=== PATIENT | female | born 1955 | race Caucasian/White ===

== ENCOUNTER 2018-02-20 02:47 | Inpatient (IN) ==
[2018-02-20] MEDS ORDERED: Vancomycin 1,000 MG VIAL IVPB ONE (03:04)
[2018-02-20] MEDS ORDERED: Piperacillin/Tazobactam 3.375 GM in 0.9 % Sodium Chloride Mini Bag 100 ML IVPB ONE (03:04)
[2018-02-20] MEDS ORDERED: Isovue-370 500 ML INFUS..BTL IV ONE (03:04)
[2018-02-20] MEDS: 0.9 % Sodium Chloride 1,000 ML IVC ONE ×2 (03:44→03:56)
[2018-02-20 03:52] LABS: Basophils # 0.1 K/mcL (0.0-0.2); Basophils % 0.5 %; Eosinophils # 0.3 K/mcL (0.0-0.6); Eosinophils % 2.6 %; Hematocrit 46.3 % (35.3-44.9); Hemoglobin 14.9 g/dL (11.5-15.4); Immature Granulocytes % 1.7 % (0-4); Lymphocytes # 3.5 K/mcL (0.6-4.6); Lymphocytes % 28.3 %; Mean Corpuscular HGB Conc 32.2 g/dL (31.6-35.5); Mean Corpuscular Hemoglobin 30.6 pg (28.0-33.3); Mean Corpuscular Volume 95.1 fL (83.0-100.0); Mean Platelet Volume 9.7 fL (9.4-12.4); Monocytes # 0.5 K/mcL (0.0-1.3); Monocytes % 3.6 %; Neutrophils # 7.9 K/mcL (1.6-8.9); Platelet Count 296 K/mcL (140-400); Red Blood Count 4.87 M/mcL (3.82-4.97); Red Cell Distribution Width 14.4 % (11.5-14.5); Segmented Neutrophils % 63.3 %
[2018-02-20] MEDS ORDERED: Furosemide 80 MG in 0.9 % Sodium Chloride 50 ML IVPB ONE (03:59)
[2018-02-20 04:00] LABS: INR 1.1; Prothrombin Time 12.4 Seconds (9.4-12.1)
[2018-02-20] MEDS ORDERED: Furosemide 100 MG/10 ML VIAL ONE ×2 (04:01→04:51)
[2018-02-20 04:03] LABS: ABG Base Excess -5 mEq/L (-2 to 3); ABG HCO3 28 mEq/L (21-27); ABG Oxygen Saturation 82 % (95-98); ABG PCO2 91 mmHg (35-45); ABG PO2 65 mmHg (85-104); ABG TCO2 31 mEq/L (20-26)
[2018-02-20] MEDS ORDERED: *HR* Rocuronium Bromide 50 MG/5 ML VIAL IVP ONE (04:07)
[2018-02-20] MEDS ORDERED: *HR* Etomidate 20 MG/10 ML AMPUL IVP ONE (04:07)
[2018-02-20 04:18] LABS: Albumin 3.4 g/dL (3.5-5.7); Albumin/Globulin Ratio 1.1 (1.1-2.2); Bilirubin,Direct 0.1 mg/dL (0.0-0.2); Bilirubin,Indirect 0.2 mg/dL (0.0-1.2); Bilirubin,Total 0.3 mg/dL (0.3-1.0); Globulin 3.1 g/dL (2.4-3.5); Total Protein 6.5 g/dL (6.4-8.9)
[2018-02-20] MEDS ORDERED: Nitroglycerin 25 MG/250 ML INFUS..BTL IVC ONE (04:18)
[2018-02-20 04:20] LABS: BUN/Creatinine Ratio 18 (6-26); Blood Urea Nitrogen 18 mg/dL (8-23); Calcium 8.5 mg/dL (8.6-10.3); Carbon Dioxide 21 mEq/L (23-29); Chloride 100 mEq/L (98-107); Glucose 398 mg/dL (70-105); Osmolality,Calculated 291 (280-300); Potassium 4.2 mEq/L (3.5-5.1); Sodium 131 mEq/L (136-145); eGFR For African Americans > 60 (> 60); eGFR For Non-African Americans 56 (> 60)
[2018-02-20 04:23] LABS: Troponin I 0.84 ng/mL (< 0.04)
[2018-02-20] MEDS ORDERED: Heparin 25,000 UNIT/500 ML D5W 25,000 UNIT/500 ML BAG IVC ONE (04:25)
[2018-02-20] MEDS ORDERED: *HR* Heparin 5,000 UNIT/ML VIAL IVP PRN ×2 (04:30)
[2018-02-20] MEDS ORDERED: *HR* Heparin 5,000 UNIT/ML VIAL IVP ONE (04:30)
--- NOTE | 2018-02-20 04:54 | Emergency Department Note ---
Disposition Clinical Impression: Respiratory failure Qualifiers: Chronicity: acute Respiratory failure complication: hypoxia and hypercapnia Qualified Code(s): J96.01 - Acute respiratory failure with hypoxia Pulmonary edema Qualifiers: Chronicity: acute Qualified Code(s): J81.0 - Acute pulmonary edema Disposition: Admitted As Inpatient Condition: Critical Time of Disposition: 05:52 General Adult HPI - General Chief complaint: ED Shortness of Breath/Dyspnea Time Seen by Provider: 02/20/18 03:04 Source: family, EMS Mode of arrival: EMS Limitations: physical limitation Nursing Notes Reviewed: Yes Vital Signs Reviewed: Yes - History of Present Illness HPI Narrative: Patient is a 62-year-old female with a past medical history of diabetes and hypertension came in by squad for respiratory decompensation. [place] the patient was completely fine until she began having chest pain that radiated into her right arm and he called the squad. He states by time the squad arrived the patient had deteriorated she is having difficulty breathing. On arrival by squad the patient was spitting poor oxygen saturation she was frothing at the mouth she is also very pale and diaphoretic. Pain Scale: 0 - Related Data Home Medications Medication Instructions Recorded Confirmed Amlodipine 10/21/16 Aspirin 10/21/16 10/21/16 Lexapro 10/21/16 Lisinopril-HCTZ 10-12.5 10/21/16 Metformin 10/21/16 Previous Rx's Medication Instructions Recorded Albuterol Sulfate [Albuterol 2 puff IH Q4HR PRN #1 unit 10/21/16 Inhaler] Amoxicillin/Clavulanate [Augmentin] 875 mg PO BIDWM #20 tablet 10/21/16 Ondansetron [Zofran ODT] 8 mg SL TID PRN #9 tab.rapdis 10/21/16 Oseltamivir [Tamiflu] 75 mg PO BID #10 capsule 10/21/16 Allergies Allergy/AdvReac Type Severity Reaction Status Date / Time No Known Allergies Allergy Verified 10/21/16 16:46 Limitations: ROS unobtainable due to patients medical condition Past Medical History - Past Medical History Attestation: Yes The following information was validated with the patient. Medical history: Reports: diabetes, hypertension Psychiatric history: Reports: no psych history - Social History Smoking Status: Former smoker Smokeless Tobacco Status: No Alcohol use: Reports: none Drug use: Reports: none Physical Exam - General General appearance: obtunded - Head Head exam: atraumatic, normocephalic, normal inspection - Eye Eye exam: Present: normal appearance, PERRL - ENT ENT exam: normal exam, mucous membranes dry - Neck Neck exam: Present: normal inspection, trachea midline - Chest Chest inspection: Present: normal inspection, symmetric chest wall rise. Absent : tenderness - Respiratory Respiratory exam: Present: respiratory distress (tachypnea with hypoxia; bag valve masked), other (lung sounds diminished bilaterally, diffuse rales) - Cardiovascular Cardiovascular exam: Present: tachycardia, normal heart sounds, +S1, +S2 - Abdominal Exam Abdominal exam: Present: soft, normal bowel sounds - Expanded Lower Extremity Exam Upper leg exam: Present: other (bilateral pulses 2+ in upper and lower extremities) Neurovascular/Tendon exam: Absent: pulse deficit - Neurological Exam Neurological exam: Present: other (altered mental status followed by sedation and intubation) - Skin Skin exam: Present: cyanosis (of the face), diaphoresis, pallor Course Course Narrative: On arrival the patient's vital signs showed saturation of 70% on 15 L nonrebreather, tachycardia in the 160s, normotension. Symptoms sound acute in nature. Given the patient's acute presentation and normotension with hypoxia and tachycardia, PE versus acute pulmonary edema was initially considered. The patient was rapidly intubated after being aggressively bag-valve masked. Peripheral IV access was obtained as well as an IO placed. Her EKG was negative for ST segment changes as well as atrial fibrillation with RVR. CT of the head and the chest which showed no evidence of pulmonary embolism but did show significant pulmonary edema which was preventing oxygenation. Cardiology consultation was made by the attending Dr. Ibarra in his recommended aggressive diuresis as well as dopamine for chronotropic support. Patient was given 80 mg of furosemide with scheduled 20 mg hourly. A right IJ was placed for access. Dopamine was initiated. Patient continued to be normotensive. Arterial line was placed. I show nitroglycerin was initiated however patient had an immediate drop in blood pressure. Broad-spectrum antibiotics were initiated patient likely had aspiration. Blood cultures sent. Patient does have lactic acidosis. Also considering GA, patient was heparinized. 5:05: Patient remains tachycardic at 160, oxygen saturation of 85%, and blood pressure of 88/54. Receiving 2nd dose of lasix 20mg, total 100mg. Dopamine drip running. Arterial line placed. Repeat EKG ordered. 5:19: HR 150, BP 92/33, 90% on vent - Discussed patient case with the hospitalist and agree to accept the patient to the ICU. 5:41: Repeat EKG shows sinus tachycardia at a rate of 149 bpm. Normal axis. CO is 95, QRS is 88, QT is 325 and QTc is 410 and these are within normal limits. No signs of ischemia. 6:30: Patient appears to be improving. Transferred to ICU for continuation of care. Vital Signs Temperature 98.6 F 02/20/18 02:52 Pulse Rate 163 02/20/18 02:52 Respiratory Rate 16 02/20/18 02:52 Blood Pressure 128/110 02/20/18 02:52 O2 Sat by Pulse Oximetry 74 02/20/18 02:52 Temperature 98.6 F 02/20/18 02:52 Pulse Rate 155 02/20/18 06:16 Respiratory Rate 28 02/20/18 06:39 Blood Pressure 88/50 02/20/18 06:39 O2 Sat by Pulse Oximetry 85 02/20/18 06:16 Oxygen Delivery Oxygen Delivery Ventilator Procedures - Central Line Placement Right IJ Central Line Inserted*: Yes Central Line Catheter Replacement*: Yes Central Line Insertion: emergent Procedural Pause: verify patient name and date of , timeout performed per policy, chris and assess the site, assemble equipment and verify supplies, perform hand hygiene During the Procedure: clinician is wearing sterile gloves, cap, mask,& gown during insertion, sterile field and sterile technique are maintained, patient's face is covered with drape or mask and wearing a cap, everyone in room is wearing a mask Central Line Prep: Chlorhexidine scrub Prep the Procedure Site: apply chloraprep to the skin using a back and forth scrubbing motion, apply chloraprep for 30 seconds (upper body), 1-2 min ( femoral sites), allow prep to dry, drape the patient with a full body drape Ultrasound Used for Placement: Yes Central Line Lumen Inserted: triple Post Procedure: sutured in place, good blood return, all ports aspirated, flushed, capped, sterile dressing applied, guide wire removed and visualized, dressing is dated Post Procedure X-Ray: tip of catheter in good position, no pneumothorax seen Patient Tolerated Procedure: well, no complications Complications: none Name of Clinician Inserting Central Line: valentina Clinician Assisting/Completing Checklist: jody Date: 02/20/18 Time: 05:54 - Intubation Time out performed: Yes sedative: Etomidate Mg Given: 20 paralytic: Rocuronium Mg Given: 100 Laryngoscope: Darron ET Tube Size: 7.5 ET Tube Uncuffed: Yes Tube Secured Depth (cm): 23 Tube Secured Location: lips Tube Placement Confirmation: visualized tube passing through cords, equal breath sounds bilaterally, no breath sounds over epigastrium Patient Tolerated Procedure: well Intubation Complications: none - IO Left Tibia Time Out Performed: Yes IO Instrument Used to Penetrate the Cortex: battery powered IO drill Patient Tolerated Procedure: well Complications: none Medical Decision Making - Medical Records Medical records reviewed: Yes I reviewed the patient's medical records. - Lab Data Lab results reviewed: Yes I reviewed the patient's lab results. Result diagrams: 02/20/18 03:37 02/20/18 03:37 Lab Results 02/20/18 02/20/18 02/20/18 Range/Units 03:37 03:37 03:37 WBC 12.5 H (4.3-11.1) K/mcL RBC 4.87 (3.82-4.97) M/mcL Hgb 14.9 (11.5-15.4) g/dL Hct 46.3 H (35.3-44.9) % MCV 95.1 (83.0-100.0) fL MCH 30.6 (28.0-33.3) pg MCHC 32.2 (31.6-35.5) g/dL RDW 14.4 (11.5-14.5) % Plt Count 296 (140-400) K/mcL MPV 9.7 (9.4-12.4) fL Immature Gran % 1.7 (0-4) % Seg Neutrophils % 63.3 % Lymphocytes % 28.3 % Monocytes % 3.6 % Eosinophils % 2.6 % Basophils % 0.5 % Neutrophils # 7.9 (1.6-8.9) K/mcL Lymphocytes # 3.5 (0.6-4.6) K/mcL Monocytes # 0.5 (0.0-1.3) K/mcL Eosinophils # 0.3 (0.0-0.6) K/mcL Basophils # 0.1 (0.0-0.2) K/mcL PT 12.4 H (9.4-12.1) Seconds INR 1.1 APTT 31.7 (26.0-36.0) Seconds Sample Site ABG pH (7.32-7.45) pH Units ABG pCO2 (35-45) mmHg ABG pO2 (85-104) mmHg ABG HCO3 (21-27) mEq/L ABG Total CO2 (20-26) mEq/L ABG O2 Saturation (95-98) % ABG Base Excess (-2 to 3) mEq/L Ceasar Test O2 Delivery Device Inspired O2 (1-15=lpm [id number]=%) Sodium (136-145) mEq/L Potassium (3.5-5.1) mEq/L Chloride (98-107) mEq/L Carbon Dioxide (23-29) mEq/L BUN (8-23) mg/dL Creatinine (0.60-1.20) mg/dL Est GFR ( Amer) (> 60) Est GFR (Non-Af Amer) (> 60) BUN/Creatinine Ratio (6-26) Glucose (70-105) mg/dL Calculated Osmolality (280-300) Lactic Acid (0.5-2.2) mmol/L Calcium (8.6-10.3) mg/dL Total Bilirubin 0.3 (0.3-1.0) mg/dL Direct Bilirubin 0.1 (0.0-0.2) mg/dL Indirect Bilirubin 0.2 (0.0-1.2) mg/dL AST 71 H (13-39) Units/L ALT 119 H (7-52) Units/L Alkaline Phosphatase 73 (34-104) Units/L Creatine Kinase 104 (30-223) Units/L Troponin I (< 0.04) ng/mL B-Natriuretic Peptide (Less than 100) pg/mL Serum Total Protein 6.5 (6.4-8.9) g/dL Albumin 3.4 L (3.5-5.7) g/dL Globulin 3.1 (2.4-3.5) g/dL Albumin/Globulin Ratio 1.1 (1.1-2.2) 02/20/18 02/20/18 02/20/18 Range/Units 03:37 03:37 03:37 WBC (4.3-11.1) K/mcL RBC (3.82-4.97) M/mcL Hgb (11.5-15.4) g/dL Hct (35.3-44.9) % MCV (83.0-100.0) fL MCH (28.0-33.3) pg MCHC (31.6-35.5) g/dL RDW (11.5-14.5) % Plt Count (140-400) K/mcL MPV (9.4-12.4) fL Immature Gran % (0-4) % Seg Neutrophils % % Lymphocytes % % Monocytes % % Eosinophils % % Basophils % % Neutrophils # (1.6-8.9) K/mcL Lymphocytes # (0.6-4.6) K/mcL Monocytes # (0.0-1.3) K/mcL Eosinophils # (0.0-0.6) K/mcL Basophils # (0.0-0.2) K/mcL PT (9.4-12.1) Seconds INR APTT (26.0-36.0) Seconds Sample Site ABG pH (7.32-7.45) pH Units ABG pCO2 (35-45) mmHg ABG pO2 (85-104) mmHg ABG HCO3 (21-27) mEq/L ABG Total CO2 (20-26) mEq/L ABG O2 Saturation (95-98) % ABG Base Excess (-2 to 3) mEq/L Ceasar Test O2 Delivery Device Inspired O2 (1-15=lpm [id number]=%) Sodium 131 L (136-145) mEq/L Potassium 4.2 (3.5-5.1) mEq/L Chloride 100 (98-107) mEq/L Carbon Dioxide 21 L (23-29) mEq/L BUN 18 (8-23) mg/dL Creatinine 1.00 (0.60-1.20) mg/dL Est GFR ( Amer) > 60 (> 60) Est GFR (Non-Af Amer) 56 L (> 60) BUN/Creatinine Ratio 18 (6-26) Glucose 398 H (70-105) mg/dL Calculated Osmolality 291 (280-300) Lactic Acid 5.0 H* (0.5-2.2) mmol/L Calcium 8.5 L (8.6-10.3) mg/dL Total Bilirubin (0.3-1.0) mg/dL Direct Bilirubin (0.0-0.2) mg/dL Indirect Bilirubin (0.0-1.2) mg/dL AST (13-39) Units/L ALT (7-52) Units/L Alkaline Phosphatase (34-104) Units/L Creatine Kinase (30-223) Units/L Troponin I 0.84 H* (< 0.04) ng/mL B-Natriuretic Peptide 93 (Less than 100) pg/mL Serum Total Protein (6.4-8.9) g/dL Albumin (3.5-5.7) g/dL Globulin (2.4-3.5) g/dL Albumin/Globulin Ratio (1.1-2.2) 02/20/18 Range/Units 03:59 WBC (4.3-11.1) K/mcL RBC (3.82-4.97) M/mcL Hgb (11.5-15.4) g/dL Hct (35.3-44.9) % MCV (83.0-100.0) fL MCH (28.0-33.3) pg MCHC (31.6-35.5) g/dL RDW (11.5-14.5) % Plt Count (140-400) K/mcL MPV (9.4-12.4) fL Immature Gran % (0-4) % Seg Neutrophils % % Lymphocytes % % Monocytes % % Eosinophils % % Basophils % % Neutrophils # (1.6-8.9) K/mcL Lymphocytes # (0.6-4.6) K/mcL Monocytes # (0.0-1.3) K/mcL Eosinophils # (0.0-0.6) K/mcL Basophils # (0.0-0.2) K/mcL PT (9.4-12.1) Seconds INR APTT (26.0-36.0) Seconds Sample Site L Radial ABG pH 7.10 L* (7.32-7.45) pH Units ABG pCO2 91 H* (35-45) mmHg ABG pO2 65 L (85-104) mmHg ABG HCO3 28 H (21-27) mEq/L ABG Total CO2 31 H (20-26) mEq/L ABG O2 Saturation 82 L (95-98) % ABG Base Excess -5 L (-2 to 3) mEq/L Ceasar Test Positive O2 Delivery Device Bagging Inspired O2 100.0 (1-15=lpm ka62-487=%) Sodium (136-145) mEq/L Potassium (3.5-5.1) mEq/L Chloride (98-107) mEq/L Carbon Dioxide (23-29) mEq/L BUN (8-23) mg/dL Creatinine (0.60-1.20) mg/dL Est GFR ( Amer) (> 60) Est GFR (Non-Af Amer) (> 60) BUN/Creatinine Ratio (6-26) Glucose (70-105) mg/dL Calculated Osmolality (280-300) Lactic Acid (0.5-2.2) mmol/L Calcium (8.6-10.3) mg/dL Total Bilirubin (0.3-1.0) mg/dL Direct Bilirubin (0.0-0.2) mg/dL Indirect Bilirubin (0.0-1.2) mg/dL AST (13-39) Units/L ALT (7-52) Units/L Alkaline Phosphatase (34-104) Units/L Creatine Kinase (30-223) Units/L Troponin I (< 0.04) ng/mL B-Natriuretic Peptide (Less than 100) pg/mL Serum Total Protein (6.4-8.9) g/dL Albumin (3.5-5.7) g/dL Globulin (2.4-3.5) g/dL Albumin/Globulin Ratio (1.1-2.2) - Radiology Data Radiology results reviewed: Yes I reviewed the patient's radiology results. Head CT 02/20/18 00:00 IMPRESSION: No acute intracranial abnormality. Parotid calcifications bilaterally, as can be seen in Sjogren's syndrome. D/ / Ky Aguilar MD / Ky Aguilar MD Interpreting Provider: Ky Aguilar MD Chest CTA 02/20/18 03:05 IMPRESSION: No evidence of pulmonary embolism. Severe airspace disease with very little aerated lung may represent pulmonary edema or other acute process. D/ / Ky Aguilar MD / Ky Aguilar MD Interpreting Provider: Ky Aguilar MD Chest X-Ray 02/20/18 04:33 IMPRESSION: Endotracheal tube and ET tube projecting at adequate position as above Diffuse airspace disease which may represent pulmonary edema, multifocal pneumonia or combination of the above. D/ / Juan Luis Avelar MD / Juan Luis Avelar MD Interpreting Provider: Juan Luis Avelar MD - EKG Data EKG #1 EKG attestation: Yes I reviewed and interpreted this EKG. EKG results narrative: 5:41 shows sinus tachycardia at a rate of 149 bpm. No signs of ischemia. EKG #2 EKG attestation: Yes I reviewed and interpreted this EKG. Attestation Statement - Attestation Attestation: I examined this patient and my medical decision-making was reviewed with the Resident Physician. I agree with the documented findings, disposition and treatment plan as described except to the extent set forth below. Findings consistent with acute hypoxemic respiratory failure. Patient arrives by EMS with frothy sputum was and profound hypoxia and pallor. The patient was immediately assisted with bag valve mask ventilations. IV access was obtained. The patient was rapidly intubated with first pass access. I do suspect pulmonary embolism versus acute pulmonary edema. The patient's blood pressure is normal tensive and she does not a history of hypertension. The onset of her symptoms was reported to be acute witnessed by people at a campground. After emergent intubation there was ongoing difficulty with oxygenation. She can currently had tachycardia. EKG showed nonspecific ST segment changes as well as A. fib with rapid ventricular response. IV ACCESS WAS OBTAINED AND THE PATIENT WAS EMERGENTLY TAKEN TO CAT SCAN FOR ANGIOGRAPHY OF THE CHEST AND A CAT SCAN OF THE HEAD. CT SCAN OF THE HEAD SHOWS NO ACUTE FINDINGS. ANGIOGRAPHY OF THE CHEST SHOWS NO EVIDENCE OF PULMONARY EMBOLISM HOWEVER THERE IS SIGNIFICANT PULMONARY EDEMA WHICH AFFECTS MOST OF THE LUNG NOGUEIRA PREVENTING APPROPRIATE OXYGENATION. I DID EMERGENTLY SPEAK WITH OUR ON-CALL [employer]. SU. HE RECOMMENDED AGGRESSIVE DIURESIS. GIVEN HER NORMAL TENSIVE BLOOD PRESSURE THIS WAS INITIATED WITH ADMINISTRATION OF 80 MG OF FUROSEMIDE. SHE DID HAVE 600 ML OF URINE OUTPUT AFTER DIURESIS. THE PATIENT HAD RIGHT INTERNAL JUGULAR CENTRAL LINE PLACED EMERGENTLY FOR AXIS. IT WAS RECOMMENDED TO START DOPAMINE TO MAINTAIN NORMAL TENSION AFTER DIURESIS. SHE DID ACTUALLY HAVE HYPOTENSION AND REQUIRED INITIATION OF DOPAMINE. I WOULD CONTINUE AGGRESSIVE DIURESIS, CHRONOTROPIC SUPPORT WITH DOPAMINE, BROAD-SPECTRUM ANTIBIOTICS WERE INITIATED PATIENT LIKELY HAD ASPIRATION DURING HYPOXIC PREHOSPITAL CONDITIONS. BLOOD CULTURES WERE ALSO SENT. SHE WAS FOUND HAVE LACTIC ACIDOSIS IS ALSO ELEVATED TROPONIN. I WOULD START HEPARINIZATION IN THE EVENT THAT GA WAS THE CAUSE OF HER ACUTE PULMONARY EDEMA. WE WILL REPEAT EKG. CARDIAC BIOMARKERS WILL BE TRENDED. GLUCOSE WILL BE MONITORED AND EUGLYCEMIA MAINTAINED. THE PATIENT WILL BE ADMITTED TO THE INTENSIVE CARE UNIT. ARTERIAL LINE PLACEMENT WILL BE OBTAINED TO ASSURE APPROPRIATE MONITORING OF BLOOD PRESSURE GIVEN VASOACTIVE MEDICATIONS. I spent greater than 2 hours of critical care time resuscitating this critically ill patient suffering from respiratory failure and ongoing hypoxia. This was excluding billable procedures.
[2018-02-20 05:00] LABS: Activated Partial Thrombo Time 31.7 Seconds (26.0-36.0)
[2018-02-20] MEDS: Heparin 25,000 UNIT/500 ML D5W 25,000 UNIT/500 ML BAG IVC SCH (05:11)
[2018-02-20] MEDS ORDERED: *HR* FentaNYL (PF) 100 MCG/2 ML VIAL ONE (05:54)
[2018-02-20] MEDS ORDERED: Furosemide 20 MG/2 ML VIAL IVP ONE ×2 (06:03→12:47)
[2018-02-20 07:33] LABS: Hematocrit 45.5 % (35.3-44.9); Hemoglobin 14.4 g/dL (11.5-15.4); Mean Corpuscular HGB Conc 31.6 g/dL (31.6-35.5); Mean Corpuscular Hemoglobin 30.1 pg (28.0-33.3); Mean Platelet Volume 9.7 fL (9.4-12.4); Platelet Count 316 K/mcL (140-400); Red Blood Count 4.79 M/mcL (3.82-4.97); Red Cell Distribution Width 14.2 % (11.5-14.5)
[2018-02-20 07:41] LABS: INR 1.2; Prothrombin Time 13.8 Seconds (9.4-12.1)
[2018-02-20] MEDS ORDERED: *HR* Midazolam HCl 2 MG/2 ML VIAL IVP ONE (07:48)
[2018-02-20] MEDS ORDERED: *HR* Midazolam HCl 2 MG/2 ML VIAL ONE ×2 (07:49→15:08)
[2018-02-20] MEDS: Norepinephrine 4 MG in D5% in Water 250 ML IVC SCH ×2 (07:51→13:01)
[2018-02-20] MEDS: FentaNYL (PF) 1,000 MCG in 0.9 % Sodium Chloride 80 ML IVC SCH ×2 (07:51→21:20)
[2018-02-20 07:52] LABS: Magnesium 1.9 mg/dL (1.6-2.6); Phosphorous 6.9 mg/dL (2.7-4.5)
[2018-02-20 07:58] LABS: Troponin I 8.85 ng/mL (< 0.04)
[2018-02-20] MEDS ORDERED: Aminoglycoside Consult 1 EACH MC ONE (08:01)
[2018-02-20 08:02] LABS: Activated Partial Thrombo Time 178.7 Seconds (26.0-36.0)
[2018-02-20 08:34] LABS: ABG Base Excess -10 mEq/L (-2 to 3); ABG HCO3 21 mEq/L (21-27); ABG Oxygen Saturation 91 % (95-98); ABG PCO2 69 mmHg (35-45); ABG PH 7.09 pH Units (7.32-7.45); ABG PO2 83 mmHg (85-104); ABG TCO2 23 mEq/L (20-26); Blood Gas Modality ASSIST CONTROL; Blood Gas Respiration Rate 28; Blood Gas VT 380 cc
[2018-02-20 08:57] LABS: Heparin anti-factor XA UFH 1.06 IU/mL (0.30-0.70)
--- NOTE | 2018-02-20 09:21 | Pulmonology History & Physical ---
<Neeraj Cifuentes - Last Filed: 02/20/18 11:12> Date of Encounter: 02/20/18 Time of Encounter: 06:45 Assessment and Plan (1) Acute respiratory failure Current visit: Yes Status: Acute Systems based plan: - Patient seen and examined. - Labs, radiology, chart personally reviewed RN LACTATION CONSULTANT: - Confused but has significant metabolic derangements contributing to this. - Was not making purposeful movements initially but was following commands for nursing staff. Was moving all extremities. - Precedex and Fentanyl for sedation and pain control. Titrate to DELMAR 3. Pulmonary: - Severe V/Q mismatch due to pulmonary edema but underlying PNA cannot be ruled out. - CTA chest negative for PE. - BCX/UCX/Sputum Cx/strep pneumonia/Legionella ordered - Zosyn, Vanc, Doxy for possible aspiration PNA. - MRSA swab now and deescalate ABX when able. - Respiratory acidosis: increased PEEP and TV to account for pulmonary edema and body habitus. Checking frequent ABGs. Patient was hypoxic in low-mid 80s even after being intubated in the ED. Once initial acidosis is corrected will placed her on low-lung volume preventative vent settings. - P/F initially 65 and now is 234, will titrate down O2 as tolerated to keep sats greater than 88-90%. - Vent bundle ordered Cardiovascular: - On Dopamine gtt from ER per cards recommendation, we started on Levophed --> titrate down to keep MAP > 60. - Cardiology consulted for increasing trops (0.84, 8.85), STAT echo ordered. Suspecting possible recent PR leading to acute heart failure although EKG does not show STEMI. - Tachycardic but is regular - Avoiding IVF at this time due to flash pulmonary edema - Spoke with Dr. Ward about echo and EF is 25-30% with no obvious wall motion abnormalities but was limited due to tachycardia, recommended repeat later this week once more stabilized GI: - NPO for now but if extubates soon, nutrition per dietary. Otherwise, will drop NG and start tube feeds. - GI prophylaxis per routine Heme: - On Heparin gtt for NSTEMI so no other DVT prophylaxis indicated at this time - Monitor H/H, coags while on heparin gtt - No obvious source of bleeding ID: - Mild leukocytosis and is afebrile - Continue antibiotics and plan to de-escalation - Trend CBC and monitor temp curves - PRN tylenol for fever Renal: - Non-gap metabolic acidosis but are holding off IVF at this time so will trend - Monitor renal function - Electrolytes as needed Endorcine: - Monitor blood glucose - SSI if needed Lines: - L Femoral Arterial line was very technically difficult due to body habitus, take caution when moving/rolling - R IJ CVC placed in ED under sterile conditions. - R tibial I/O removed - All lines checked and no evidence of infections Skin: - skin care to prevent pressure ulcers per nursing routine care Overall prognosis is poor Qualifiers: Respiratory failure complication: hypoxia and hypercapnia Qualified Code(s) : J96.01 - Acute respiratory failure with hypoxia; J96.02 - Acute respiratory failure with hypercapnia (2) Septic shock Current visit: Yes Status: Acute - meets sepsis criteria but believe more related to pulmonary edema, see plan above (3) Elevated troponin Current visit: Yes Status: Acute - will trend, cards following, on heparin gtt, no STEMI on EKG (4) Respiratory acidosis Current visit: Yes Status: Acute - significantly improved on most recent ABG, continue to trend and adjust (5) Pulmonary edema Current visit: Yes Status: Acute - suspected primary cause of resp failure but unclear etiology. Continue vent support and medical optimization Qualifiers: Chronicity: acute Qualified Code(s): J81.0 - Acute pulmonary edema History of Present Illness Chief complaint: resp failure HPI: Ms. Jean is a 62 year old female with history of diabetes and hypertension but states she never goes to a doctor. Arrived through the [facility] ED by squad for respiratory failure. Family states patient had been having some intermittent chest pain, B/L arm tingling, and feeling off for the last few weeks but none within the last week. [place] ok yesterday and today. [place] and the patient had been feeling fine until she got up to get a snack and started having chest pain that radiated into her right arm and called the squad. He states by time the squad arrived the patient had deteriorated and was having difficulty breathing. On arrival by squad the patient was hypoxic, very pale and diaphoretic. She was intubated in the ED and had suspected flash pulmonary edema. An IJ CVC was placed, started on dopamine per cardiology recommendation. Her initial trop was elevated, CTA negative for PE but did show edema vs PNA. Started on ABX for possible aspiration and sent to ICU. Upon arrival patient initially making non-purposeful movements but was making purposeful movement and following commands eventually. Started on sedation. STAT echo here to eval wall motion and EF. Past Med Surg Social Fam HX - Past Medical History Medical history: diabetes, hypertension Psychiatric history: no psych history - Past Surgical History Additional surgical history: hysterectomy galbladder - Social History Smoking Status: Former smoker Smokeless Tobacco Status: No Alcohol use: none Drug use: none Medications and Allergies Aspirin [Adult Aspirin Regimen] 81 mg PO DAILY 02/20/18 [History] Escitalopram [Lexapro] 10 mg PO DAILY 02/20/18 [History] Lisinopril/Hydrochlorothiazide [Zestoretic 20-12.5 mg Tablet] 1 tab PO DAILY 09/09 [History] Timolol Maleate 0.25% [Timolol Maleate 0.25%] 1 drop LEFT EYE BID 02/20/18 [ History] amLODIPine [Norvasc] 5 mg PO DAILY 02/20/18 [History] metFORMIN [Glucophage] 500 mg PO 0800 02/20/18 [History] 3 Allergy/AdvReac Type Severity Reaction Status Date / Time No Known Allergies Allergy Verified 02/20/18 10:08 ROS unobtainable: due to endotracheal tube, due to mental status All Systems: The remainder of the systems were reviewed and are negative Physical Examination Vital Signs: Vital Signs, Last 4 Hours Pulse Resp BP Pulse Ox 02/20/18 08:00 126 28 86/55 86 02/20/18 07:59 29 86/46 92 02/20/18 07:03 85 02/20/18 07:02 122 29 86/46 96 02/20/18 06:39 28 88/50 02/20/18 06:16 155 28 74/56 85 02/20/18 06:10 135 28 87/45 81 02/20/18 06:03 149 28 96/55 81 General appearance: appears uncomfortable Eyes: nonicteric ENT: oropharynx moist Neck: supple Effort: other (vent) Auscultation: bilateral: diminished breath sounds, rales Cardiovascular: other (tachy) Gastrointestinal: soft, non-tender Integumentary: normal Extremities: edema Musculoskeletal: no deformities pupils equal and round Results - Laboratory Findings CBC and BMP: 02/20/18 07:17 02/20/18 03:37 ABG ABG pH 7.09 pH Units (7.32-7.45) L* 02/20/18 08:30 ABG pCO2 69 mmHg (35-45) H D 02/20/18 08:30 ABG pO2 83 mmHg (85-104) L 02/20/18 08:30 ABG O2 Saturation 91 % (95-98) L 02/20/18 08:30 PT/INR, D-dimer PT 13.8 Seconds (9.4-12.1) H 02/20/18 07:17 Abnormal lab findings: Abnormal lab results WBC 17.2 K/mcL (4.3-11.1) H 02/20/18 07:17 Hct 45.5 % (35.3-44.9) H 02/20/18 07:17 PT 13.8 Seconds (9.4-12.1) H 02/20/18 07:17 APTT 178.7 Seconds (26.0-36.0) H* D 02/20/18 07:17 Heparin Anti-Xa, Unfract 1.06 IU/mL (0.30-0.70) H* 02/20/18 07:17 ABG pH 7.09 pH Units (7.32-7.45) L* 02/20/18 08:30 ABG pCO2 69 mmHg (35-45) H D 02/20/18 08:30 ABG pO2 83 mmHg (85-104) L 02/20/18 08:30 ABG O2 Saturation 91 % (95-98) L 02/20/18 08:30 ABG Base Excess -10 mEq/L (-2 to 3) L 02/20/18 08:30 Sodium 131 mEq/L (136-145) L 02/20/18 03:37 Carbon Dioxide 21 mEq/L (23-29) L 02/20/18 03:37 Est GFR (Non-Af Amer) 56 (> 60) L 02/20/18 03:37 Glucose 398 mg/dL (70-105) H 02/20/18 03:37 Lactic Acid 3.0 mmol/L (0.5-2.2) H 02/20/18 07:17 Calcium 8.5 mg/dL (8.6-10.3) L 02/20/18 03:37 Phosphorus 6.9 mg/dL (2.7-4.5) H 02/20/18 07:17 AST 71 Units/L (13-39) H 02/20/18 03:37 ALT 119 Units/L (7-52) H 02/20/18 03:37 Troponin I 8.85 ng/mL (< 0.04) H* 02/20/18 07:17 Albumin 3.4 g/dL (3.5-5.7) L 02/20/18 03:37 <Gunnar Lopez S - Last Filed: 02/20/18 22:10> Date of Encounter: 02/20/18 History of Present Illness HPI: Ms. Jean is a 62 year old female All Systems: The remainder of the systems were reviewed and are negative Physical Examination Vital Signs: Vital Signs, Last 4 Hours Temp Pulse Resp BP Pulse Ox 02/20/18 21:38 28 100 02/20/18 21:00 101 28 102/52 100 02/20/18 20:33 98.2 F 02/20/18 20:00 104 32 111/76 100 02/20/18 19:19 28 100 02/20/18 19:00 98 28 92/58 100 02/20/18 18:00 97 32 106/62 99 Results - Laboratory Findings CBC and BMP: 02/20/18 07:17 02/20/18 03:37 ABG ABG pH 7.32 pH Units (7.32-7.45) 02/20/18 13:24 ABG pCO2 38 mmHg (35-45) 02/20/18 13:24 ABG pO2 186 mmHg (85-104) H D 02/20/18 13:24 ABG O2 Saturation 100 % (95-98) H 02/20/18 13:24 PT/INR, D-dimer PT 13.8 Seconds (9.4-12.1) H 02/20/18 07:17 Abnormal lab findings: Abnormal lab results WBC 17.2 K/mcL (4.3-11.1) H 02/20/18 07:17 Hct 45.5 % (35.3-44.9) H 02/20/18 07:17 PT 13.8 Seconds (9.4-12.1) H 02/20/18 07:17 APTT 178.7 Seconds (26.0-36.0) H* D 02/20/18 07:17 Heparin Anti-Xa, Unfract 1.06 IU/mL (0.30-0.70) H* 02/20/18 07:17 ABG pO2 186 mmHg (85-104) H D 02/20/18 13:24 ABG HCO3 20 mEq/L (21-27) L 02/20/18 13:24 ABG O2 Saturation 100 % (95-98) H 02/20/18 13:24 ABG Base Excess -6 mEq/L (-2 to 3) L 02/20/18 13:24 Sodium 131 mEq/L (136-145) L 02/20/18 03:37 Carbon Dioxide 21 mEq/L (23-29) L 02/20/18 03:37 Est GFR (Non-Af Amer) 56 (> 60) L 02/20/18 03:37 Glucose 398 mg/dL (70-105) H 02/20/18 03:37 Calcium 8.5 mg/dL (8.6-10.3) L 02/20/18 03:37 Phosphorus 6.9 mg/dL (2.7-4.5) H 02/20/18 07:17 AST 71 Units/L (13-39) H 02/20/18 03:37 ALT 119 Units/L (7-52) H 02/20/18 03:37 Troponin I 33.12 ng/mL (< 0.04) H* 02/20/18 18:54 Albumin 3.4 g/dL (3.5-5.7) L 02/20/18 03:37 Ur Specific [place] 1.026 (1.010-1.025) H 02/20/18 11:45 - Attending Attestation I saw and evaluated this patient and my medical decision-making was reviewed with the Resident Physician. I agree with the documented findings, disposition and treatment plan as described except to the extent set forth below. We independently had [id number] contact with the patient I spent 50 minutes of Critical Care time with this patient. It involved decision making of high complexity to assess, manipulate, and support vital organ system failure and/or to prevent further life threatening deterioration of the patient's condition. The time involved in the performance of separately reportable procedures was not counted toward critical care time. Patient seen and examined at bedside Labs, radiology, chart personally reviewed. Management was reviewed during multidisciplinary critical care rounds. RN LACTATION CONSULTANT:Patient initially was confused after few hrs she was completely awake and relaxed following commands were able to communicate . Pulm: Patient developed hypoxic and hypercarbic respiratory failure with mixed respiratory acidosis and metabolic acidosis Patient is now in tidal volume above 8 ml if the acidosis reasonably corrected will drop down the tidal volume . The V/Q mismatch is most likely due to hydrostatic pulmonary edema . Superimposed pneumonia cannot be ruled out . Cards: Patient is on levophed had NSTEMI now in cardiogenic shock with Levophed . Cardiac cath severe Triple Vessel disease will need CABG . saw the patient evaluating for future CABG. FEN-GI:NPO for now . Renal: Labs and output reviewed ID: Ruling out sepsis madrigal culture done to continue broad spectrum antibiotics . Heme/Onc: Labs are reviewed started on Heparin for ACS Endo: Glucose Monitored Integ/MSK: Skin Care per routine ICU Nursing Protocol to prevent ulcers. Lines: All lines examined without evidence of infection : Dispo: Still critically ill. CODE:Full Code .
[2018-02-20] MEDS ORDERED: Naloxone 0.4 MG/ML INJ IVP PRN (09:39)
[2018-02-20] MEDS ORDERED: Vancomycin (wt based) 1,000 MG VIAL IVPB SCH (10:00)
[2018-02-20] MEDS ORDERED: Perflutren Lipid Microsphere 1.3 ML in 0.9 % Sodium Chloride 8.7 ML IVP ONE (10:03)
[2018-02-20] MEDS ORDERED: Perflutren Lipid Microsphere 2 ML VIAL ONE (10:06)
[2018-02-20 10:33] LABS: ABG Base Excess -9 mEq/L (-2 to 3); ABG HCO3 18 mEq/L (21-27); ABG Oxygen Saturation 100 % (95-98); ABG PCO2 40 mmHg (35-45); ABG PH 7.26 pH Units (7.32-7.45); ABG PO2 234 mmHg (85-104); ABG TCO2 19 mEq/L (20-26); Blood Gas Modality ASSIST CONTROL; Blood Gas Respiration Rate 28; Blood Gas VT 450 cc
[2018-02-20] MEDS ORDERED: Lacri-Lube 3.5 GM TUBE BOTH EYES PRN (10:51)
[2018-02-20] MEDS ORDERED: 0.9 % Sodium Chloride 1,000 ML ONE ×3 (10:54→15:05)
[2018-02-20] MEDS ORDERED: Dextrose Gel 15 GM/37.5 ML TUBE PO PRN ×2 (11:43)
[2018-02-20] MEDS ORDERED: D5% in Water 1,000 ML IVC PRN (11:43)
[2018-02-20] MEDS ORDERED: *HR* Dextrose 50 % in Water (Syg) 50 ML SYRINGE IVP PRN (11:43)
[2018-02-20] MEDS ORDERED: Insulin Human Regular 10 UNIT in 0.9 % Sodium Chloride 10 ML IV ONE (11:44)
[2018-02-20 11:57] LABS: Bilirubin,Urine Negative (Negative); Blood,Urine Negative (Negative); Clarity,Urine Clear (Clear); Color,Urine Yellow (Yellow); Glucose,Urine (UA) Normal (Normal); Ketones,Urine Negative (Negative); Leukocyte Esterase,Urine Negative (Negative); Nitrite,Urine Negative (Negative); Protein,Urine Negative (Neg-Trace); Specific Gravity,Urine 1.026 (1.010-1.025); Urobilinogen,Urine Normal (Normal)
[2018-02-20] MEDS: Piperacillin/Tazobactam 3.375 GM in 0.9 % Sodium Chloride Mini Bag 100 ML IVPB SCH ×2 (12:02→19:58)
[2018-02-20] MEDS: Doxycycline 100 MG in 0.9 % Sodium Chloride Mini Bag 100 ML IVPB SCH ×2 (12:02→22:41)
[2018-02-20] MEDS: Insulin LISPRO 300 UNITS/3 ML VIAL SQ SCH ×2 (12:03→18:19)
[2018-02-20 12:16] LABS: Troponin I 35.51 ng/mL (< 0.04)
--- NOTE | 2018-02-20 12:16 | Cardiology Consult Note ---
<Clif Augustine L - Last Filed: 02/20/18 12:14> Date of Encounter: 02/20/18 Time of Encounter: 11:10 Assessment and Plan (1) NSTEMI (non-ST elevated myocardial infarction) Current Visit: Yes Status: Acute Nstemi with troponin elevation up to 8.85 EKG shows sinus tachycardia with no ST elevation. HE 159. ST depression noted with tachycardia and resolved on repeat EKG. Currently pain free. Shakes head yes and no. TTE shows severe global systolic function with EF 25-30%. Recommend repeat study later this week once stabe. TTE completed with tachycardia. Continue heparin gtt. Currently NPO while intubated. Plan for OG tube placement. Add asa. No bb due to hypotension on norepinephrine. Family reports recent diagnosis of hepatic insufficiency. AST and alt elevated, will hold statin therapy. . LHC recommended once stable. (2) Heart failure, systolic, with acute decompensation Current Visit: Yes Status: Acute Acute decompensated systolic CHF with global dysfunction. EF 25-30%. CTA negative for PE. Showed acute airspace disease likely pulmonary edema, PNA could not be ruled out. Presents with acute pulmonary edema possibly secondary to NSTEMI. IV lasix was given this morning and started on IV antibiotics for possible PNA. Repeat lasix tis afternoon. LHC once stable to evaluate for ischemic cause. No bb or aceI with hypotension. Consider starting when able. Discussion w patient/family: The assessment and plan as outlined above was discussed with the patient and/or family members who expressed understanding and agreement. All questions were answered. Thank you for involving us in the care of your patient. Please call with any questions. History of Present Illness Consult date: 02/20/18 Requesting physician: Neeraj Cifuentes Consult reason: NSTEMI Chief complaint: Chest pain, respiratory distress History of present illness: Patient seen with multiple familiy members at bedside to answer questions. She is currently intubated and on fentanyl gtt. Ms. Jean is a 62 year old female with past medical history of HTN, HLD, DM type II, and hepatic insufficiency who [place]. She woke up yesterday morning and ate breakfast. Afterwards she developed chest burning. She decided to lay down. She continued to have increasing chest pain that radiated down her right arm. EMS was called. As EMS arrived she went in to respiratory distress. She required intubation. Troponin elevated up to 8.85. EKG shows no acute ST changes. Cardiology consulted for NSTEMI. She is currently requiring pressor support. Family states that she was c/o intermittent upper back pain and tingling in her right arm over the past few weeks and she thought it was from a pinched nerve. Past Med Surg Social Fam HX - Past Medical History Source: obtained from family Medical history: diabetes, hyperlipidemia, hypertension Psychiatric history: no psych history - Past Surgical History Additional surgical history: hysterectomy galbladder - Social History Smoking Status: Former smoker Smokeless Tobacco Status: No Alcohol use: none Drug use: none Medications and Allergies Aspirin [Adult Aspirin Regimen] 81 mg PO DAILY 02/20/18 [History] Escitalopram [Lexapro] 10 mg PO DAILY 02/20/18 [History] Lisinopril/Hydrochlorothiazide [Zestoretic 20-12.5 mg Tablet] 1 tab PO DAILY 09/09 [History] Timolol Maleate 0.25% [Timolol Maleate 0.25%] 1 drop LEFT EYE BID 02/20/18 [ History] amLODIPine [Norvasc] 5 mg PO DAILY 02/20/18 [History] metFORMIN [Glucophage] 500 mg PO 0800 02/20/18 [History] 3 Allergy/AdvReac Type Severity Reaction Status Date / Time No Known Allergies Allergy Verified 02/20/18 10:08 All Systems Review: The remainder of the systems were reviewed and are negative Physical Examination Vital Signs, Last 4 Hours Pulse Resp BP Pulse Ox 02/20/18 11:43 28 109/60 97 02/20/18 11:19 93 28 106/57 96 02/20/18 10:00 112 28 96/53 98 02/20/18 09:13 28 83/42 96 02/20/18 09:00 111 28 83/40 99 General: Other (Sedated and intubated. ) HEENT: Atraumatic Neck: No JVD, Normal carotid pulses Cardiac: Reg Rate and Rhythm, Normal S1 and S2, No Murmur Lungs: Normal Breath Sounds, No Wheeze, Rales, Rhonchi, Other (Requiring ventilator support) Neuro: Alert and responsive, No focal deficits noted Abdomen: Soft, Non-Tender Skin: No rashes noted on visualized skin Musculoskeletal: No Chest Wall Tenderness Extremities: No Clubbing, No Cyanosis, Normal Pulses, Other (Trace BLE edema) Results 02/20/18 07:17 02/20/18 03:37 Lab Results 02/20/18 02/20/18 02/20/18 07:17 07:17 07:17 WBC 17.2 H Hgb 14.4 Hct 45.5 H Plt Count 316 INR 1.2 APTT 178.7 H* D Magnesium 1.9 Troponin I 8.85 H* - Imaging and Cardiology Echo: report reviewed - EKG Interpretation EKG results cardiology: personally reviewed Consult Discharge Plan - Plan Referrals: Nicola Vinson, DO [Primary Care Provider] - <Scot Franco - Last Filed: 02/22/18 09:01> Date of Encounter: 02/22/18 - Attending Attestation I have personally performed a face to face evaluation on this patient. I have reviewed and agree with the care plan. History and Exam by me shows: Presents with possible flash pulmonary edema. Troponin elevated but no injury current on EKG. Will likely need heart cath when stable. Assessment and Plan Discussion w patient/family: The assessment and plan as outlined above was discussed with the patient and/or family members who expressed understanding and agreement. All questions were answered. Thank you for involving us in the care of your patient. Please call with any questions. History of Present Illness History of present illness: Ms. Jean is a 62 year old female All Systems Review: The remainder of the systems were reviewed and are negative Physical Examination Vital Signs, Last 4 Hours Temp Pulse Resp BP Pulse Ox 02/22/18 08:47 99.0 F 02/22/18 08:00 96 19 146/79 95 02/22/18 07:50 98 02/22/18 07:00 99 18 138/71 97 02/22/18 06:00 91 16 125/68 97 Results 02/22/18 03:10 02/22/18 03:10 Lab Results 02/21/18 02/21/18 02/21/18 12:00 18:32 19:37 WBC Hgb Hct Plt Count INR APTT 55.7 H 57.8 H Sodium Potassium Chloride Carbon Dioxide BUN Creatinine Glucose Calcium Magnesium 2.3 Total Bilirubin AST ALT Alkaline Phosphatase 02/22/18 02/22/18 02/22/18 03:00 03:10 03:10 WBC 10.1 Hgb 9.5 L D Hct 28.9 L Plt Count 158 INR 1.3 APTT 94.5 H D Sodium 138 Potassium 3.8 Chloride 104 Carbon Dioxide 29 BUN 15 Creatinine 0.42 L Glucose 133 H Calcium 8.2 L Magnesium 2.2 Total Bilirubin 0.5 AST 65 H ALT 63 H Alkaline Phosphatase 40 02/22/18 03:10 WBC Hgb Hct Plt Count INR APTT Sodium Potassium Chloride Carbon Dioxide BUN Creatinine Glucose Calcium Magnesium Total Bilirubin 0.5 AST 67 H ALT 65 H Alkaline Phosphatase 36
[2018-02-20] MEDS: Lacri-Lube 3.5 GM TUBE BOTH EYES SCH ×4 (12:43→23:20)
[2018-02-20 13:28] LABS: ABG Base Excess -6 mEq/L (-2 to 3); ABG HCO3 20 mEq/L (21-27); ABG Oxygen Saturation 100 % (95-98); ABG PCO2 38 mmHg (35-45); ABG PH 7.32 pH Units (7.32-7.45); ABG PO2 186 mmHg (85-104); ABG TCO2 21 mEq/L (20-26); Blood Gas Modality ASSIST CONTROL; Blood Gas Respiration Rate 28; Blood Gas VT 450 cc
[2018-02-20] MEDS ORDERED: *HR* Heparin 10,000 UNIT/10 ML VIAL ONE (14:23)
[2018-02-20] MEDS ORDERED: Nitroglycerin 1,000 MCG/10 ML VIAL IV ONE (14:23)
[2018-02-20] MEDS ORDERED: Heparin 1,000 UNITS/500 mL 500 ML ONE (14:23)
[2018-02-20] MEDS ORDERED: ISOVUE-370 200 ML INFUS..BTL IV ONE ×2 (14:23→14:34)
[2018-02-20] MEDS: Aspirin 81 MG TAB.CHEW PO SCH (14:33)
--- NOTE | 2018-02-20 14:44 | Pre-Sedation Evaluation ---
Pre-sedation evaluation - Pre-sedation checklist Date of procedure: 02/20/18 Procedure: [facility] Recent Vitals: Last Vital Signs Temp 97.2 F L 02/20/18 13:00 Pulse 99 02/20/18 14:30 Resp 28 02/20/18 14:30 BP 102/59 02/20/18 14:30 Pulse Ox 100 02/20/18 14:30 H&P (including ROS) documented in medical record: Yes Previous reaction to sedatives/anesthetics: No Dietary Status: NPO after Midnight Airway Assessment: Patient can open mouth completely, TMJ function normal, Micrognathia (under-bite, receding chin) absent, Neck with adequate range of motion Dentition: No loose teeth or bridges Possible difficult airway: No ASA Classification *see protocol: CLASS IV-Severe systemic disease/constant threat to pt's life (Pt intubated on pressors), [id number] to any of the above to indicate emergent Plan of Care: Pt appropriate candidate for procedure/moderate/conscious sedation , Risks/benefits of procedure/sedation discussed w/ patient/family, If not NPO; Risk of intake outweiged by necessity to perform procedure Cardiac Registry (Cardio Only) - Functional Capacity Functional Capacity: < 4 METS - Clincal Frailty Scale Clinical Frailty Scale: Vulnerable
--- NOTE | 2018-02-20 16:34 | Invasive Diagnostic Lab Proc ---
Name: Heidi Jean Date of Study: 02/20/2018 Date: 1955 Ht: 61.0in Medical Record#: [id number] Age: 62 Wt: 257.94lb Gender: Female BSA: 2.11 Order #: [id number] BMI: 48.7 Physicians Procedure Physician: Rossana Franco MD, [facility] Referring MD: Referring MD: Staff Name Position Time In JodyMiguelina RN Well Blower 03:12 PM Hakan Min RN Well Blower 03:12 PM Shanta Johnson RT (R) Scrub 03:13 PM Indications Indication Non-Stemi Procedures Performed Procedure L HRT ARTERY/VENTRICLE ANGIO Pre-Procedure Checklist Informed consent is complete signed and on chart. H&P is on chart. ID band is on and ID verified with patient. Patient NPO for procedure The procedure was described for the patient and questions were answered. Blood Pressure: 66/50 ECG is on chart. Rhythm: NSR Plan of Care Patient will tolerate the procedure without complications. Adequate level of comfort will be maintained. Hemodynamics will remain stable Patient will recover from procedure without complications. Respiratory function will be maintained. Cardiac rhythm will remain stable. Patient temperature will be maintained. Patient and/or family have verbalized understanding of the procedure. Patient Education Chief Complaint/Reason for Test: Cardiac Cath Developmental Category: Adult (18-64 years) Developmentally Appropriate for Age: Yes Learning Barriers: Sedated Education Needs: Procedure Education Method: Verbal Information Taught: Cardiac Cath Educational Evaluation: Other Note: pt is intubated, but she is able to nod her head to answer questions. Will also educate family to ensure that education section is completed Intravenous Access Time IV Size Location DC'd Fluid/Drip Rate Units RN 03:10 PM Triple Lumen Rt IJ 03:10 PM 18g 1 1/" Patent On Arrival Lt Antecubital 0.9NaCl 25 Hakan Min RN Allergies No Known Allergies NONE KNOWN Vital Signs Time BP (mmHg) HR (bpm) O2 Sat. RR (bpm) LOC 03:18 PM / % 3 = Answers simple questions/follows commands 03:18 PM / % 4 = Oriented but drowsy 03:33 PM / % 3 = Answers simple questions/follows commands 03:13 PM 157 / 140 107 100 % 03:49 PM / % Procedural Medications Time Medication Dose Units Method Given By 03:14 PM Versed 1 mg Intravenous Hakan Min RN 03:19 PM Lidocaine 2% 20 ml Subcutaneous Rossana Franco MD, [facility] 03:20 PM Levophed 8 mcg/min Intravenous 03:20 PM fenanyl 50 mcg/hr Intravenous 03:20 PM Versed 1 mg Intravenous Hakan Min RN 03:21 PM Fentanyl 50 mcg Intravenous Hakan Min RN ASA Classification: CLASS IV- Severe systemic that is constant threat to patient's life Vitor Score Preprocedure Postprocedure Activity 2- Moves 4 extremities sustained head lift Activity 2- Moves 4 extremities sustained head lift Circulation 2- SBP +/= 20 points of pre-anesthetic level Circulation 2- SBP +/= 20 points of pre-anesthetic level Consciousness 2- Awake and alert oriented x 3 Consciousness 2- Awake and alert oriented x 3 O2 Saturation 2- Able to maintain O2 satruation of 92% on room air O2 Saturation 2- Able to maintain O2 satruation of 92% on room air Respiratory 2- Able to deep breathe and cough well Respiratory 2- Able to deep breathe and cough well Total Score 10 Total Score 10 Contrast Agent: Isovue Diagnostic Contrast: 70 ml Total Contrast: 70 ml Fluoro Dose: 7724 mGy Procedure Log Time Note Enter By 02:37 PM CathStat 03:09 PM 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 scoates 03:11 PM Procedure start 15:11 scoates 03:12 PM Vitals capture stopped. 03:12 PM Hakan Min RN Position: Well Blower Time in: 15:12 scoates 03:13 PM Vitals capture started with the following parameters, Patient=Adult, Interval=5 min, Initial Zhiyvfem=655 mmHg, Deflation Rate=5 mmHg, Cuff placed on Right Arm 03:13 PM KT=407 bpm, JHTU=481/140 mmhg, BbF7=108.0 % 03:14 PM Shanta Johnson RT (R) Position: Scrub Time in: 15:13 scoates 03:14 PM pt arrived to lab intubated, pt is able to nod her head and answer questions scoates 03:16 PM Vent settings from ICU are Tidal volume 450, rate 28, 100% FIO2, and Peep is 8 scoates 03:17 PM Patient charges- Angio tray pack, Navilyst 3mm J, Pulse Oximetry and ACIST tubing and transducer scoates 03:17 PM Case Delayed no, inpatient scoates 03:18 PM Hair removed from procedure site in emergency department using clippers. Right groin prepped with Chloraprep by Miguelina Vera RN, then patient was draped. Skin intact. scoates 03:18 PM Time: 15:14 Versed 1 mg Intravenous Given by Hakan Min RN scoates 03:18 PM Time: 15:18 Patient comfortable and pain free: Yes scoates 03:18 PM Time: 15:18LOC: 3 = Answers simple questions/follows commands scoates 03:18 PM Clinical Presentation: Non-STEMI scoates 03:18 PM Pressure channel 1 zeroed. 03:19 PM Time out performed according to hospital policy scoates 03:19 PM Time: 15:19 20 ml Lidocaine 2% to right groin Subcutaneous Given by Rossana Franco MD, [facility] scoates 03:19 PM Vera from respiratory is present along with CRESENCIO Love from ICU scoates 03:20 PM Vitals capture stopped. 03:20 PM Patient arrived at 15:20 with Levophed Intravenous drip @ 8 mcg/min scoates 03:21 PM Pressure channel 1 zeroed. 03:21 PM Patient arrived at 15:20 with fenanyl Intravenous drip @ 50 mcg/hr scoates 03:21 PM Time: 15:21 Fentanyl 50 mcg Intravenous Given by Hakan Min RN scoates 03:24 PM Vitals capture started with the following parameters, Patient=Adult, Interval=5 min, Initial Tgacfcdo=600 mmHg, Deflation Rate=5 mmHg, Cuff placed on Right Arm 03:27 PM Access obtained by percutaneous puncture. 6Fr 10cm Terumo [place] sheath placed in right Femoral artery. [id number] scoates 03:27 PM Vitals capture stopped. 03:27 PM 5Fr FL 4 catheter inserted over the wire DNC scoates 03:27 PM NIBP STAT measurement started. 03:27 PM Pressure channel 1 zeroed. 03:28 PM Recorded Pressure: Ao, CF=473, Condition=Condition 1 (Aorta) Ao 64/49/55 03:28 PM LCA angiography performed in multiple views. scoates 03:30 PM Catheter removed scoates 03:30 PM Vitals capture stopped. 03:30 PM 5Fr FR 4 catheter inserted over the wire DNC scoates 03:30 PM RCA angiography performed in multiple views. scoates 03:30 PM Recorded Pressure: Ao, HR=99, Condition=Condition 1 (Aorta) Ao 66/50/59 03:33 PM Time: 15:18 Patient comfortable and pain free: Yes scoates 03:33 PM Time: 15:18LOC: 4 = Oriented but drowsy scoates 03:34 PM Coronary Dominance: right scoates 03:34 PM Pressure channel 1 zeroed. 03:34 PM Catheter removed scoates 03:34 PM 5Fr Pigtail catheter inserted over the wire DNC scoates 03:34 PM Catheter selectively placed in left ventricle scoates 03:34 PM Recorded Pressure: LV, HR=96, Condition=Condition 1 (Left Ventricle) LV 81/1/13 03:35 PM Recorded Pressure: LV, Ao, HR=97, Condition=Condition 1 (Left Ventricle) LV 79/36/47, (Aorta) Ao 76/39/58 03:35 PM Bolus angiogram of left Ventricle complete: 8 ml/sec for a total of 24 mls scoates 03:37 PM Catheter removed scoates 03:37 PM physician reviewing films scoates 03:39 PM Time: 15:20 Versed 1 mg Intravenous Given by Hakan Min RN scoates 03:40 PM Vitals capture started with the following parameters, Patient=Adult, Interval=5 min, Initial Cjnxjjjw=649 mmHg, Deflation Rate=5 mmHg, Cuff placed on Right Arm 03:43 PM Vitals capture stopped. 03:46 PM Procedure completed at 15:46 02/20/2018 scoates 03:47 PM Sign out completed: Radiation Dose 721 mGy, 7724 cGy/cm2 Fluoro Time: 2 Isovue 370 - 200ml contrast 70 ml given by Rossana Franco MD, [facility]. Complications: NoneCardiac Rehab Consult needed: NoConfirmed administered medications: Yes scoates 03:48 PM Time: 15:33 Patient comfortable and pain free: Yes scoates 03:49 PM Time: 15:33LOC: 3 = Answers simple questions/follows commands scoates 03:51 PM Arterial sheath pulled, Mynx closure device used and was Successful [id number] S/N. scoates 04:00 PM Estimated Blood Loss: minimal scoates 04:00 PM Post ECG NSR scoates 04:[address] Almaraz consutled, he states that he will see the patient scoates 04:00 PM Post Blood Pressure 66/50 scoates 04:00 PM 16:00 Post Pulses Bilateral DP & PT Doppler scoates 04:00 PM Information taught Cardiac Cath scoates 04:00 PM Education needs Procedure, Plan of Care, and Responsibilities of Patient in Care scoates 04:00 PM Education Methods Verbal scoates 04:00 PM Learning barriers :Sedated scoates 04:01 PM Education evaluation pt able nod her head, will also educate family as well scoates 04:01 PM Site status No bleeding/hematoma - Rt Groin as reported by Shanta Johnson RT (R) at 16:01 scoates 04:01 PM Report given to Kate RN Pt taken to ICU Room #6. 16:01 scoates 04:01 PM Plavix, Effient or Brilinta given No scoates 04:01 PM Delay to floor No scoates 04:01 PM Patient out of room: 16:01 scoates 04:02 PM Family placed in consult room. scoates 04:02 PM Complications: None scoates 04:02 PM Fluoro Time: 2.0 scoates 04:02 PM Isovue 370 - 200ml contrast 70 ml given by . scoates 04:02 PM Radiation Dose 721 mGy scoates 04:05 PM Isovue 370 - 200ml,1 Bottle(s) used. scoates 04:06 PM Lesion found in Proximal LMCA. Pre Stenosis: 60 Pre THOMAS Flow: scoates 04:07 PM Lesion found in Proximal RCA. Pre Stenosis: 99 Pre THOMAS Flow: scoates 04:07 PM Lesion found in Mid RCA. Pre Stenosis: 40 Pre THOMAS Flow: scoates 04:07 PM Lesion found in Distal RCA. Pre Stenosis: 30 Pre THOMAS Flow: scoates 04:07 PM Coronary Dominance: right scoates 04:08 PM Lesion found in Proximal LAD. Pre Stenosis: 90 Pre THOMAS Flow: scoates 04:08 PM Lesion found in Mid LAD. Pre Stenosis: 40 Pre THOMAS Flow: scoates 04:08 PM Lesion found in Distal LAD. Pre Stenosis: 30 Pre THOMAS Flow: scoates 04:09 PM Lesion found in 1st Diagonal. Pre Stenosis: 50 Pre THOMAS Flow: scoates 04:09 PM Lesion found in Proximal Circumflex. Pre Stenosis: 100 Pre THOMAS Flow: scoates 04:09 PM Lesion found in Mid Circumflex. Pre Stenosis: 100 Pre THOMAS Flow: scoates 04:09 PM Lesion found in 1st Marginal. Pre Stenosis: 100 Pre THOMAS Flow: scoates 04:12 PM Left Main Coronary Artery with 60% stenosis scoates 04:13 PM Proximal Left Anterior Descending Coronary Artery with 90% stenosis. If graft is supplying this territory, 0 % stenosis. scoates 04:13 PM Mid/Distal Left Anterior Descending Coronary Artery and diagonal branches with 50% stenosis. If graft is supplying this area, 0 % stenosis scoates 04:13 PM Circumflex, Obtuse Marginal, Left Posterior Descending, and Left Posterolateral Coronary Arteries with 100 % stenosis. If graft is supplying this area, 0 % stenosis scoates 04:13 PM Right Coronary, Right Posterior Descending Arteries with Right Posterolateral and Acute Marginal branches with 99 % stenosis. If graft is supplying this area, 0 % stenosis scoates Complications Complication None None Hemodynamics Pressures Site Systolic/A Wave Diastolic/V Wave Mean AO 64 49 55 AO 66 50 59 LV 81 1 13 LV 79 36 47 AO 76 39 58 Post Procedure Information Blood Pressure: 66/50 mmHg Rhythm: NSR Post procedural instructions were given Closure Device Time Device Success/Fail 02/20/2018 4:03:00 PM MynxGrip Successful Site Checks Time Location Status Staff Sheath In? Note 04:01 PM Rt Groin No bleeding/hematoma Shanta Johnson RT (R) Pulses Time Site Pre-Procedure Post-Procedure Note 02/20/2018 3:10:00 PM Bilateral DP & PT 1+ 4:00:00 PM Bilateral DP & PT Doppler Updated by Miguelina Baldwin RN on 02/20/2018 4:24:51 PM electronically signed on 02/20/2018 4:25:32 PM with status of Final
[2018-02-20] MEDS ORDERED: Doxycycline 200 MG in 0.9 % Sodium Chloride 250 ML IVPB SCH (18:00)
[2018-02-20] MEDS ORDERED: Ondansetron 4 MG/2 ML VIAL IVP ONE (18:15)
[2018-02-20] MEDS: Famotidine 20 MG/2 ML VIAL IVP SCH (18:21)
--- NOTE | 2018-02-20 19:00 | Cardiothoracic Consult Note ---
Date of Encounter: 02/20/18 Time of Encounter: 18:55 Assessment and Plan (1) NSTEMI (non-ST elevated myocardial infarction) Current Visit: Yes Status: Acute The assessment and plan as outlined above was discussed with the patient and/or family members who expressed understanding and agreement. All questions were answered. The patient could eventually become a candidate for coronary artery bypass grafting. This would include a left internal mammary artery graft to her LAD and a graft to her right coronary artery. Her diagonal branch is only 50% blocked. Her circumflex coronary artery may or may not be graftable. Prior to surgery, she should recuperate from her myocardial infarction. She should be extubated. Her pulmonary edema on chest x-ray should clear and she should be off pressors. Sepsis should be ruled out and her white blood cell count should be decreasing. A repeat echocardiogram to rule out RV infarction may also be indicated. We will continue to follow and schedule surgery at the appropriate time. - History of Present Illness History of present illness: Ms. Jean is a 62 year old female The patient is a 62-year-old female who presented with chest pain and shortness of breath. She was intubated in the ambulance for hypoxia. She was found to have a myocardial infarction. Troponin has gone up to 53. Echocardiogram revealed ejection fraction of 25-30%. No significant valvular disease. There was mildly reduced right ventricular function. Cardiac catheterization revealed ejection fraction of 40%. She has a 60% left main lesion. The LAD has a 90% proximal lesion and does appear to be a graftable vessel. The circumflex coronary artery is 100% blocked. It does fill by left to left collaterals. It may or may not be graftable. The right coronary artery has a 99% proximal lesion. CT scan of the brain revealed no acute changes. CT scan of the chest revealed pulmonary edema, but no pulmonary embolism. Chest x-ray revealed pulmonary edema. White blood cell count was elevated at 17.2 and she was started on antibiotics. Past medical history is notable for hypertension, hyperlipidemia and diabetes on oral agents. She also carries a diagnosis of mild hepatic dysfunction with mild elevation of her liver function tests. Social history. She lives in [place] with her . She quit smoking 30 years ago. Does not drink alcohol. Family history is not obtainable. Review of systems is notable for no stroke, TIA history or history of claudication. No history of saphenous vein varicosities or strippings. Past Med Surg Social Fam HX - Past Medical History Medical history: diabetes, hyperlipidemia, hypertension Additional medical history: Lupus & irritable bowel syndrome Psychiatric history: no psych history - Past Surgical History Additional surgical history: hysterectomy galbladder - Social History Smoking Status: Former smoker Smokeless Tobacco Status: No Alcohol use: none Drug use: none - Family History Mother Adopted: [place]: Lia Bangura Living Status: Age at : 82 Cause of : Alzheimers Hx Family Cardiac Disorders: No Hx Family Respiratory Disorders: No Hx Family Cancer: Yes Hx Family GI Disorders: Yes Hx Family Genitourinary Disorders: No Hx Family Endocrine Disorder: Yes Hx Family Musculoskeletal Disorders: Yes Hx Family Neuromuscular Disorders: No Hx Family Neurologic Disorders: No Hx Family HEENT Disorders: No Hx Family Autoimmune Disorders: No Hx Family Reproductive Disorders: No Hx Family Psychosocial Disorders: No Hx Family Medical Disorders: No Father Adopted: [place]: Chavo Living Status: Age at : 84 Cause of : CO, Respiratory failure Hx Family Cardiac Disorders: Yes Hx Family Respiratory Disorders: Yes Hx Family Cancer: No Hx Family GI Disorders: No Hx Family Genitourinary Disorders: No Hx Family Endocrine Disorder: Yes Hx Family Musculoskeletal Disorders: No Hx Family Neuromuscular Disorders: No Hx Family Neurologic Disorders: No Hx Family HEENT Disorders: No Hx Family Autoimmune Disorders: No Hx Family Reproductive Disorders: No Hx Family Psychosocial Disorders: No Hx Family Medical Disorders: No Medications and Allergies Aspirin [Adult Aspirin Regimen] 81 mg PO DAILY 02/20/18 [History] Escitalopram [Lexapro] 10 mg PO DAILY 02/20/18 [History] Lisinopril/Hydrochlorothiazide [Zestoretic 20-12.5 mg Tablet] 1 tab PO DAILY 09/09 [History] Timolol Maleate 0.25% [Timolol Maleate 0.25%] 1 drop LEFT EYE BID 02/20/18 [ History] amLODIPine [Norvasc] 5 mg PO DAILY 02/20/18 [History] metFORMIN [Glucophage] 500 mg PO 0800 02/20/18 [History] 3 Allergy/AdvReac Type Severity Reaction Status Date / Time No Known Allergies Allergy Verified 02/20/18 10:08 All Systems Review: The remainder of the systems were reviewed and are negative Physical Examination Vital Signs, Last 4 Hours Temp Pulse Resp BP Pulse Ox 02/20/18 18:00 97 32 106/62 99 02/20/18 17:35 93 28 103/49 96 02/20/18 17:12 28 100/46 94 02/20/18 17:00 93 28 100/46 94 02/20/18 16:53 98.7 F 02/20/18 16:45 96 29 78/49 02/20/18 16:30 106 28 100/84 95 02/20/18 16:21 101 28 86/58 94 02/20/18 16:16 98.7 F 102 28 70/37 93 02/20/18 16:09 29 86/58 96 The patient is intubated. She is sedated on a fentanyl drip and is also on a norepinephrine drip. Pupils are equal, round and reactive to light and accommodation. She is missing some teeth. Neck is supple. Trachea in the midline. No thyromegaly or carotid bruits. Lungs have scattered rales. Clear to percussion. Heart is in a regular rate and rhythm. No murmurs, gallops or rubs. Abdomen is benign. She is status post cholecystectomy and hysterectomy. No tenderness, rebound or guarding. Extremities without edema. No saphenous vein varicosities or strippings. 1+ pulses. Neurological exam is difficult to assess, but she does not respond appropriately to questions. Results 02/20/18 07:17 02/20/18 03:37 Lab Results, Last 24 hours 02/20/18 02/20/18 02/20/18 07:17 07:17 07:17 WBC 17.2 H Hgb 14.4 Hct 45.5 H Plt Count 316 INR 1.2 APTT 178.7 H* D Magnesium 1.9 Troponin I 8.85 H* 02/20/18 02/20/18 11:06 14:48 WBC Hgb Hct Plt Count INR APTT Magnesium Troponin I 35.51 H* 52.76 H* Consult Discharge Plan - Plan Referrals: Nicola Vinson DO [Primary Care Provider] -
[2018-02-20] MEDS: Chlorhexidine Rinse 15 ML MOUTHWASH MM SCH (19:58)
--- NOTE | 2018-02-20 22:21 | Procedure Note ---
Date of procedure: 02/20/18 Pre-op diagnosis: NSTEMI with Cardiogenic Shock Post-op diagnosis: same Procedure: Under strict aseptic precuation with ultrasound guidance left femoral artery was chosen to cannulated as before my arrival both of Radial artery was cannulated by Respiratory therapist it was unsuccessful . With Ultrasound guidance the left femoral artery was cannulated with confirmation of pulsaltile blood flow return guide wire was guided with out any difficulty . The Catheter which was 12 cms length was cannulated into the femoral artery connecting to the transducer showed adequate arterial wave forms , the cannula was sutured in place. Anesthesia: IV sedation Surgeon: Gunnar Lopez Was there an executive personal assistant present: Yes Student Teacher: Neeraj Cifuentes Estimated blood loss (cc): 1 Specimen: none Pathology: none sent Condition: critical Disposition: ICU
[2018-02-20 23:45] LABS: ABG Base Excess -2 mEq/L (-2 to 3); ABG HCO3 22 mEq/L (21-27); ABG Oxygen Saturation 99 % (95-98); ABG PCO2 33 mmHg (35-45); ABG PH 7.43 pH Units (7.32-7.45); ABG PO2 148 mmHg (85-104); ABG TCO2 23 mEq/L (20-26); Blood Gas Modality ASSIST CONTROL; Blood Gas Respiration Rate 28; Blood Gas VT 45 cc
[2018-02-21] MEDS: Insulin LISPRO 300 UNITS/3 ML VIAL SQ SCH ×4 (00:07→16:50)
[2018-02-21] MEDS: Famotidine 20 MG/2 ML VIAL IVP SCH ×2 (04:35→17:52)
[2018-02-21] MEDS: Piperacillin/Tazobactam 3.375 GM in 0.9 % Sodium Chloride Mini Bag 100 ML IVPB SCH ×2 (04:36→11:02)
[2018-02-21] MEDS: Heparin 25,000 UNIT/500 ML D5W 25,000 UNIT/500 ML BAG IVC SCH ×2 (04:36→16:00)
[2018-02-21] MEDS: Lacri-Lube 3.5 GM TUBE BOTH EYES SCH ×5 (04:36→22:07)
[2018-02-21 05:02] LABS: ABG Base Excess 1 mEq/L (-2 to 3); ABG HCO3 26 mEq/L (21-27); ABG Oxygen Saturation 99 % (95-98); ABG PCO2 41 mmHg (35-45); ABG PH 7.41 pH Units (7.32-7.45); ABG PO2 117 mmHg (85-104); ABG TCO2 27 mEq/L (20-26); Blood Gas Modality ASSIST CONTROL; Blood Gas Respiration Rate 28; Blood Gas VT 380 cc
[2018-02-21 05:32] LABS: INR 1.3; Prothrombin Time 14.7 Seconds (9.4-12.1)
[2018-02-21 05:36] LABS: Alanine Aminotransferase 93 Units/L (7-52); Albumin 2.9 g/dL (3.5-5.7); Albumin/Globulin Ratio 1.1 (1.1-2.2); Alkaline Phosphatase 43 Units/L (34-104); Aspartate Amino Transferase 130 Units/L (13-39); BUN/Creatinine Ratio 30 (6-26); Bilirubin,Total 0.5 mg/dL (0.3-1.0); Blood Urea Nitrogen 17 mg/dL (8-23); Calcium 7.7 mg/dL (8.6-10.3); Carbon Dioxide 25 mEq/L (23-29); Chloride 105 mEq/L (98-107); Globulin 2.7 g/dL (2.4-3.5); Glucose 165 mg/dL (70-105); Magnesium 1.8 mg/dL (1.6-2.6); Osmolality,Calculated 287 (280-300); Phosphorous 2.4 mg/dL (2.7-4.5); Potassium 3.8 mEq/L (3.5-5.1); Sodium 136 mEq/L (136-145); Total Protein 5.6 g/dL (6.4-8.9); eGFR For African Americans > 60 (> 60); eGFR For Non-African Americans > 60 (> 60)
[2018-02-21 05:36] LABS: Activated Partial Thrombo Time 58.3 Seconds (26.0-36.0)
[2018-02-21 05:55] LABS: Basophils % 0.1 %; Hematocrit 33.4 % (35.3-44.9); Immature Granulocytes % 0.3 % (0-4); Lymphocytes # 1.3 K/mcL (0.6-4.6); Lymphocytes % 10.7 %; Mean Corpuscular HGB Conc 34.1 g/dL (31.6-35.5); Mean Corpuscular Hemoglobin 30.6 pg (28.0-33.3); Mean Corpuscular Volume 89.8 fL (83.0-100.0); Mean Platelet Volume 9.6 fL (9.4-12.4); Monocytes # 0.5 K/mcL (0.0-1.3); Monocytes % 3.9 %; Neutrophils # 10.3 K/mcL (1.6-8.9); Platelet Count 161 K/mcL (140-400); Red Blood Count 3.72 M/mcL (3.82-4.97); Red Cell Distribution Width 14.6 % (11.5-14.5)
[2018-02-21 06:02] LABS: Hemoglobin 11.4 g/dL (11.5-15.4)
--- NOTE | 2018-02-21 07:35 | Pulmonology Progress Note ---
<IsatuAdam W - Last Filed: 02/21/18 09:11> Date of Encounter: 02/21/18 Objective PUL Vital signs: Last Vital Signs Temp 99.2 F 02/21/18 07:42 Pulse 100 02/21/18 08:00 Resp 28 02/21/18 08:00 BP 118/66 02/21/18 08:00 Pulse Ox 99 02/21/18 08:00 Ventilator Settings Ventilator Settings: Ventilator Settings, Last 8 Hours Ventilator Tidal Volume 380 Setting Ventilator Tidal Volume 380 Setting Ventilator Tidal Volume 380 Setting Ventilator Tidal Volume 380 Setting Ventilator Tidal Volume 380 Setting Ventilator Tidal Volume 380 Setting Ventilator Tidal Volume 380 Setting Ventilator Tidal Volume 380 Setting Ventilator Tidal Volume 380 Setting Ventilator Tidal Volume 380 Setting Ventilator Respiratory Rate 28 Setting Ventilator Respiratory Rate 28 Setting Ventilator Respiratory Rate 28 Setting Ventilator Respiratory Rate 28 Setting Ventilator Respiratory Rate 28 Setting Ventilator Respiratory Rate 28 Setting Ventilator Respiratory Rate 28 Setting Ventilator Respiratory Rate 28 Setting Ventilator Respiratory Rate 28 Setting Ventilator Respiratory Rate 28 Setting Actual Respiratory Rate 28 Actual Respiratory Rate 28 Actual Respiratory Rate 28 Actual Respiratory Rate 28 Actual Respiratory Rate 28 Positive End Expiratory 5 Pressure Positive End Expiratory 5 Pressure Positive End Expiratory 8 Pressure Positive End Expiratory 8 Pressure Positive End Expiratory 8 Pressure Positive End Expiratory 8 Pressure Positive End Expiratory 8 Pressure Positive End Expiratory 8 Pressure Positive End Expiratory 8 Pressure Positive End Expiratory 8 Pressure Positive End Expiratory 8 Pressure Peak Inspiratory Airway 29 Pressure Peak Inspiratory Airway 29 Pressure Peak Inspiratory Airway 33 Pressure Peak Inspiratory Airway 33 Pressure Results - Laboratory Findings CBC and BMP: 02/21/18 05:47 02/21/18 04:58 ABG ABG pH 7.41 pH Units (7.32-7.45) 02/21/18 04:58 ABG pCO2 41 mmHg (35-45) 02/21/18 04:58 ABG pO2 117 mmHg (85-104) H 02/21/18 04:58 ABG O2 Saturation 99 % (95-98) H 02/21/18 04:58 PT/INR, D-dimer PT 14.7 Seconds (9.4-12.1) H 02/21/18 04:00 Abnormal lab findings: Abnormal lab results WBC 12.2 K/mcL (4.3-11.1) H 02/21/18 05:47 RBC 3.72 M/mcL (3.82-4.97) L 02/21/18 05:47 Hgb 11.4 g/dL (11.5-15.4) L D 02/21/18 05:47 Hct 33.4 % (35.3-44.9) L 02/21/18 05:47 RDW 14.6 % (11.5-14.5) H 02/21/18 05:47 Neutrophils # 10.3 K/mcL (1.6-8.9) H 02/21/18 05:47 PT 14.7 Seconds (9.4-12.1) H 02/21/18 04:00 APTT 58.3 Seconds (26.0-36.0) H D 02/21/18 04:00 Heparin Anti-Xa, Unfract 1.06 IU/mL (0.30-0.70) H* 02/20/18 07:17 ABG pO2 117 mmHg (85-104) H 02/21/18 04:58 ABG Total CO2 27 mEq/L (20-26) H 02/21/18 04:58 ABG O2 Saturation 99 % (95-98) H 02/21/18 04:58 Creatinine 0.56 mg/dL (0.60-1.20) L 02/21/18 04:58 BUN/Creatinine Ratio 30 (6-26) H 02/21/18 04:58 Glucose 165 mg/dL (70-105) H 02/21/18 04:58 POC Glucose 190 mg/dL (70-99) H 02/21/18 00:04 Calcium 7.7 mg/dL (8.6-10.3) L 02/21/18 04:58 Phosphorus 2.4 mg/dL (2.7-4.5) L 02/21/18 04:58 AST 130 Units/L (13-39) H 02/21/18 04:58 ALT 93 Units/L (7-52) H 02/21/18 04:58 Troponin I 33.12 ng/mL (< 0.04) H* 02/20/18 18:54 Serum Total Protein 5.6 g/dL (6.4-8.9) L 02/21/18 04:58 Albumin 2.9 g/dL (3.5-5.7) L 02/21/18 04:58 Ur Specific [place] 1.026 (1.010-1.025) H 02/20/18 11:45 - Microbiology Findings Microbiology Findings: Microbiology, Last 48 Hours 02/20/18 14:35 Legionella Antigen - Final Urine,[place] Streptococcus pneumoniae Antigen (M - Final 02/20/18 10:30 Sputum Culture - Preliminary Sputum 02/20/18 10:21 Blood Culture - Preliminary Central Venous Catheter Culture is incubating and being continuously monitored for growth. Final report to follow. - Clinical Findings Intake & Output: Intake & Output 02/20/18 02/21/18 02/21/18 23:59 07:59 15:59 Intake Total 794 / 794 387 / 387 Output Total 1050 / 1050 750 / 750 Balance -256 / -256 -363 / -363 Weight 120.9 kg Consult Discharge Plan - Plan Referrals: Nicola Vinson DO [Primary Care Provider] - - Attending Attestation I examined this patient and my medical decision-making was reviewed with the Resident Physician. I agree with the documented findings, disposition and treatment plan as described except to the extent set forth below. We independently had [id number] contact with the patient Patient seen and examined at bedside Labs, radiology, chart personally reviewed. Management was reviewed during multidisciplinary critical care rounds. 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 Otherwise acceptable oxygenation and ventilation on minimal vent support Cards:NSTEMI with cardiogenic shock. Shock has resolved overnight. She will need coronary artery bypass grafting for multivessel disease. Cardiothoracic surgery and cardiology managing these aspects GI: GI prophylaxis given Nutrition: Nothing by mouth for now pending vent liberation Renal: UOP Monitored, Cont to Trend sCr and monitor Electrolytes. ID: Doubt pneumonia stop antibiotics Heme/Onc: She remains on heparin infusion for ACS protocol she is also receiving antiplatelet therapy in the form of aspirin. Continue to monitor H&H Endo: Glucose Monitored Integ/MSK: Skin Care per routine ICU Nursing Protocol to prevent ulcers. Lines: All lines examined without evidence of infection : Dispo: Remain in ICU today CODE: Full <William Harden - Last Filed: 02/21/18 11:13> Date of Encounter: 02/21/18 Time of Encounter: 07:35 Assessment and Plan (1) NSTEMI (non-ST elevated myocardial infarction) Current Visit: Yes Status: Acute Patient initially presented here with chest pain in the emergency Department her initial troponin was 0.8 for cancer to be an and STEMI. EKG had no acute ST changes. Troponin slightly increased where was highest yesterday evening at 52.76. Since then has decreased to 33.12. Patient is still having an and STEMI. They did do left heart catheterization yesterday which showed an ejection fraction of 40% 60% left main lesion, LAD 90% proximal lesion, circumflex coronary artery is 100% blocked and right coronary artery has 99% proximal lesion. Due to the level blockage cardiothoracic surgery was consult did he said patient is a candidate for coronary artery bypass grafting. They will consider doing a later in the week. Plan is to extubate patient is sitting get better history and have patient stabilizes before this began the surgery later this week. Patient still on heparin. She is been weaned off pressors. We will continue to await cardiothoracic surgeries recommendations (2) Acute respiratory failure Current Visit: Yes Status: Acute Patient initially had severe VQ mismatch due to pulmonary edema but underlying pneumonia cannot be ruled out. Patient was started on Zosyn, vancomycin, doxycycline for possible aspiration pneumonia. CT of the chest was negative for pulmonary embolism. Blood cultures, sputum cultures, strep pneumonia, Legionella were ordered and are still pending. MRSA swab still pending. Patient did have respiratory acidosis initially said increase the PEEP. We are continuing to monitor ABGs. Patient was then changed to low lung volume preventive ventilator settings. Vent bundle ordered. Plan for extubation today as patient is able to follow commands. Patient seems to be doing well and is no longer in respiratory failure at this time Qualifiers: Respiratory failure complication: hypoxia and hypercapnia Qualified Code(s) : J96.01 - Acute respiratory failure with hypoxia; J96.02 - Acute respiratory failure with hypercapnia (3) Elevated troponin Current Visit: Yes Status: Acute Patient did have continually elevating troponins all only up to the 50s. Since then have decreased to 33. EKG was repeated today. EKG impression: EKG done 02/21/2018@0 828 review myself and the attending shows sinus tachycardia at a rate of 109, HI interval 164, QRS 90, QTC 374 with a leftward axis. There is no acute ST changes no acute T-wave changes no other signs of ischemia. No signs of heart strain, hypertrophy, heart block. No WPW/ Brugada syndrome. This most likely secondary to patient having an STEMI. Cardiology and cardiothoracic surgery following the patient we appreciate their recommendations. Patient was on dopamine gtt. from ER per cards recommendation patient was started on Levaquin fed patient was titrated down is no longer on any pressors at this time and keeping a map of greater than 60. Avoiding IV fluids at this time due to flash pulmonary edema. Echocardiogram done showing an EF of 25-30% with no obvious wall motion abnormalities but was limited due to tachycardia. We will repeat echocardiogram later in the week. Continue heparin gtt. and full dose aspirin daily. We will speak with cardiology about possibly adding on beta kaleb due to patient being tachycardic and normotensive at this time. We will await their recommendations (4) Septic shock Current Visit: Yes Status: Resolved Patient did meet sepsis criteria but most likely is due to cardiogenic shock not sepsis also causing patient's pulmonary edema. Viral panel came back all negative as well as sputum cultures. Due to this we will stop all antibiotics including vancomycin, Zosyn, doxycycline. We will continue to monitor White blood cell count see if there is any changes. Septic shock has resolved patient is no longer needing pressor support. (5) Heart failure, systolic, with acute decompensation Current Visit: Yes Status: Acute Patient does have acute decompensated systolic CHF with global dysfunction. Most likely secondary to an STEMI. IV Lasix was given will hold beta kaleb and ARI inhibitor due to patient's hypotension. Cardiology is following appreciate their recommendations (6) Elevated liver enzymes Current Visit: Yes Status: Acute Patient did have elevated liver enzymes were initial AST was 71, a LT 119. Repeat today showed AST of 130 and ALT of 93. We will order a right upper quadrant ultrasound as well as hepatitis panel. Depending on these results will consider GI consultation. We will also continue to trend the AST and ALT (7) Hypophosphatemia Current Visit: Yes Status: Acute Replacing with electrolyte protocol (8) Hypocalcemia Current Visit: Yes Status: Acute Replacing with electrolyte protocol (9) Severe obesity (BMI >= 40) Current Visit: Yes Status: Acute Patient does have severe obesity with a BMI of 50.4. The severe obesity does make Nsemi-and worsening inspiratory status more likely. Patient does have history diabetes. We will consult the patient on diet changed to help with severe obesity. (10) Diabetes mellitus type 2 in obese Current Visit: Yes Status: Acute Patient currently on insulin sliding scale. Changed it to every 4 hours while patient is no longer eating at this time. (11) DVT prophylaxis Current Visit: Yes Status: Acute Patient currently on heparin due to NSTEMI Subjective Principal diagnosis: Acute myocardial infarction Interval history: Patient was seen and evaluated by myself. Labs and imaging were reviewed. Patient did well overnight. She is still intubated and sedation has been decreased only using fentanyl patient is able to follow commands and able to write on the board to see what her concerns her. Patient is still having chest pain at this time but is mild compared to when she initially presented to the emergency department. Plan for extubation today. Objective PUL Vital signs: Last Vital Signs Temp 98.9 F 02/21/18 04:41 Pulse 93 02/21/18 06:00 Resp 28 02/21/18 07:23 BP 110/61 02/21/18 06:00 Pulse Ox 99 02/21/18 07:23 General appearance: no acute distress Eyes: nonicteric Neck: supple Effort: normal Auscultation: bilateral: rales Cardiovascular: regular rate and rhythm Gastrointestinal: normoactive bowel sounds, non-distended Integumentary: normal Extremities: no cyanosis, no edema, no clubbing Musculoskeletal: no deformities, ROM normal normal mental status, non-focal exam, pupils equal and round, motor strength normal and symmetric Ventilator Settings Ventilator Settings: Ventilator Settings, Last 8 Hours Ventilator Tidal Volume 380 Setting Ventilator Tidal Volume 380 Setting Ventilator Tidal Volume 380 Setting Ventilator Tidal Volume 380 Setting Ventilator Tidal Volume 380 Setting Ventilator Tidal Volume 380 Setting Ventilator Tidal Volume 380 Setting Ventilator Tidal Volume 380 Setting Ventilator Tidal Volume 380 Setting Ventilator Tidal Volume 380 Setting Ventilator Tidal Volume 380 Setting Ventilator Tidal Volume 380 Setting Ventilator Tidal Volume 450 Setting Ventilator Respiratory Rate 28 Setting Ventilator Respiratory Rate 28 Setting Ventilator Respiratory Rate 28 Setting Ventilator Respiratory Rate 28 Setting Ventilator Respiratory Rate 28 Setting Ventilator Respiratory Rate 28 Setting Ventilator Respiratory Rate 28 Setting Ventilator Respiratory Rate 28 Setting Ventilator Respiratory Rate 28 Setting Ventilator Respiratory Rate 28 Setting Ventilator Respiratory Rate 28 Setting Ventilator Respiratory Rate 28 Setting Ventilator Respiratory Rate 28 Setting Actual Respiratory Rate 28 Actual Respiratory Rate 28 Actual Respiratory Rate 28 Actual Respiratory Rate 28 Actual Respiratory Rate 28 Positive End Expiratory 5 Pressure Positive End Expiratory 8 Pressure Positive End Expiratory 8 Pressure Positive End Expiratory 8 Pressure Positive End Expiratory 8 Pressure Positive End Expiratory 8 Pressure Positive End Expiratory 8 Pressure Positive End Expiratory 8 Pressure Positive End Expiratory 8 Pressure Positive End Expiratory 8 Pressure Positive End Expiratory 8 Pressure Positive End Expiratory 8 Pressure Positive End Expiratory 8 Pressure Positive End Expiratory 8 Pressure Peak Inspiratory Airway 29 Pressure Peak Inspiratory Airway 29 Pressure Peak Inspiratory Airway 33 Pressure Peak Inspiratory Airway 33 Pressure Peak Inspiratory Airway 35 Pressure Results - Laboratory Findings CBC and BMP: 02/21/18 05:47 02/21/18 04:58 ABG ABG pH 7.41 pH Units (7.32-7.45) 02/21/18 04:58 ABG pCO2 41 mmHg (35-45) 02/21/18 04:58 ABG pO2 117 mmHg (85-104) H 02/21/18 04:58 ABG O2 Saturation 99 % (95-98) H 02/21/18 04:58 PT/INR, D-dimer PT 14.7 Seconds (9.4-12.1) H 02/21/18 04:00 Abnormal lab findings: Abnormal lab results WBC 12.2 K/mcL (4.3-11.1) H 02/21/18 05:47 RBC 3.72 M/mcL (3.82-4.97) L 02/21/18 05:47 Hgb 11.4 g/dL (11.5-15.4) L D 02/21/18 05:47 Hct 33.4 % (35.3-44.9) L 02/21/18 05:47 RDW 14.6 % (11.5-14.5) H 02/21/18 05:47 Neutrophils # 10.3 K/mcL (1.6-8.9) H 02/21/18 05:47 PT 14.7 Seconds (9.4-12.1) H 02/21/18 04:00 APTT 58.3 Seconds (26.0-36.0) H D 02/21/18 04:00 Heparin Anti-Xa, Unfract 1.06 IU/mL (0.30-0.70) H* 02/20/18 07:17 ABG pO2 117 mmHg (85-104) H 02/21/18 04:58 ABG Total CO2 27 mEq/L (20-26) H 02/21/18 04:58 ABG O2 Saturation 99 % (95-98) H 02/21/18 04:58 Creatinine 0.56 mg/dL (0.60-1.20) L 02/21/18 04:58 BUN/Creatinine Ratio 30 (6-26) H 02/21/18 04:58 Glucose 165 mg/dL (70-105) H 02/21/18 04:58 POC Glucose 190 mg/dL (70-99) H 02/21/18 00:04 Calcium 7.7 mg/dL (8.6-10.3) L 02/21/18 04:58 Phosphorus 2.4 mg/dL (2.7-4.5) L 02/21/18 04:58 AST 130 Units/L (13-39) H 02/21/18 04:58 ALT 93 Units/L (7-52) H 02/21/18 04:58 Troponin I 33.12 ng/mL (< 0.04) H* 02/20/18 18:54 Serum Total Protein 5.6 g/dL (6.4-8.9) L 02/21/18 04:58 Albumin 2.9 g/dL (3.5-5.7) L 02/21/18 04:58 Ur Specific [place] 1.026 (1.010-1.025) H 02/20/18 11:45 - Microbiology Findings Microbiology Findings: Microbiology, Last 48 Hours 02/20/18 14:35 Legionella Antigen - Final Urine,[place] Streptococcus pneumoniae Antigen (M - Final 02/20/18 10:30 Sputum Culture - Preliminary Sputum 02/20/18 10:21 Blood Culture - Preliminary Central Venous Catheter Culture is incubating and being continuously monitored for growth. Final report to follow. - Diagnostic Findings Chest x-ray: report reviewed, image reviewed - Clinical Findings Intake & Output: Intake & Output 02/20/18 02/20/18 02/21/18 15:59 23:59 07:59 Intake Total 653 / 653 794 / 794 387 / 387 Output Total 1020 / 1020 1050 / 1050 500 / 500 Balance -367 / -367 -256 / -256 -113 / -113 Weight 117.2 kg 120.9 kg
--- NOTE | 2018-02-21 07:43 | Cardiothoracic Progress Note ---
Date of Encounter: 02/21/18 Time of Encounter: 07:40 - Assessment and plan (1) NSTEMI (non-ST elevated myocardial infarction) Current Visit: Yes Status: Acute The patient remained hemodynamic stable overnight. Although she remains intubated, she is fully awake and alert and responding appropriately to questions. 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 She no longer requires vasopressor support and is maintaining an adequate blood pressure. The patient's liver enzymes are elevated and she should be evaluated by GI. The echocardiogram should be repeated later this week prior to possible CABG. The assessment and plan as outlined above was discussed with the patient and/or family members who expressed understanding and agreement. All questions were answered. - Subjective Interval history: The patient remained hemodynamic stable overnight. She is currently intubated; however, is awake and alert. She answers questions appropriately by nodding or shaking her head. She is off her Levophed drip. Vital Signs, Last 4 Hours Temp Pulse Resp BP Pulse Ox 02/21/18 07:23 28 99 02/21/18 06:29 28 98 02/21/18 06:00 93 28 110/61 98 02/21/18 05:00 97 28 105/78 99 02/21/18 04:52 95 02/21/18 04:41 98.9 F 02/21/18 04:37 28 98 02/21/18 04:00 98 28 107/61 95 [place]gyen Flow Rate Oxygen Flow Rate (LPM) 15 Weight 02/19/18 02/20/18 02/21/18 23:59 23:59 23:59 Weight 117.2 kg 120.9 kg - Physical Examination General: No Apparent Distress Neck: No JVD, Normal carotid pulses Cardiac: Reg Rate and Rhythm, Normal S1 and S2, No Murmur Lungs: Normal Breath Sounds, No Wheeze, Rales, Rhonchi Neuro: Alert and responsive, No focal deficits noted Vascular: Normal capillary refill Musculoskeletal: No Chest Wall Tenderness Extremities: No Clubbing, No Cyanosis, No Edema - Labs 02/21/18 05:47 02/21/18 04:58 Lab Results, Last 24 hours 02/20/18 02/20/18 02/20/18 07:17 07:17 11:06 WBC Hgb Hct Plt Count INR 1.2 APTT 178.7 H* D Sodium Potassium Chloride Carbon Dioxide BUN Creatinine Glucose Calcium Magnesium 1.9 Total Bilirubin AST ALT Alkaline Phosphatase Troponin I 8.85 H* 35.51 H* 02/20/18 02/20/18 02/20/18 14:48 18:54 22:00 WBC Hgb Hct Plt Count INR APTT 28.9 D Sodium Potassium Chloride Carbon Dioxide BUN Creatinine Glucose Calcium Magnesium Total Bilirubin AST ALT Alkaline Phosphatase Troponin I 52.76 H* 33.12 H* 02/21/18 02/21/18 02/21/18 04:00 04:58 05:47 WBC 12.2 H Hgb 11.4 L D Hct 33.4 L Plt Count 161 INR 1.3 APTT 58.3 H D Sodium 136 Potassium 3.8 Chloride 105 Carbon Dioxide 25 BUN 17 Creatinine 0.56 L Glucose 165 H Calcium 7.7 L Magnesium 1.8 Total Bilirubin 0.5 AST 130 H ALT 93 H Alkaline Phosphatase 43 Troponin I Consult Discharge Plan - Plan Referrals: Nicola Vinson DO [Primary Care Provider] -
[2018-02-21] MEDS: Aspirin 81 MG TAB.CHEW PO SCH (07:55)
[2018-02-21] MEDS: Chlorhexidine Rinse 15 ML MOUTHWASH MM SCH ×2 (07:56→22:07)
--- NOTE | 2018-02-21 10:31 | Cardiology Progress Note ---
Date of Encounter: 02/21/18 Time of Encounter: 08:30 Assessment and Plan (1) NSTEMI (non-ST elevated myocardial infarction) Current Visit: Yes Status: Acute Nstemi with troponin elevation up to 53. S/p C that showed severe three vessel CAD. CT surgery consulted for CABG. Appreciate recommendations. Plan for CABG once stable. She is now off pressor support. On c-pap trial and possible extubation today. Currently pain free. Shakes head yes and no. TTE shows severe global systolic function with EF 25-30%. Recommend repeat study later this week once stabe. TTE completed with tachycardia. Repeat TTE tomorrow if HR is not elevated. Currently sinus tachycardia HR 115. Likely due to stree of cpap trial. Will start low dose BB . Continue asa and heparin gtt. No statin due to hepatic insufficiency. We will follow with you. (2) Heart failure, systolic, with acute decompensation Current Visit: Yes Status: Acute Acute decompensated systolic CHF with global dysfunction. EF 25-30%. CTA negative for PE. Showed acute airspace disease likely pulmonary edema, PNA could not be ruled out. Presents with acute pulmonary edema secondary to NSTEMI. IV lasix was given yesterday. Net negative 986ml. Strict I&O and daily weights. No bb or aceI with hypotension. Consider starting when able. Discussion w patient/family: The assessment and plan as outlined above was discussed with the patient and/or family members who expressed understanding and agreement. All questions were answered. Thank you for involving us in the care of your patient. Please call with any questions. Subjective Principal diagnosis: Acute myocardial infarction Interval history: Ms. Jean is currently on c-pap trial for possible extubation. She is tolerating well currently. Family at bedside. She denies chest pain. Objective Vital Signs, Last 4 Hours Temp Pulse Resp BP Pulse Ox 02/21/18 10:13 20 99 02/21/18 10:10 25 97 02/21/18 09:00 111 20 125/60 98 02/21/18 08:00 100 28 118/66 99 02/21/18 07:42 99.2 F 02/21/18 07:23 28 99 02/21/18 07:00 92 28 109/55 99 General: No Apparent Distress, Other (Intubated, shake head yes and no. ) HEENT: Atraumatic, Normocephaly, Mucus Membranes Moist Neck: No JVD, Normal carotid pulses Cardiac: Reg Rate and Rhythm, Normal S1 and S2, No Murmur Lungs: Normal Breath Sounds, No Wheeze, Rales, Rhonchi Neuro: Alert and responsive, No focal deficits noted Abdomen: Soft, Non-Tender Skin: No rashes noted on visualized skin Musculoskeletal: No Chest Wall Tenderness Extremities: No Clubbing, No Cyanosis, No Edema, Normal Pulses Results 02/21/18 05:47 02/21/18 04:58 Lab Results 02/20/18 02/20/18 02/20/18 11:06 14:48 18:54 WBC Hgb Hct Plt Count INR APTT Sodium Potassium Chloride Carbon Dioxide BUN Creatinine Glucose Calcium Magnesium Total Bilirubin AST ALT Alkaline Phosphatase Troponin I 35.51 H* 52.76 H* 33.12 H* 02/20/18 02/21/18 02/21/18 22:00 04:00 04:58 WBC Hgb Hct Plt Count INR 1.3 APTT 28.9 D 58.3 H D Sodium 136 Potassium 3.8 Chloride 105 Carbon Dioxide 25 BUN 17 Creatinine 0.56 L Glucose 165 H Calcium 7.7 L Magnesium 1.8 Total Bilirubin 0.5 AST 130 H ALT 93 H Alkaline Phosphatase 43 Troponin I 02/21/18 05:47 WBC 12.2 H Hgb 11.4 L D Hct 33.4 L Plt Count 161 INR APTT Sodium Potassium Chloride Carbon Dioxide BUN Creatinine Glucose Calcium Magnesium Total Bilirubin AST ALT Alkaline Phosphatase Troponin I - Imaging and Cardiology Echo: report reviewed Cardiac cath: report reviewed - EKG Interpretation EKG results cardiology: personally reviewed Consult Discharge Plan - Plan Referrals: Nicola Vinson DO [Primary Care Provider] -
[2018-02-21] MEDS ORDERED: Potassium Phosphate 44 MEQ in 0.9 % Sodium Chloride 250 ML IVPB PRN (10:36)
[2018-02-21] MEDS: Doxycycline 100 MG in 0.9 % Sodium Chloride Mini Bag 100 ML IVPB SCH (11:02)
[2018-02-21] MEDS: Furosemide 20 MG/2 ML VIAL IVP SCH ×2 (11:08→22:08)
[2018-02-21] MEDS: FentaNYL (PF) 1,000 MCG in 0.9 % Sodium Chloride 80 ML IVC SCH (11:16)
[2018-02-21 12:11] LABS: Estimated Average Glucose 123 mg/dl; Hemoglobin A1C 5.9 %
[2018-02-21] MEDS: Metoprolol XL (24 HR) Succ 25 MG TAB.ER.24H PO SCH ×2 (13:06→14:09)
[2018-02-21] MEDS ORDERED: *HR* LORazepam 2 MG/ML VIAL IVP PRN (16:34)
[2018-02-21 18:10] LABS: VBG Ionized Calcium 1.08 mmol/L (1.15-1.35)
--- NOTE | 2018-02-21 18:17 | Electrocardiograph Report ---
[address] [place], [place] [address] Test Date: 2018-02-20 Pat Name: Heidi Jean Department: 104 Room: 06 Gender: F Nurse Monitoring: : 1955 Requested By: Jerzy Ibarra Order Number: [id number] Reading MD: Alejandro Hope Measurements Intervals [place] Rate: 149 P: 197 MA: 95 QRS: 21 QRSD: 88 T: 47 QT: 325 QTc: 410 Interpretive Statements SINUS TACHYCARDIA WITH SHORT MA INTERVAL, POSSIBLE ATRIAL FLUTTER Electronically Signed On 02-21-2018 18:16:07 EDT by Alejandro Hope
--- NOTE | 2018-02-21 18:19 | Electrocardiograph Report ---
[address] [place], [place] [address] Test Date: 2018-02-20 Pat Name: Heidi Jean Department: 109 Room: [facility] Gender: F Customer Service Assistant: : 1955 Requested By: [id number] Order Number: [id number] Reading MD: Alejandro Hope Measurements Intervals [place] Rate: 111 P: 53 LA: 145 QRS: 40 QRSD: 85 T: 62 QT: 351 QTc: 417 Interpretive Statements SINUS TACHYCARDIA Electronically Signed On 02-21-2018 18:18:02 EDT by Alejandro Hope
[2018-02-21 21:49] LABS: Hepatitis A Antibody IgM Nonreactive (Nonreactive); Hepatitis B Surface Antigen Nonreactive (Nonreactive); Hepatitis C Virus Antibody Nonreactive (Nonreactive)
[2018-02-22 00:57] LABS: Hepatitis B Core IgM Nonreactive (Nonreactive)
[2018-02-22] MEDS: Insulin LISPRO 300 UNITS/3 ML VIAL SQ SCH ×6 (03:01→20:24)
[2018-02-22 03:37] LABS: Basophils % 0.2 %; Eosinophils # 0.1 K/mcL (0.0-0.6); Eosinophils % 0.7 %; Hematocrit 28.9 % (35.3-44.9); Immature Granulocytes % 0.5 % (0-4); Lymphocytes # 2.2 K/mcL (0.6-4.6); Lymphocytes % 22.3 %; Mean Corpuscular HGB Conc 32.9 g/dL (31.6-35.5); Mean Corpuscular Hemoglobin 29.9 pg (28.0-33.3); Mean Corpuscular Volume 90.9 fL (83.0-100.0); Mean Platelet Volume 10.3 fL (9.4-12.4); Monocytes # 0.6 K/mcL (0.0-1.3); Monocytes % 6.3 %; Platelet Count 158 K/mcL (140-400); Red Blood Count 3.18 M/mcL (3.82-4.97); Red Cell Distribution Width 14.6 % (11.5-14.5)
[2018-02-22 03:39] LABS: Hemoglobin 9.5 g/dL (11.5-15.4)
[2018-02-22 03:44] LABS: Bilirubin,Direct 0.1 mg/dL (0.0-0.2); Bilirubin,Indirect 0.4 mg/dL (0.0-1.2); Bilirubin,Total 0.5 mg/dL (0.3-1.0); Globulin 2.9 g/dL (2.4-3.5); Total Protein 5.9 g/dL (6.4-8.9)
[2018-02-22 04:02] LABS: Activated Partial Thrombo Time 94.5 Seconds (26.0-36.0)
[2018-02-22 04:07] LABS: VBG Ionized Calcium 1.13 mmol/L (1.15-1.35)
[2018-02-22 04:09] LABS: INR 1.3; Prothrombin Time 14.9 Seconds (9.4-12.1)
[2018-02-22 04:30] LABS: Alanine Aminotransferase 63 Units/L (7-52); Albumin/Globulin Ratio 1.1 (1.1-2.2); Alkaline Phosphatase 40 Units/L (34-104); Aspartate Amino Transferase 65 Units/L (13-39); BUN/Creatinine Ratio 36 (6-26); Bilirubin,Total 0.5 mg/dL (0.3-1.0); Blood Urea Nitrogen 15 mg/dL (8-23); Calcium 8.2 mg/dL (8.6-10.3); Carbon Dioxide 29 mEq/L (23-29); Chloride 104 mEq/L (98-107); Globulin 2.7 g/dL (2.4-3.5); Glucose 133 mg/dL (70-105); Magnesium 2.2 mg/dL (1.6-2.6); Osmolality,Calculated 289 (280-300); Phosphorous 2.3 mg/dL (2.7-4.5); Potassium 3.8 mEq/L (3.5-5.1); Sodium 138 mEq/L (136-145); Total Protein 5.7 g/dL (6.4-8.9); eGFR For African Americans > 60 (> 60); eGFR For Non-African Americans > 60 (> 60)
[2018-02-22] MEDS: Famotidine 20 MG/2 ML VIAL IVP SCH ×2 (06:13→16:38)
--- NOTE | 2018-02-22 06:20 | Cardiothoracic Progress Note ---
Date of Encounter: 02/22/18 Time of Encounter: 06:18 - Assessment and plan (1) NSTEMI (non-ST elevated myocardial infarction) Current Visit: Yes Status: Acute The patient remained hemodynamic stable overnight. The patient's liver enzymes are elevated and she should be evaluated by GI. The echocardiogram should be repeated later this week prior to possible CABG. The assessment and plan as outlined above was discussed with the patient and/or family members who expressed understanding and agreement. All questions were answered. - Subjective Interval history: The patient remained hemodynamically stable overnight. She is currently extubated and breathing comfortably. She has no complaints of substernal chest pain or shortness of breath. Vital Signs, Last 4 Hours Temp Pulse Resp BP Pulse Ox 02/22/18 05:00 95 14 135/72 99 02/22/18 04:34 18 99 02/22/18 04:00 99.7 F H 96 17 126/65 99 02/22/18 03:00 88 21 120/69 97 Oxgyen Flow Rate Oxygen Flow Rate (LPM) 2 Weight 02/20/18 02/21/18 02/22/18 23:59 23:59 23:59 Weight 117.2 kg 120.9 kg 119.1 kg - Physical Examination General: Conversant, No Apparent Distress Neck: No JVD, Normal carotid pulses Cardiac: Reg Rate and Rhythm, Normal S1 and S2, No Murmur Lungs: Normal Breath Sounds, No Wheeze, Rales, Rhonchi Neuro: Alert and responsive, No focal deficits noted Vascular: Normal capillary refill Extremities: No Clubbing, No Cyanosis, No Edema - Labs 02/22/18 03:10 02/22/18 03:10 Lab Results, Last 24 hours 02/21/18 02/21/18 02/21/18 12:00 18:32 19:37 WBC Hgb Hct Plt Count INR APTT 55.7 H 57.8 H Sodium Potassium Chloride Carbon Dioxide BUN Creatinine Glucose Calcium Magnesium 2.3 Total Bilirubin AST ALT Alkaline Phosphatase 02/22/18 02/22/18 02/22/18 03:00 03:10 03:10 WBC 10.1 Hgb 9.5 L D Hct 28.9 L Plt Count 158 INR 1.3 APTT 94.5 H D Sodium 138 Potassium 3.8 Chloride 104 Carbon Dioxide 29 BUN 15 Creatinine 0.42 L Glucose 133 H Calcium 8.2 L Magnesium 2.2 Total Bilirubin 0.5 AST 65 H ALT 63 H Alkaline Phosphatase 40 02/22/18 03:10 WBC Hgb Hct Plt Count INR APTT Sodium Potassium Chloride Carbon Dioxide BUN Creatinine Glucose Calcium Magnesium Total Bilirubin 0.5 AST 67 H ALT 65 H Alkaline Phosphatase 36 - Imaging Chest Xray: image reviewed (No pneumothorax. Improved aeration in both lung stone.) - VTE Documentation of Mechanical Device: Graduated compression elastic hosiery Consult Discharge Plan - Plan Referrals: Nicola Vinson DO [Primary Care Provider] -
--- NOTE | 2018-02-22 06:23 | Electrocardiograph Report ---
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
--- NOTE | 2018-02-22 06:43 | Pulmonology Progress Note ---
<IsatuAdam W - Last Filed: 02/22/18 10:13> Date of Encounter: 02/22/18 Objective PUL Vital signs: Last Vital Signs Temp 99.0 F 02/22/18 08:47 Pulse 96 02/22/18 08:00 Resp 19 02/22/18 08:00 BP 146/79 02/22/18 08:00 Pulse Ox 95 02/22/18 08:00 Results - Laboratory Findings CBC and BMP: 02/22/18 03:10 02/22/18 03:10 ABG ABG pH 7.41 pH Units (7.32-7.45) 02/21/18 04:58 ABG pCO2 41 mmHg (35-45) 02/21/18 04:58 ABG pO2 117 mmHg (85-104) H 02/21/18 04:58 ABG O2 Saturation 99 % (95-98) H 02/21/18 04:58 PT/INR, D-dimer PT 14.9 Seconds (9.4-12.1) H 02/22/18 03:00 Abnormal lab findings: Abnormal lab results RBC 3.18 M/mcL (3.82-4.97) L 02/22/18 03:10 Hgb 9.5 g/dL (11.5-15.4) L D 02/22/18 03:10 Hct 28.9 % (35.3-44.9) L 02/22/18 03:10 RDW 14.6 % (11.5-14.5) H 02/22/18 03:10 PT 14.9 Seconds (9.4-12.1) H 02/22/18 03:00 APTT 94.5 Seconds (26.0-36.0) H D 02/22/18 03:00 Heparin Anti-Xa, Unfract 1.06 IU/mL (0.30-0.70) H* 02/20/18 07:17 ABG pO2 117 mmHg (85-104) H 02/21/18 04:58 ABG Total CO2 27 mEq/L (20-26) H 02/21/18 04:58 ABG O2 Saturation 99 % (95-98) H 02/21/18 04:58 Creatinine 0.42 mg/dL (0.60-1.20) L 02/22/18 03:10 BUN/Creatinine Ratio 36 (6-26) H 02/22/18 03:10 Glucose 133 mg/dL (70-105) H 02/22/18 03:10 POC Glucose 148 mg/dL (70-99) H 02/21/18 23:50 Hemoglobin A1c 5.9 % (-5.6) H 02/21/18 05:47 Calcium 8.2 mg/dL (8.6-10.3) L 02/22/18 03:10 Venous Ioniz Calcium 1.13 mmol/L (1.15-1.35) L 02/22/18 04:03 Phosphorus 2.3 mg/dL (2.7-4.5) L 02/22/18 03:10 AST 65 Units/L (13-39) H 02/22/18 03:10 ALT 63 Units/L (7-52) H 02/22/18 03:10 Troponin I 33.12 ng/mL (< 0.04) H* 02/20/18 18:54 Serum Total Protein 5.7 g/dL (6.4-8.9) L 02/22/18 03:10 Albumin 3.0 g/dL (3.5-5.7) L 02/22/18 03:10 Ur Specific [place] 1.026 (1.010-1.025) H 02/20/18 11:45 - Microbiology Findings Microbiology Findings: Microbiology, Last 48 Hours 02/20/18 10:30 Sputum Culture - Preliminary Sputum 02/20/18 14:35 Urine Culture - Preliminary Urine,[place] No growth. Legionella Antigen - Final Streptococcus pneumoniae Antigen (M - Final 02/20/18 10:21 Blood Culture - Preliminary Central Venous Catheter Culture is incubating and being continuously monitored for growth. Final report to follow. - Clinical Findings Intake & Output: Intake & Output 02/21/18 02/22/18 02/22/18 23:59 07:59 15:59 Intake Total 723 / 723 369 / 369 4 / 4 Output Total 950 / 950 800 / 800 775 / 775 Balance -227 / -227 -431 / -431 -771 / -771 Weight 119.1 kg Consult Discharge Plan - Plan Referrals: Nicola Vinson DO [Primary Care Provider] - 03/01/18 9:30 am Clif Augustine CNP [Advanced Practice Nurse] - (the office will call patient at home with follow up appointment) - Attending Attestation I examined this patient and my medical decision-making was reviewed with the Resident Physician. I agree with the documented findings, disposition and treatment plan as described except to the extent set forth below. We independently had [id number] contact with the patient Patient seen and examined at bedside Labs, radiology, chart personally reviewed. QUANTITATIVE ANALYST: Awake and alert no focal deficits Pulm: extuabated acceptable Oxygenation on Nasal Cannula Cards: Cardiogenic shock resolved. NTSEMI with multivessel CAD plan for CABG Cardiology/CTS managing GI: Elevated liver enzymes. w/u pending Hep Panel neg GI consulted. ?HERZOG Nutrition: ADAT Renal: UOP Monitored, Cont to Trend sCr and monitor Electrolytes. ID: No active issues Heme/Onc: Cont Heparin gtt Endo: Glucose Monitored Integ/MSK: Skin Care per routine ICU Nursing Protocol to prevent ulcers. Lines: All lines examined without evidence of infection : Dispo: Stable for Med Tele CODE: Full Pulmonary will sign off. please call with questions <William Harden - Last Filed: 02/22/18 10:29> Date of Encounter: 02/22/18 Time of Encounter: 06:43 Assessment and Plan (1) NSTEMI (non-ST elevated myocardial infarction) Current Visit: Yes Status: Acute Patient initially presented here with chest pain in the emergency Department her initial troponin was 0.8 for cancer to be an and STEMI. EKG had no acute ST changes. Troponin slightly increased where was highest yesterday evening at 52.76. Since then has decreased to 33.12. Patient is still having an and STEMI. They did do left heart catheterization yesterday which showed an ejection fraction of 40% 60% left main lesion, LAD 90% proximal lesion, circumflex coronary artery is 100% blocked and right coronary artery has 99% proximal lesion. Due to the level blockage cardiothoracic surgery was consult did he said patient is a candidate for coronary artery bypass grafting. They will consider doing a later in the week. Plan is to extubate patient is sitting get better history and have patient stabilizes before this began the surgery later this week. Patient still on heparin. She is been weaned off pressors. We will continue to await cardiothoracic surgeries recommendations Patient does have plan for open heart surgery pending echocardiogram done today. From critical care standpoint there is no further management needed patient will be transferred to the hospitalist service and stepdown to 2N unit. (2) Acute respiratory failure Current Visit: Yes Status: Resolved Patient initially had severe VQ mismatch due to pulmonary edema but underlying pneumonia cannot be ruled out. Patient was started on Zosyn, vancomycin, doxycycline for possible aspiration pneumonia. CT of the chest was negative for pulmonary embolism. Blood cultures, sputum cultures, strep pneumonia, Legionella were ordered and are still pending. MRSA swab still pending. Patient did have respiratory acidosis initially said increase the PEEP. We are continuing to monitor ABGs. Patient was then changed to low lung volume preventive ventilator settings. Vent bundle ordered. Patient was successfully extubated acute respiratory failure has gotten better no longer on any antibiotics. May need BiPAP when necessary for hypoxia at night. recommend outpatient sleep study for possible DEVAN Qualifiers: Qualified Code(s): J96.01 - Acute respiratory failure with hypoxia; J96.02 - Acute respiratory failure with hypercapnia (3) Elevated troponin Current Visit: Yes Status: Acute Patient did have continually elevating troponins all only up to the 50s. Since then have decreased to 33. EKG was repeated today. EKG impression: EKG done 02/21/2018@0 828 review myself and the attending shows sinus tachycardia at a rate of 109, GA interval 164, QRS 90, QTC 374 with a leftward axis. There is no acute ST changes no acute T-wave changes no other signs of ischemia. No signs of heart strain, hypertrophy, heart block. No WPW/ Brugada syndrome. This most likely secondary to patient having an STEMI. Cardiology and cardiothoracic surgery following the patient we appreciate their recommendations. Patient was on dopamine gtt. from ER per cards recommendation patient was started on Levaquin fed patient was titrated down is no longer on any pressors at this time and keeping a map of greater than 60. Avoiding IV fluids at this time due to flash pulmonary edema. Echocardiogram done showing an EF of 25-30% with no obvious wall motion abnormalities but was limited due to tachycardia. We will repeat echocardiogram later in the week. Continue heparin gtt. and full dose aspirin daily. Cardiology added beta kaleb. They are continuing with Lasix 20 mg twice a day. Will await further recommendations from them (4) Septic shock Current Visit: Yes Status: Resolved Patient did meet sepsis criteria but most likely is due to cardiogenic shock not sepsis also causing patient's pulmonary edema. Viral panel came back all negative as well as sputum cultures. Due to this we will stop all antibiotics including vancomycin, Zosyn, doxycycline. We will continue to monitor White blood cell count see if there is any changes. Septic shock has resolved patient is no longer needing pressor support. (5) Heart failure, systolic, with acute decompensation Current Visit: Yes Status: Acute Patient does have acute decompensated systolic CHF with global dysfunction. Most likely secondary to an STEMI. IV Lasix was given will hold beta kaleb and ARI inhibitor due to patient's hypotension. Cardiology is following appreciate their recommendations Continue 20 mg twice a day Lasix per cardiology's request. Beta kaleb has been started. (6) Elevated liver enzymes Current Visit: Yes Status: Acute Patient did have elevated liver enzymes were initial AST was 71, a LT 119. Repeat today showed AST of 130 and ALT of 93. We will order a right upper quadrant ultrasound as well as hepatitis panel. Depending on these results will consider GI consultation. We will also continue to trend the AST and ALT AST and ALT have lowered are still elevated. Upper quadrant ultrasound showed hepatic steatosis. Hepatitis of viral panel was negative. Her current thoracic's requests GI consultation was ordered they will come see the patient we appreciate their recommendations (7) Hypophosphatemia Current Visit: Yes Status: Acute Replacing with electrolyte protocol (8) Hypocalcemia Current Visit: Yes Status: Acute Replacing with electrolyte protocol (9) Severe obesity (BMI >= 40) Current Visit: Yes Status: Acute Patient does have severe obesity with a BMI of 50.4. The severe obesity does make Nsemi-and worsening inspiratory status more likely. Patient does have history diabetes. We will consult the patient on diet changed to help with severe obesity. (10) Diabetes mellitus type 2 in obese Current Visit: Yes Status: Acute Patient currently on insulin sliding scale. Changed it to every 4 hours while patient is no longer eating at this time. (11) DVT prophylaxis Current Visit: Yes Status: Acute Patient currently on heparin due to NSTEMI Subjective Principal diagnosis: Acute myocardial infarction Interval history: Patient was seen and evaluated by myself. Labs and imaging were reviewed. Patient did well overnight. Patient is no longer intubated. She did use BiPAP overnight because patient has possible DEVAN. This can be seen in the outpatient setting. Patient is more alert and oriented. Still planning for open heart surgery to be done on pending echocardiogram today. Patient will be step down to 2 N. and followed by hospitalist Objective PUL Vital signs: Last Vital Signs Temp 99.7 F H 02/22/18 04:00 Pulse 91 02/22/18 06:00 Resp 16 02/22/18 06:00 BP 125/68 02/22/18 06:00 Pulse Ox 97 02/22/18 06:00 General appearance: no acute distress, alert Eyes: nonicteric ENT: oropharynx moist Neck: supple Effort: normal Auscultation: bilateral: rales (Mild bilaterally in the bases) Cardiovascular: regular rate and rhythm Gastrointestinal: normoactive bowel sounds, soft, non-tender, non-distended Integumentary: normal Extremities: no cyanosis, no edema, no clubbing Musculoskeletal: no deformities, ROM normal normal mental status, non-focal exam, pupils equal and round, motor strength normal and symmetric Results - Laboratory Findings CBC and BMP: 02/22/18 03:10 02/22/18 03:10 ABG ABG pH 7.41 pH Units (7.32-7.45) 02/21/18 04:58 ABG pCO2 41 mmHg (35-45) 02/21/18 04:58 ABG pO2 117 mmHg (85-104) H 02/21/18 04:58 ABG O2 Saturation 99 % (95-98) H 02/21/18 04:58 PT/INR, D-dimer PT 14.9 Seconds (9.4-12.1) H 02/22/18 03:00 Abnormal lab findings: Abnormal lab results RBC 3.18 M/mcL (3.82-4.97) L 02/22/18 03:10 Hgb 9.5 g/dL (11.5-15.4) L D 02/22/18 03:10 Hct 28.9 % (35.3-44.9) L 02/22/18 03:10 RDW 14.6 % (11.5-14.5) H 02/22/18 03:10 PT 14.9 Seconds (9.4-12.1) H 02/22/18 03:00 APTT 94.5 Seconds (26.0-36.0) H D 02/22/18 03:00 Heparin Anti-Xa, Unfract 1.06 IU/mL (0.30-0.70) H* 02/20/18 07:17 ABG pO2 117 mmHg (85-104) H 02/21/18 04:58 ABG Total CO2 27 mEq/L (20-26) H 02/21/18 04:58 ABG O2 Saturation 99 % (95-98) H 02/21/18 04:58 Creatinine 0.42 mg/dL (0.60-1.20) L 02/22/18 03:10 BUN/Creatinine Ratio 36 (6-26) H 02/22/18 03:10 Glucose 133 mg/dL (70-105) H 02/22/18 03:10 POC Glucose 148 mg/dL (70-99) H 02/21/18 23:50 Hemoglobin A1c 5.9 % (-5.6) H 02/21/18 05:47 Calcium 8.2 mg/dL (8.6-10.3) L 02/22/18 03:10 Venous Ioniz Calcium 1.13 mmol/L (1.15-1.35) L 02/22/18 04:03 Phosphorus 2.3 mg/dL (2.7-4.5) L 02/22/18 03:10 AST 65 Units/L (13-39) H 02/22/18 03:10 ALT 63 Units/L (7-52) H 02/22/18 03:10 Troponin I 33.12 ng/mL (< 0.04) H* 02/20/18 18:54 Serum Total Protein 5.7 g/dL (6.4-8.9) L 02/22/18 03:10 Albumin 3.0 g/dL (3.5-5.7) L 02/22/18 03:10 Ur Specific [place] 1.026 (1.010-1.025) H 02/20/18 11:45 - Microbiology Findings Microbiology Findings: Microbiology, Last 48 Hours 02/20/18 10:30 Sputum Culture - Preliminary Sputum 02/20/18 14:35 Urine Culture - Preliminary Urine,[place] No growth. Legionella Antigen - Final Streptococcus pneumoniae Antigen (M - Final 02/20/18 10:21 Blood Culture - Preliminary Central Venous Catheter Culture is incubating and being continuously monitored for growth. Final report to follow. - Clinical Findings Intake & Output: Intake & Output 02/21/18 02/21/18 02/22/18 15:59 23:59 07:59 Intake Total 477.6 / 477.6 723 / 723 369 / 369 Output Total 150 / 150 950 / 950 800 / 800 Balance 327.6 / 327.6 -227 / -227 -431 / -431 Weight 119.1 kg - VTE Documentation of Mechanical Device: Graduated compression elastic hosiery
[2018-02-22] MEDS ORDERED: Perflutren Lipid Microsphere 1.3 ML in 0.9 % Sodium Chloride 8.7 ML IVP ONE (07:06)
[2018-02-22] MEDS: Norepinephrine 4 MG in D5% in Water 250 ML IVC SCH (07:49)
[2018-02-22] MEDS: Chlorhexidine Rinse 15 ML MOUTHWASH MM SCH (08:33)
[2018-02-22] MEDS: Metoprolol XL (24 HR) Succ 25 MG TAB.ER.24H PO SCH (08:47)
[2018-02-22] MEDS: Furosemide 20 MG/2 ML VIAL IVP SCH ×2 (08:47→20:37)
[2018-02-22] MEDS: Aspirin 81 MG TAB.CHEW PO SCH (08:47)
[2018-02-22] MEDS ORDERED: Naloxone 0.4 MG/ML INJ IVP PRN (09:24)
[2018-02-22] MEDS ORDERED: D5% in Water 1,000 ML IVC PRN (09:24)
[2018-02-22] MEDS ORDERED: Dextrose Gel 15 GM/37.5 ML TUBE PO PRN ×2 (09:24)
[2018-02-22] MEDS ORDERED: *HR* Dextrose 50 % in Water (Syg) 50 ML SYRINGE IVP PRN (09:24)
[2018-02-22] MEDS ORDERED: *HR* Heparin 5,000 UNIT/ML VIAL IVP PRN ×2 (09:24)
[2018-02-22] MEDS ORDERED: Potassium Phosphate 44 MEQ in 0.9 % Sodium Chloride 250 ML IVPB PRN (09:24)
[2018-02-22] MEDS ORDERED: *HR* LORazepam 2 MG/ML VIAL IVP PRN (09:24)
--- NOTE | 2018-02-22 10:23 | Cardiology Progress Note ---
Date of Encounter: 02/22/18 Time of Encounter: 10:20 Assessment and Plan (1) NSTEMI (non-ST elevated myocardial infarction) Current Visit: Yes Status: Acute Nstemi with troponin elevation up to 53. S/p C that showed severe three vessel CAD including LMCA disease. CT surgery consulted for CABG. Appreciate recommendations. Plan for CABG once stable. She is now off pressor support and extubated. Possible surgery later this week. Currently pain free. TTE shows severe global systolic function with EF 25-30%. Recommend repeat study later this week once stabe. TTE completed with tachycardia. Repeat TTE Completed this morning. Continue asa, bb, and heparin gtt. No statin due to hepatic insufficiency. Will increase beta-kaleb. She is tolerating well. We will follow with you. (2) Heart failure, systolic, with acute decompensation Current Visit: Yes Status: Acute Acute decompensated systolic CHF with global dysfunction. EF 25-30%. CTA negative for PE. Showed acute airspace disease likely pulmonary edema, PNA could not be ruled out. Presents with acute pulmonary edema secondary to NSTEMI. On IV lasix. CXR repeated yesterday showed improving pulmonary edema, now mild. Continue lasix today. I will order extra dose of lasix for thia afternoon. Only negative 262 for 24 hours due to multiple IV medications. Net negative 2L for stay. Now off pressor support. Strict I&O and daily weights. Tolerating toprol xl. No aceI due to planned CABG. (3) Anemia Current Visit: Yes Status: Acute Hgb noted to be trending downward. Hgb initially 14.9 and now 9.5. No active signs of bleeding. Left femoral access without hematoma. May be partly due to dilution and post procedure. Will order repeat this afternoon. Consider anemia work-up if indicated. Ideally heparin gtt should be continued while awaiting surgery in the setting of NSTEMI and severe LMCA and LAD disease as long as tolerated. Qualifiers: Anemia type: unspecified type Qualified Code(s): D64.9 - Anemia, unspecified Discussion w patient/family: The assessment and plan as outlined above was discussed with the patient and/or family members who expressed understanding and agreement. All questions were answered. Thank you for involving us in the care of your patient. Please call with any questions. Subjective Principal diagnosis: Acute myocardial infarction Interval history: Ms. Jean is now extubated. Denies chest pain. Mild SOB noted. Reports h/o frequent panic attacks. States that she had panic attack with WI and again last night. Takes lexapro. She is now feeling better. Objective Vital Signs, Last 4 Hours Temp Pulse Resp BP Pulse Ox 02/22/18 10:17 98.5 F 95 16 140/75 95 02/22/18 08:47 99.0 F 02/22/18 08:00 96 19 146/79 95 02/22/18 07:50 98 02/22/18 07:00 99 18 138/71 97 General: Conversant, Other HEENT: Atraumatic, Normocephaly, Mucus Membranes Moist Neck: No JVD, Normal carotid pulses Cardiac: Reg Rate and Rhythm, Normal S1 and S2, No Murmur Lungs: Other (Respirations slightly labored, rhonci scattered throughout. Moist cough noted. ) Neuro: Alert and responsive, No focal deficits noted Abdomen: Soft, Non-Tender Skin: No rashes noted on visualized skin Musculoskeletal: No Chest Wall Tenderness Extremities: No Clubbing, No Cyanosis, No Edema, Normal Pulses Results 02/22/18 03:10 02/22/18 03:10 Lab Results 02/21/18 02/21/18 02/21/18 12:00 18:32 19:37 WBC Hgb Hct Plt Count INR APTT 55.7 H 57.8 H Sodium Potassium Chloride Carbon Dioxide BUN Creatinine Glucose Calcium Magnesium 2.3 Total Bilirubin AST ALT Alkaline Phosphatase 02/22/18 02/22/18 02/22/18 03:00 03:10 03:10 WBC 10.1 Hgb 9.5 L D Hct 28.9 L Plt Count 158 INR 1.3 APTT 94.5 H D Sodium 138 Potassium 3.8 Chloride 104 Carbon Dioxide 29 BUN 15 Creatinine 0.42 L Glucose 133 H Calcium 8.2 L Magnesium 2.2 Total Bilirubin 0.5 AST 65 H ALT 63 H Alkaline Phosphatase 40 02/22/18 03:10 WBC Hgb Hct Plt Count INR APTT Sodium Potassium Chloride Carbon Dioxide BUN Creatinine Glucose Calcium Magnesium Total Bilirubin 0.5 AST 67 H ALT 65 H Alkaline Phosphatase 36 - Imaging and Cardiology Echo: pending, report reviewed - EKG Interpretation EKG results cardiology: personally reviewed - VTE Documentation of Mechanical Device: Graduated compression elastic hosiery Consult Discharge Plan - Plan Referrals: Nicola Vinson DO [Primary Care Provider] - 03/01/18 9:30 am Clif Augustine, MERY [Advanced Practice Nurse] - (the office will call patient at home with follow up appointment)
--- NOTE | 2018-02-22 10:37 | Gastroenterology Consult Note ---
Date of Encounter: 02/22/18 Time of Encounter: 10:35 - Assessment and plan (1) Elevated liver enzymes Current Visit: Yes Status: Acute Assessment and plan: - As demonstrated by CMP on this admission as well as while outpatient in December 2017 - AST 71/130/67 - ALT 119/93/65 - Viral hepatitis panel negative - RUQ US shows probable hepatic steatosis - patient was also notably hypotensive requiring vasopressor support in the ICU Plan - Likely secondary to cardiogenic shock due to NSTEMI. Has resolved - LFTs downtrending - Likly component of HERZOG as well - Will obtain labs to assess for alternative etiologies. - Recommend no further invasive workup. Further management of NSTEMI per CT and cardiology. (2) Hepatic steatosis Current Visit: Yes Status: Acute Assessment and plan: - As noted on right upper quadrant US. - LFTs downtrending. - No further inpatient testing necessary. - Follow up with Gi as outpatient. (3) NSTEMI (non-ST elevated myocardial infarction) Current Visit: Yes Status: Acute Assessment and plan: - Further management per primary,cardiology, CT surgery - Time Spent With Patient Total time spent is greater than 50% in coordination of care (as documented) at patient's floor/unit and/or counseling patient: 25 - 35 minutes GI History of Present Illness - Data of Consult Patient: new to practice Consult date: 02/22/18 Requesting Physician: Rich Ramirez MD - Consult Narrative Reason for consult: Elevated LFTs History of present illness: Ms. Jean is a 62 year old female with a past medical history of diabetes, hypertension, anxiety, depression, lupus presented to emergency room with complaint of intermittent chest pain and arm tingling. She has been evaluated by cardiology and found have NSTEMI with a peak troponin of 52.76. Cardiac catheterization showed severe three-vessel disease. Cardiothoracic surgery was consult for possible CABG and recommends GI consultation for routine screening of elevated liver enzymes. Patient denies any history of liver disease as well as a family history liver disease. She is experiencing no abdominal pain at this time as well as nausea, vomiting, changes in bowel habits. She is status post cholecystectomy in 2001 and has loose stools ever since then, otherwise normal for her. She states last colonoscopy was approximately 10 years ago and normal. She has never had an EGD in the past. Per chart review, LFTs were mildly elevated in December 2017 and previously normal before that however limited lab results are available. Right upper quadrant ultrasound obtained while admitted shows hepatic steatosis. She was also noted to present to ED and admitted to ICU for cardiogenic shock requiring vasopressor support. She denies any history of heavy alcohol abuse, is currently a non-drinker. Colonoscopy: 10 years, wnl EGD: never Past Med Surg Social Fam HX - Past Medical History Medical history: diabetes, hyperlipidemia, hypertension Additional medical history: Lupus & irritable bowel syndrome Psychiatric history: no psych history - Past Surgical History Additional surgical history: hysterectomy galbladder - Social History Smoking Status: Former smoker Smokeless Tobacco Status: No Alcohol use: none Drug use: none - Family History Mother Adopted: [place]: Lia Bangura Living Status: Age at : 82 Cause of : Alzheimers Hx Family Cardiac Disorders: No Hx Family Respiratory Disorders: No Hx Family Cancer: Yes Hx Family GI Disorders: Yes Hx Family Genitourinary Disorders: No Hx Family Endocrine Disorder: Yes Hx Family Musculoskeletal Disorders: Yes Hx Family Neuromuscular Disorders: No Hx Family Neurologic Disorders: No Hx Family HEENT Disorders: No Hx Family Autoimmune Disorders: No Hx Family Reproductive Disorders: No Hx Family Psychosocial Disorders: No Hx Family Medical Disorders: No Father Adopted: [place]: Chavo Living Status: Age at : 84 Cause of : DE, Respiratory failure Hx Family Cardiac Disorders: Yes Hx Family Respiratory Disorders: Yes Hx Family Cancer: No Hx Family GI Disorders: No Hx Family Genitourinary Disorders: No Hx Family Endocrine Disorder: Yes Hx Family Musculoskeletal Disorders: No Hx Family Neuromuscular Disorders: No Hx Family Neurologic Disorders: No Hx Family HEENT Disorders: No Hx Family Autoimmune Disorders: No Hx Family Reproductive Disorders: No Hx Family Psychosocial Disorders: No Hx Family Medical Disorders: No - Gastrointestinal Gastrointestinal: Absent: abdominal pain, bloating, change in bowel habits, coffee ground emesis, constipation, diarrhea, hematochezia, melena, nausea, vomiting - Constitutional Constitutional: no anorexia, no fatigue, no fever(s) - Cardiovascular Cardiovascular ROS: Present: as per HPI, chest pain (Resolved) - Respiratory Respiratory IM: Present: dyspnea (Resolved). Absent: cough - Integumentary Integumentary GI: Absent: jaundice, rash - Constitutional Vitals: Temp Pulse Resp BP Pulse Ox 98.5 F 93 16 140/75 95 02/22/18 10:17 07/03/18 10:21 02/22/18 10:17 02/22/18 10:17 02/22/18 10:17 Exam: Gen.: Vitals noted. No acute distress. AAOx3 HEENT: PERRL/EOMI, oropharynx clear, Normocephalic, atraumatic, MMM Cardiac: RRR, no murmur, +S1/S2 Pulmonary: CTA bilaterally, no wheezes, rales or rhonchi, equal chest expansion Abdomen: soft, nontender, BS noted, no guarding, no rebound. Extremities: no BLE edema, nontender calf, no cyanosis or clubbing Neuro: A&Ox3, moves all extremities, no focal deficits Psych: Appropriate mood and behavior Results - Labs CBC & Chem 7: 02/22/18 12:01 02/22/18 03:10 Labs: Last Result Calcium 8.2 mg/dL (8.6-10.3) L 02/22/18 03:10 Troponin I 33.12 ng/mL (< 0.04) H* 02/20/18 18:54 Triglycerides 97 mg/dL (< 150) 02/20/18 11:06 Entire Visit Hgb 9.5 g/dL (11.5-15.4) L D 02/22/18 03:10 Hct 28.9 % (35.3-44.9) L 02/22/18 03:10 PT 14.9 Seconds (9.4-12.1) H 02/22/18 03:00 Total Bilirubin 0.5 mg/dL (0.3-1.0) 02/22/18 03:10 AST 65 Units/L (13-39) H 02/22/18 03:10 ALT 63 Units/L (7-52) H 02/22/18 03:10 - ABG ABG results: ABG ABG pH 7.41 pH Units (7.32-7.45) 02/21/18 04:58 ABG pCO2 41 mmHg (35-45) 02/21/18 04:58 ABG pO2 117 mmHg (85-104) H 02/21/18 04:58 ABG O2 Saturation 99 % (95-98) H 02/21/18 04:58 PT/INR, D-dimer PT 14.9 Seconds (9.4-12.1) H 02/22/18 03:00 - Impressions Impressions Liver Ultrasound 02/21/18 14:30 IMPRESSION: Hepatic steatosis. D/ / Tyson Ward MD / Tyson Ward MD Interpreting Provider: Tyson Ward MD Echocardiogram 02/22/18 05:00 Impressions: LVEF 40-45%. Global LV systolic dysfunction. Indeterminate diastolic function. There is no LV thrombus. Definity echo contrast was used. RV size and function not well evaluated. Mild-moderate mitral regurgitation. Mild tricuspid regurgitation. Mild pulmonary hypertension. Left Ventricular Wall Motion: Rest Echo Findings The apex, apical inferior, mid inferior, basal inferior, apical anterior, mid anterior, basal anterior, apical septal, mid inferior septal, basal inferior septal, apical lateral, mid anterior lateral, basal anterior lateral, mid anterior septal, mid inferior lateral, basal anterior septal and basal inferior lateral thakur were hypokinetic. Findings: Study Quality * Technically challenging due to body habitus. ECG Findings * Normal sinus rhythm. Left Ventricle * LVEF 40-45%. * Indeterminate diastolic function. * Normal LV chamber size and wall thickness. * There is no LV thrombus. * Definity echo contrast was used. Right Ventricle * RV size and function not well evaluated. Suboptimal TD velocity. Left Atrium * Normal left atrial size. Right Atrium * Normal right atrial size. Aortic Valve * No aortic regurgitation. * No aortic stenosis. * Aortic valve not well visualized. Mitral Valve * Normal mitral valve structure. * No mitral stenosis. * Mild mitral annular calcification * Mild-moderate mitral regurgitation. Tricuspid Valve * Tricuspid valve not well visualized. * Mild tricuspid regurgitation. * Estimated RA pressure is 3 mmHg. * Estimated RVSP is 47 mmHg. * Mild pulmonary hypertension. Pulmonic Valve * Pulmonic valve not well visualized. * Doppler signal not well obtained. Pulmonary Artery * Pulmonary artery not well visualized. Aorta * Normally sized aortic root. * Ascending aorta not well visualized. Pericardium * There is no pericardial effusion present. Interatrial Septum * No evidence of PFO by color Doppler. IVC * The IVC is not dilated. * < 50% respiratory change. Chest X-Ray 02/22/18 06:00 IMPRESSION: Improved interstitial and alveolar edema since 02/20/2018, now mild in severity. D/ / James Castaneda / James Castaneda Interpreting Provider: James Castaneda Consult Discharge Plan - Plan Referrals: Nicola Vinson DO [Primary Care Provider] - 03/01/18 9:30 am Clif Augustine, GORE INSERTER [Advanced Practice Nurse] - (the office will call patient at home with follow up appointment)
[2018-02-22] MEDS ORDERED: Metoprolol XL (24 HR) Succ 25 MG TAB.ER.24H PO ONE (10:44)
[2018-02-22] MEDS: Heparin 25,000 UNIT/500 ML D5W 25,000 UNIT/500 ML BAG IVC SCH (11:48)
[2018-02-22] MEDS ORDERED: Furosemide 20 MG/2 ML VIAL IVP ONE (12:00)
[2018-02-22 12:35] LABS: Hemoglobin 9.8 g/dL (11.5-15.4)
[2018-02-22] MEDS ORDERED: *HR* Phytonadione 10 MG/ML AMPUL SQ ONE (12:54)
[2018-02-22 21:39] LABS: % Iron Saturation 15 % (15-50); Iron 42 mcg/dL (50-170); Transferrin 203 mg/dL (203-362)
[2018-02-22 21:57] LABS: Ferritin 373 ng/mL (10-120)
[2018-02-23] MEDS: Insulin LISPRO 300 UNITS/3 ML VIAL SQ SCH ×7 (00:41→23:54)
[2018-02-23] MEDS: Heparin 25,000 UNIT/500 ML D5W 25,000 UNIT/500 ML BAG IVC SCH ×2 (02:44→15:50)
[2018-02-23] MEDS: Famotidine 20 MG/2 ML VIAL IVP SCH ×2 (06:02→16:29)
[2018-02-23 06:26] LABS: Basophils % 0.3 %; Eosinophils # 0.3 K/mcL (0.0-0.6); Eosinophils % 2.6 %; Hematocrit 28.5 % (35.3-44.9); Hemoglobin 9.4 g/dL (11.5-15.4); Lymphocytes % 20.3 %; Mean Corpuscular Hemoglobin 29.6 pg (28.0-33.3); Mean Corpuscular Volume 89.6 fL (83.0-100.0); Mean Platelet Volume 9.6 fL (9.4-12.4); Monocytes # 0.7 K/mcL (0.0-1.3); Monocytes % 6.8 %; Neutrophils # 6.7 K/mcL (1.6-8.9); Platelet Count 164 K/mcL (140-400); Red Blood Count 3.18 M/mcL (3.82-4.97); Red Cell Distribution Width 14.4 % (11.5-14.5)
[2018-02-23 06:34] LABS: INR 1.2; Prothrombin Time 13.5 Seconds (9.4-12.1)
[2018-02-23 06:40] LABS: Alanine Aminotransferase 53 Units/L (7-52); Albumin 3.3 g/dL (3.5-5.7); Albumin/Globulin Ratio 1.1 (1.1-2.2); Alkaline Phosphatase 43 Units/L (34-104); Aspartate Amino Transferase 38 Units/L (13-39); BUN/Creatinine Ratio 32 (6-26); Bilirubin,Total 0.6 mg/dL (0.3-1.0); Blood Urea Nitrogen 13 mg/dL (8-23); Calcium 8.6 mg/dL (8.6-10.3); Carbon Dioxide 31 mEq/L (23-29); Chloride 100 mEq/L (98-107); Globulin 2.9 g/dL (2.4-3.5); Glucose 132 mg/dL (70-105); Osmolality,Calculated 284 (280-300); Potassium 3.7 mEq/L (3.5-5.1); Sodium 136 mEq/L (136-145); Total Protein 6.2 g/dL (6.4-8.9); eGFR For African Americans > 60 (> 60); eGFR For Non-African Americans > 60 (> 60)
--- NOTE | 2018-02-23 08:37 | Cardiothoracic Progress Note ---
Date of Encounter: 02/23/18 Time of Encounter: 08:34 - Assessment and plan (1) NSTEMI (non-ST elevated myocardial infarction) Current Visit: Yes Status: Acute Echocardiogram done yesterday revealed an ejection fraction of 40-45%. She does have tight proximal LAD and right disease and is at high risk for another infarct. Her circumflex is 100% and may not be graftable. She is at high risk for surgery given her recent infarct, decreased ventricular function and BMI of 48.8. However she is at extremely high risk for a another fatal infarct and so is scheduled for surgery for tomorrow. Operative consent was obtained. Risks of surgery include , infection, stroke, myocardial infarction, bleeding, clots around the heart, renal or respiratory failure, acute or chronic graft closure, phrenic nerve injury and sternal dehiscence. The procedure, its risks , benefits and alternatives were explained and she wishes to proceed. She and her family have no further questions. - Subjective Interval history: The patient has had no chest pain and no angina. She did require BiPAP overnight, but presently is on nasal prong oxygen. She has no complaints. Vital Signs, Last 4 Hours Temp Pulse Resp BP Pulse Ox 02/23/18 07:33 98.5 F 93 17 160/95 99 Oxgyen Flow Rate Oxygen Flow Rate (LPM) 3 Clinical Data, last 8 Hours Output, Urine Amount 800 Weight 02/21/18 02/22/18 02/23/18 23:59 23:59 23:59 Weight 120.9 kg 116.5 kg 117.1 kg Lungs are clear to percussion and auscultation. Heart is in a normal sinus rhythm. Chest x-ray is improved. - Labs 02/23/18 06:10 02/23/18 06:10 Lab Results, Last 24 hours 02/22/18 02/22/18 02/22/18 09:35 12:01 16:00 WBC Hgb 9.8 L Hct 30.0 L Plt Count INR APTT 60.3 H 50.8 H Sodium Potassium Chloride Carbon Dioxide BUN Creatinine Glucose Calcium Magnesium Total Bilirubin AST ALT Alkaline Phosphatase 02/22/18 02/23/18 02/23/18 22:43 06:10 06:10 WBC 9.7 Hgb 9.4 L Hct 28.5 L Plt Count 164 INR 1.2 APTT 54.9 H Sodium Potassium Chloride Carbon Dioxide BUN Creatinine Glucose Calcium Magnesium Total Bilirubin AST ALT Alkaline Phosphatase 02/23/18 02/23/18 06:10 06:10 WBC Hgb Hct Plt Count INR APTT 86.5 H D Sodium 136 Potassium 3.7 Chloride 100 Carbon Dioxide 31 H BUN 13 Creatinine 0.41 L Glucose 132 H Calcium 8.6 Magnesium 2.0 Total Bilirubin 0.6 AST 38 ALT 53 H Alkaline Phosphatase 43 - VTE Documentation of Mechanical Device: Graduated compression elastic hosiery Consult Discharge Plan - Plan Referrals: Nicola Vinson DO [Primary Care Provider] - 03/01/18 9:30 am Clif Augustine, MARKETING ACCOUNT EXECUTIVE [Advanced Practice Nurse] - (the office will call patient at home with follow up appointment)
[2018-02-23] MEDS ORDERED: *HR* LORazepam 1 MG TABLET PO PRN (08:42)
[2018-02-23] MEDS: Furosemide 20 MG/2 ML VIAL IVP SCH (08:47)
[2018-02-23] MEDS: Metoprolol XL (24 HR) Succ 25 MG TAB.ER.24H PO SCH (08:50)
[2018-02-23] MEDS: Aspirin 81 MG TAB.CHEW PO SCH (08:50)
[2018-02-23] MEDS ORDERED: Metoprolol XL (24 HR) Succ 25 MG TAB.ER.24H PO SCH (09:00)
[2018-02-23 09:13] LABS: Chol/HDL Ratio 4.6 (0-4.9); Cholesterol 119 mg/dL (< 200); HDL Cholesterol 26 mg/dL (40-59); LDL Cholesterol,Calculated 69 mg/dL (0-99); Triglycerides 121 mg/dL (< 150)
--- NOTE | 2018-02-23 10:36 | Cardiology Progress Note ---
Date of Encounter: 02/23/18 Time of Encounter: 09:00 Assessment and Plan (1) NSTEMI (non-ST elevated myocardial infarction) Current Visit: Yes Status: Acute Per cardiology: -Nstemi with troponin elevation up to 53. S/p C that showed severe three vessel CAD including LMCA disease. CT surgery consulted for CABG. Appreciate recommendations. -Plan for CABG tomorrow. -Currently pain free. -TTE shows severe global systolic function with EF 25-30%. Recommend repeat study later this week once stabe. TTE completed with tachycardia. -Repeat TTE with LVEF 40-45%. -Continue asa, bb, and heparin gtt. No statin due to hepatic insufficiency. -Cardiology will sign off and will follow in outpatient setting. Follow up set. (2) Heart failure, systolic, with acute decompensation Current Visit: Yes Status: Acute Per cardiology: -Acute decompensated systolic CHF with global dysfunction. EF 25-30%. CTA negative for PE. Showed acute airspace disease likely pulmonary edema, PNA could not be ruled out. -Presents with acute pulmonary edema secondary to NSTEMI. -On IV lasix. CXR repeated yesterday showed improving pulmonary edema, now mild. -Currently net negative 2600ml. -Euvolemic on exam. -Strict I&O and daily weights. -Will switch lasix to PO. -Tolerating toprol xl. No aceI due to planned CABG. (3) Anemia Current Visit: Yes Status: Acute Per cardiology: -Hgb noted to be trending downward. Hgb initially 14.9 and now 9.4. -No active signs of bleeding. Left femoral access without hematoma. May be partly due to dilution and post procedure. -Ideally heparin gtt should be continued while awaiting surgery in the setting of NSTEMI and severe LMCA and LAD disease as long as tolerated. -Management per primary service. Qualifiers: Anemia type: unspecified type Qualified Code(s): D64.9 - Anemia, unspecified Discussion w patient/family: The assessment and plan as outlined above was discussed with the patient and/or family members who expressed understanding and agreement. All questions were answered. Thank you for involving us in the care of your patient. Please call with any questions. Discussed and reviewed with Dr.John Franco. Subjective Principal diagnosis: Acute myocardial infarction Interval history: Patient denies chest pain. States shortness of breath is improved today. Objective Vital Signs, Last 4 Hours Temp Pulse Resp BP Pulse Ox 02/23/18 09:03 93 02/23/18 07:33 98.5 F 93 17 160/95 99 General: Conversant, No Apparent Distress HEENT: Atraumatic, Normocephaly, Mucus Membranes Moist Neck: No JVD, Normal carotid pulses Cardiac: Reg Rate and Rhythm, Normal S1 and S2, No Murmur Lungs: Normal Breath Sounds, No Wheeze, Rales, Rhonchi Neuro: Alert and responsive, No focal deficits noted Abdomen: Soft, Non-Tender Skin: No rashes noted on visualized skin Musculoskeletal: No Chest Wall Tenderness Extremities: No Clubbing, No Cyanosis, No Edema, Normal Pulses Results 02/23/18 06:10 02/23/18 06:10 Lab Results Impressions Chest X-Ray 02/23/18 00:01 IMPRESSION: No significant interval change in findings suggestive of mild pulmonary interstitial edema. Right IJ central venous catheter projects in unchanged position. No evidence of pneumothorax. D/ / 02/23/2018 08:11:22 Joel Richard MD / lorena Interpreting Provider: Joel Richard MD Active Medications Aspirin (Aspirin) 81 mg PO DAILY VINOD Stop: 08/22/18 13:01 Last Admin: 02/23/18 08:50 Dose: 81 mg Aspirin (Aspirin) 81 mg PO 0600 ONE Stop: 02/24/18 06:01 Chlorhexidine Gluconate (Chlorhexidine Rinse) 15 ml MM BID VINOD Stop: 02/24/18 09:01 Dextrose/Water (Dextrose 50% (Syg)) 25 ml IVP AD PRN PRN Reason: Hypoglycemia Stop: 08/22/18 11:44 Escitalopram Oxalate (Lexapro) 10 mg PO DAILY VINOD Stop: 08/24/18 11:01 Last Admin: 02/23/18 08:50 Dose: 10 mg Famotidine (Pepcid) 20 mg IVP Q12HR VINOD Stop: 08/22/18 18:01 Last Admin: 02/23/18 06:02 Dose: 20 mg Furosemide (Lasix) 20 mg PO BIDDIURETIC VINOD Stop: 08/25/18 17:01 Glucagon (Glucagen) 1 mg IM ONCE PRN PRN Reason: Hypoglycemia Stop: 08/22/18 11:44 Glucose (Gluctose) 15 gm PO ONCE PRN PRN Reason: Hypoglycemia Stop: 08/22/18 11:44 Glucose (Gluctose) 30 gm PO ONCE PRN PRN Reason: Hypoglycemia Stop: 08/22/18 11:44 Heparin Sodium (Porcine) (Heparin) 4,000 unit IVP Q6HR PRN PRN Reason: SEE COMMENTS Stop: 02/24/18 05:00 Heparin Sodium (Porcine) (Heparin) 2,000 unit IVP Q6H PRN PRN Reason: SEE COMMENTS Stop: 02/24/18 05:00 Last Admin: 02/23/18 00:46 Dose: 2,000 unit Dextrose (Dextrose 5%) 1,000 mls @ 100 mls/hr IVC .Q10H PRN PRN Reason: HYPOGLYCEMIA Stop: 08/22/18 11:44 Heparin Sodium/Dextrose (Heparin 25,000 Unit/500 Ml D5w) 25,000 unit in 500 mls @ 19.867 mls/hr IVC .Q24H VINOD; 7.3 UNIT/KG/HR PRN Reason: Protocol Stop: 02/24/18 05:00 Last Titration: 02/23/18 06:49 Dose: 13.3 unit/kg/hr, 36.2 mls/hr Dextrose/Water 30 ml/ Sodium Bicarbonate 20 meq/ Lidocaine 5 ml/ Insulin Human Regular 20 unit/ Parenteral Electrolytes 1,055.2 mls @ 0 mls/hr TH ONCE ONE PRN Reason: As Directed Stop: 02/24/18 07:46 Dextrose/Water 30 ml/ Sodium Bicarbonate 20 meq/ Lidocaine 5 ml/ Insulin Human Regular 20 unit/ Parenteral Electrolytes 1,055.2 mls @ 0 mls/hr TH ONCE ONE PRN Reason: As Directed Stop: 02/24/18 07:46 Dextrose/Water 30 ml/ Sodium Bicarbonate 20 meq/ Lidocaine 5 ml/ Insulin Human Regular 20 unit/ Parenteral Electrolytes 1,055.2 mls @ 0 mls/hr TH ONCE ONE PRN Reason: As Directed Stop: 02/24/18 07:46 Dextrose/Water 30 ml/ Sodium Bicarbonate 20 meq/ Potassium Chloride 15 meq/ Lidocaine 5 ml/ Insulin Human Regular 20 unit/ Parenteral Electrolytes 1,062.7 mls @ 0 mls/hr TH ONCE ONE PRN Reason: As Directed Stop: 02/24/18 07:46 Heparin Sodium (Porcine) 15, (000 unit/ Sodium Chloride) 503 mls @ 0 mls/hr IV ONCE ONE PRN Reason: As Directed Stop: 02/24/18 07:46 Heparin Sodium (Porcine) 15, (000 unit/ Sodium Chloride) 503 mls @ 0 mls/hr IV ONCE ONE PRN Reason: As Directed Stop: 02/24/18 07:46 Insulin Human Regular 100 unit (/ Sodium Chloride) 101 mls @ 0 mls/hr IV ONCE PRN; As Directed PRN Reason: Have available for CABG Norepinephrine Bitartrate 4 mg (/ Dextrose) 254 mls @ 0 mls/hr IVC ONCE PRN; As Directed PRN Reason: Have available for CABG Cefazolin Sodium (Ancef Syringe 3,000 Mg/30 Ml) 3,000 mg in 30 mls @ 200 mls/ hr IVPB PREOP ONE Stop: 02/24/18 06:08 Insulin Human Lispro (Humalog) 0 units SQ Q4HR VINOD PRN Reason: Protocol Stop: 08/23/18 12:01 Last Admin: 02/23/18 08:45 Dose: 4 units Lorazepam (Ativan) 1 mg PO Q4HR PRN PRN Reason: Anxiety Stop: 08/25/18 08:43 Metoprolol Succinate (Toprol Xl) 25 mg PO DAILY VINOD Stop: 08/25/18 09:01 Last Admin: 02/23/18 08:50 Dose: 25 mg Metoprolol Tartrate (Lopressor) 25 mg PO 0600 ONE Stop: 02/24/18 06:01 Naloxone HCl (Narcan) 0.4 mg IVP Q2MIN PRN PRN Reason: SEE COMMENTS Stop: 08/22/18 09:40 Potassium Phos/Sodium Phos (Neutra-Phos) 2 each PO DAILY PRN; Protocol PRN Reason: Hypophosphatemia Stop: 08/23/18 10:37 Laboratory Tests 02/23/18 02/23/18 06:10 06:10 Hgb 9.4 L Creatinine 0.41 L - Imaging and Cardiology Chest Xray: report reviewed Echo: report reviewed Cardiac cath: report reviewed - EKG Interpretation EKG results cardiology: other (Telemetry reviewed with average HR previous 12 hours noted to be 85, SR. PVCs and PACs noted.) - VTE Documentation of Mechanical Device: Graduated compression elastic hosiery Consult Discharge Plan - Plan Referrals: Nicola Vinson DO [Primary Care Provider] - 03/01/18 9:30 am Clif Augustine, MERY [Advanced Practice Nurse] - (the office will call patient at home with follow up appointment)
[2018-02-23] MEDS: Furosemide 20 MG TABLET PO SCH (16:29)
--- NOTE | 2018-02-23 17:11 | Internal Med Progress Note ---
Date of Encounter: 02/23/18 Time of Encounter: 11:00 - Assessment and plan (1) NSTEMI (non-ST elevated myocardial infarction) Current Visit: Yes Status: Acute Assessment and plan: Patient found to have elevated cardiac biomarkers status post acute hypoxic respiratory failure with shock which required pressors. Troponins were as high as 52.76 Cardiothoracic surgery with recommendation for CABG on 02/24/18 (2) Heart failure, systolic, with acute decompensation Current Visit: Yes Status: Acute Assessment and plan: Echocardiogram with LVEF of 40-45% showing global LV systolic dysfunction Cardiology following and appreciate recommendations. (3) Respiratory failure Current Visit: Yes Status: Acute Assessment and plan: Patient status post extubation and has now been transferred from ICU to [facility] care In addition, patient no longer requiring pressors for shock which has resolved Qualifiers: Chronicity: acute Respiratory failure complication: hypoxia and hypercapnia Qualified Code(s): J96.01 - Acute respiratory failure with hypoxia ; J96.02 - Acute respiratory failure with hypercapnia (4) Elevated liver enzymes Current Visit: Yes Status: Acute Assessment and plan: Patient with elevated liver enzymes suspected to be secondary to shock above. She also had history of hepatic steatosis GI consulted and appreciate recommendations (5) Hepatic steatosis Current Visit: Yes Status: Acute Assessment and plan: Patient with elevated LFTs GI following and appreciate recommendations (6) DVT prophylaxis Current Visit: Yes Status: Acute Assessment and plan: On heparin drip - Time Spent With Patient Total time spent is greater than 50% in coordination of care (as documented) at patient's floor/unit and/or counseling patient: - Subjective Interval history: Patient transferred from ICU to medical floor after being extubated due to acute hypoxic respiratory failure. Apparently patient was experiencing chest discomfort and EMS was called and found patient in respiratory distress which required intubation. Patient was brought to [facility] and was admitted to the ICU. During patient's hospital stay, she was found to have non-STEMI with troponins as high as 52.7 echocardiogram showed global dysfunction with a LVEF of 25-30%. Patient has since been extubated and cardiothoracic with recommendations for CABG on 02/24/18. - Constitutional Vitals: Temp Pulse Resp BP Pulse Ox 98.1 F 84 20 154/89 100 02/23/18 15:54 02/23/18 15:54 02/23/18 15:54 02/23/18 15:54 02/23/18 15:54 General appearance: Present: no acute distress - Respiratory Respiratory exam: Present: CTAB. Absent: accessory muscle use, rales, rhonchi, wheezes - Cardiovascular Cardiovascular exam: Present: RRR, +S1, +S2. Absent: diastolic murmur, gallop, rubs, systolic murmur Internal Medicine: Result - Labs CBC & Chem 7: 02/23/18 06:10 02/23/18 06:10 Labs: Short CBC 02/23/18 Range/Units 06:10 WBC 9.7 (4.3-11.1) K/mcL Hgb 9.4 L (11.5-15.4) g/dL Hct 28.5 L (35.3-44.9) % Plt Count 164 (140-400) K/mcL Neutrophils # 6.7 (1.6-8.9) K/mcL BMP 02/23/18 06:10 Sodium 136 Potassium 3.7 Chloride 100 Carbon Dioxide 31 H BUN 13 Creatinine 0.41 L Glucose 132 H Calcium 8.6 Liver Function 02/23/18 Range/Units 06:10 Total Bilirubin 0.6 (0.3-1.0) mg/dL AST 38 (13-39) Units/L ALT 53 H (7-52) Units/L Alkaline Phosphatase 43 (34-104) Units/L Albumin 3.3 L (3.5-5.7) g/dL - ABG Interpretation ABG results: ABG ABG pH 7.41 pH Units (7.32-7.45) 02/21/18 04:58 ABG pCO2 41 mmHg (35-45) 02/21/18 04:58 ABG pO2 117 mmHg (85-104) H 02/21/18 04:58 ABG O2 Saturation 99 % (95-98) H 02/21/18 04:58 PT/INR, D-dimer PT 13.5 Seconds (9.4-12.1) H 02/23/18 06:10 - Impressions Impressions Chest X-Ray 02/23/18 00:01 IMPRESSION: No significant interval change in findings suggestive of mild pulmonary interstitial edema. Right IJ central venous catheter projects in unchanged position. No evidence of pneumothorax. D/ / 02/23/2018 08:11:22 Joel Richard MD / [email or web address] Interpreting Provider: Joel Richard MD - VTE Documentation of Mechanical Device: Graduated compression elastic hosiery Consult Discharge Plan - Plan Referrals: Nicola Vinson DO [Primary Care Provider] - 03/01/18 9:30 am Clif Augustine, SECURITY SYSTEM ANALYST [Advanced Practice Nurse] - (the office will call patient at home with follow up appointment)
[2018-02-23] MEDS: Chlorhexidine Rinse 15 ML MOUTHWASH MM SCH (20:11)
[2018-02-24] MEDS: Insulin LISPRO 300 UNITS/3 ML VIAL SQ SCH ×2 (05:06→15:26)
[2018-02-24] MEDS: Famotidine 20 MG/2 ML VIAL IVP SCH ×2 (05:32→17:32)
[2018-02-24] MEDS ORDERED: Aspirin 81 MG TAB.CHEW PO ONE (06:00)
[2018-02-24] MEDS ORDERED: CeFAZolin Syr 3,000MG/30 ML 3,000 MG/30 ML SYRINGE IVPB ONE (06:00)
[2018-02-24 06:41] LABS: Basophils % 0.2 %; Eosinophils # 0.2 K/mcL (0.0-0.6); Eosinophils % 2.7 %; Hematocrit 25.6 % (35.3-44.9); Hemoglobin 8.7 g/dL (11.5-15.4); Immature Granulocytes % 2.5 % (0-4); Lymphocytes # 1.4 K/mcL (0.6-4.6); Lymphocytes % 16.5 %; Mean Corpuscular Hemoglobin 31.1 pg (28.0-33.3); Mean Corpuscular Volume 91.4 fL (83.0-100.0); Mean Platelet Volume 9.5 fL (9.4-12.4); Monocytes # 0.6 K/mcL (0.0-1.3); Monocytes % 7.8 %; Neutrophils # 5.7 K/mcL (1.6-8.9); Nucleated Red Blood Cells 0.4 /100 WBC (0); Platelet Count 190 K/mcL (140-400); Segmented Neutrophils % 70.3 %
[2018-02-24] MEDS ORDERED: Verapamil 5 MG/2 ML VIAL ONE (06:44)
[2018-02-24] MEDS ORDERED: *HR* FentaNYL (PF) 1,000 MCG/20 ML VIAL ONE (06:55)
[2018-02-24] MEDS ORDERED: *HR* Midazolam HCl 5 MG/5 ML VIAL IVP ONE (06:55)
[2018-02-24] MEDS ORDERED: *HR* Propofol 200 MG/20 ML VIAL IVP ONE (06:56)
[2018-02-24] MEDS ORDERED: Lidocaine 2% Syringe 100 MG/5 ML ONE (06:58)
[2018-02-24] MEDS ORDERED: *HR* Magnesium Sulfate 1 GM/2 ML VIAL ONE (06:58)
[2018-02-24] MEDS ORDERED: *HR* Rocuronium Bromide 50 MG/5 ML VIAL ONE ×2 (06:58→09:21)
[2018-02-24] MEDS ORDERED: Tranexamic Acid 1,000 MG/10 ML VIAL ONE (06:59)
[2018-02-24] MEDS ORDERED: Nitroglycerin 25 MG/250 ML INFUS..BTL IVC ONE (07:05)
--- NOTE | 2018-02-24 07:21 | Anesthesia Evaluation PreOp ---
Date of Encounter: 02/24/18 Time of Encounter: 07:18 - Past History Planned Operation: CABG Cardiac History: RI, CHF, HTN, Hyperlipidemia, Other (anemia) Pulmonary History: Other (pulmonary edema, recent intubation for hypoxic respiratory failure) STOCKFEED MILLER History: Denies Any Significant HX Other Medical History: Hepatic (hepatic steatosis), Diabetes Type II, Other ( Obesity BMI 47) Anesthesia History: No Prior Anesthetic Complications, Past Anesthesia ( hysterectomy, nilsa) : No Alcohol Use: none Drug use: none Medications and Allergies Aspirin [Adult Aspirin Regimen] 81 mg PO DAILY 02/20/18 [History] Escitalopram [Lexapro] 10 mg PO DAILY 02/20/18 [History] Lisinopril/Hydrochlorothiazide [Zestoretic 20-12.5 mg Tablet] 1 tab PO DAILY 09/09 [History] Timolol Maleate 0.25% [Timolol Maleate 0.25%] 1 drop LEFT EYE BID 02/20/18 [ History] amLODIPine [Norvasc] 5 mg PO DAILY 02/20/18 [History] metFORMIN [Glucophage] 500 mg PO 0800 02/20/18 [History] 3 Allergy/AdvReac Type Severity Reaction Status Date / Time No Known Allergies Allergy Verified 02/20/18 10:08 - Meds/Allergy Pre-op Review Medications Reviewed: Yes Allergies Reviewed: Yes Beta Blockers on Current Med List: Yes (metoprolol ) If Beta Blockers taken, Date/Time (Last Dose taken): 530 02/24/2018 Anesthesia Results - Labs 02/24/18 04:00 02/23/18 06:10 - Imaging EKG: report reviewed, image reviewed, other (sinus tachy) Chest x-ray: report reviewed, image reviewed Additional studies: Echo 02/22/2018 Impressions: LVEF 40-45%. Global LV systolic dysfunction. Indeterminate diastolic function. There is no LV thrombus. Definity echo contrast was used. RV size and function not well evaluated. Mild-moderate mitral regurgitation. Mild tricuspid regurgitation. Mild pulmonary hypertension. Left Ventricular Wall Motion: Rest Echo Findings The apex, apical inferior, mid inferior, basal inferior, apical anterior, mid anterior, basal anterior, apical septal, mid inferior septal, basal inferior septal, apical lateral, mid anterior lateral, basal anterior lateral, mid anterior septal, mid inferior lateral, basal anterior septal and basal inferior lateral thakur were hypokinetic. Findings: Study Quality * Technically challenging due to body habitus. ECG Findings * Normal sinus rhythm. Left Ventricle * LVEF 40-45%. * Indeterminate diastolic function. * Normal LV chamber size and wall thickness. * There is no LV thrombus. * Definity echo contrast was used. Right Ventricle * RV size and function not well evaluated. Suboptimal TD velocity. Left Atrium * Normal left atrial size. Right Atrium * Normal right atrial size. Aortic Valve * No aortic regurgitation. * No aortic stenosis. * Aortic valve not well visualized. Mitral Valve * Normal mitral valve structure. * No mitral stenosis. * Mild mitral annular calcification * Mild-moderate mitral regurgitation. Tricuspid Valve * Tricuspid valve not well visualized. * Mild tricuspid regurgitation. * Estimated RA pressure is 3 mmHg. * Estimated RVSP is 47 mmHg. * Mild pulmonary hypertension. Pulmonic Valve * Pulmonic valve not well visualized. * Doppler signal not well obtained. Pulmonary Artery * Pulmonary artery not well visualized. Aorta * Normally sized aortic root. * Ascending aorta not well visualized. Pericardium * There is no pericardial effusion present. Interatrial Septum * No evidence of PFO by color Doppler. [facility] 02/20/2018 Coronary Dominance:right Lesion Findings/Interventions * Left Main Coronary Artery There is a 60% stenosis in the Proximal LMCA. The lesion has severe calcification noted. * Left Anterior Descending There is a 90% stenosis in the Proximal LAD. The lesion has severe calcification noted. There is a 40% stenosis in the Mid LAD. There is a 30% stenosis in the Distal LAD. There is a 50% stenosis in the 1st Diagonal. * Circumflex There is a 100% stenosis in the Ostial/Proximal Circumflex. Mid/distal Cx and OM1 fill via L to L collaterals. * Right Coronary Artery There is a 99% stenosis in the Ostial/ Proximal RCA. The lesion has severe calcification noted. There is a 40% stenosis in the Mid RCA. There is a 30% stenosis in the Distal RCA. Anesthesia Exam Vital Signs/O2 Sat/Glucose, Most Recent Temp Pulse Resp BP Pulse Ox 98.3 F 83 16 169/85 98 02/24/18 04:02 02/24/18 04:02 02/24/18 04:02 02/24/18 04:02 02/24/18 04:02 Blood Glucose* 135 Height: 1.55 m Weight: 114 kg NPO (# of Hours): > 8 hours - HEENT Pupil (Motor): Pupils equal Mallampati: II Teeth: Poor dentition Oral Opening: Greater than 3 - STOCKFEED MILLER STOCKFEED MILLER Motor: Normal RUE, Normal LUE, Normal RLE, Normal LLE, Normal Face STOCKFEED MILLER Sensory: Normal: RUE, LUE, RLE, LLE, Face - Cardiac Rhythm: Regular Murmur: None - Pulmonary Breath Sounds: bilateral Clear Respiratory Effort: Symmetrical Anesthesia Assess/Plan ASA Score: 4 Modified [place] Scale for Level of Consciousness: Cooperative, oriented, and tranquil Anesthetic Plan: General Monitoring Plan: Standard Monitors, A-Line, PAC, RAVINDRA Recovery Plan: ICU Anes Supervising Prov Stmt: discussed diego, PAC, and RAVINDRA insertion and the associated risks, benefits, indications. All questions answered
[2018-02-24] MEDS ORDERED: Insulin Human Regular 100 UNIT in 0.9 % Sodium Chloride 100 ML IV PRN (07:45)
[2018-02-24] MEDS ORDERED: Dextrose 50 % in Water (Vial) 30 ML, Sodium Bicarbonate 20 MEQ, Potassium Chloride 15 M... TH ONE (07:45)
[2018-02-24] MEDS ORDERED: Norepinephrine 4 MG in D5% in Water 250 ML IVC PRN (07:45)
[2018-02-24] MEDS ORDERED: Heparin 15,000 UNIT in 0.9 % Sodium Chloride 500 ML IV ONE (07:45)
[2018-02-24] MEDS ORDERED: Dextrose 50 % in Water (Vial) 30 ML, Sodium Bicarbonate 20 MEQ, Lidocaine 1% 5 ML, Insu... TH ONE ×3 (07:45)
[2018-02-24] MEDS ORDERED: Mannitol 25% vial 12.5 GM/50 ML VIAL IVP ONE (07:58)
[2018-02-24] MEDS ORDERED: Sodium Bicarbonate 50 MEQ/50 ML VIAL IVC ONE (07:58)
[2018-02-24] MEDS ORDERED: Lidocaine 2% Syringe 100 MG/5 ML IV ONE (07:58)
[2018-02-24] MEDS ORDERED: *HR* Magnesium Sulfate 2 GM/50 ML PIGGYBACK IVPB ONE (07:58)
[2018-02-24] MEDS ORDERED: Albumin Human 25% 25 GM/100 ML IV.SOLN IV ONE (07:58)
[2018-02-24] MEDS ORDERED: *HR* Heparin 10,000 UNIT/10 ML VIAL IV ONE (07:58)
[2018-02-24] MEDS ORDERED: *HR* Phenylephrine 10 MG/ML VIAL IVC ONE (07:58)
[2018-02-24 08:09] LABS: ABG Base Excess 6 mEq/L (-2 to 3); ABG Chloride 100 mEq/L (98-107); ABG Glucose 128 mg/dL (60-95); ABG HCO3 35 mEq/L (21-27); ABG Oxygen Saturation 100 % (95-98); ABG PCO2 82 mmHg (35-45); ABG PH 7.23 pH Units (7.32-7.45); ABG PO2 365 mmHg (85-104); ABG TCO2 37 mEq/L (20-26)
[2018-02-24] MEDS ORDERED: Albumin Human 5% 50.0 GM/1,000 ML VIAL ONE (09:27)
[2018-02-24 09:31] LABS: ABG Base Excess 8 mEq/L (-2 to 3); ABG Chloride 97 mEq/L (98-107); ABG Glucose 146 mg/dL (60-95); ABG HCO3 32 mEq/L (21-27); ABG Ionized Calcium 1.13 mmol/L (1.15-1.35); ABG Oxygen Saturation 97 % (95-98); ABG PCO2 43 mmHg (35-45); ABG PH 7.48 pH Units (7.32-7.45); ABG PO2 81 mmHg (85-104); ABG TCO2 33 mEq/L (20-26)
[2018-02-24] MEDS ORDERED: Dexamethasone 4 MG/ML VIAL ONE (09:32)
[2018-02-24] MEDS ORDERED: Protamine Sulfate 250 MG/25 ML VIAL IVP ONE (10:13)
[2018-02-24 10:19] LABS: ABG Base Excess 9 mEq/L (-2 to 3); ABG Chloride 94 mEq/L (98-107); ABG Glucose 227 mg/dL (60-95); ABG HCO3 31 mEq/L (21-27); ABG Ionized Calcium 0.92 mmol/L (1.15-1.35); ABG PCO2 32 mmHg (35-45); ABG PO2 > 630 mmHg (85-104); ABG TCO2 32 mEq/L (20-26)
--- NOTE | 2018-02-24 10:23 | Anesthesia Procedures ---
Date of Encounter: 02/24/18 Time of Encounter: 08:00 Procedures: Anesthesia - Arterial Line Consent obtained: written consent Time out performed: Yes Sedation: Versed (mg): 2 Sedation: Fentanyl (mcg): 100 Supplemental Oxygen via Nasal Cannula (L/min): 3 Local Anesthetic: Lidocaine 1% Amount of Anesthetic used (mls): 0.2 Size (Gauge): 20 Length (inches): 1 3/4 Technique Used: sterile prep, direct puncture technique Post-Procedure: dry sterile dressing placed Patient tolerated procedure: well Complications: none Site: Radial L Vitals: see anesthesia sheet - Central Line Placement Right IJ Consent obtained: written consent Time out performed: Yes Patient placed on monitor/pulse ox: Yes prep: mask, gown, gloves Central line prep: Povidone-Iodine 1% Ultrasound used for placement: Yes Lumen Inserted: single Size / Length: 9 Fr / 10 cm Post procedure: sutured in place, good blood return, all ports aspirated, flushed, capped Patient tolerated procedure: well Complications: none Vitals: see anesthesia sheet Comments: patient with existing RIJ triple lumen central line. Prepped with iodine and guide wire inserted through brown port. Guide wire Verified in internal jugular vein with ultrasound and triple lumen removed over guide wire. Again guide wire verified in vein. Introducer inserted over wire seldinger technique. Good blood flow from port. PAC inserted using pressure waveform analysis. Secured at 42 cm
[2018-02-24] MEDS ORDERED: Ondansetron 4 MG/2 ML VIAL ONE (10:24)
[2018-02-24 10:26] LABS: VBG Base Excess 8 mEq/L; VBG Chloride 95 mEq/L (98-107); VBG Glucose 207 mg/dl (65-95); VBG HCO3 31 mEq/L (21-27); VBG Ionized Calcium 0.96 mmol/L (1.15-1.35); VBG Oxygen Saturation 70 %; VBG PCO2 36 mmHg (41-51); VBG PH 7.55 pH Units (7.32-7.42); VBG PO2 32 mmHg (25-50); VBG Total CO2 32 mEq/L
[2018-02-24 10:59] LABS: ABG Base Excess 8 mEq/L (-2 to 3); ABG Chloride 95 mEq/L (98-107); ABG Glucose 184 mg/dL (60-95); ABG HCO3 32 mEq/L (21-27); ABG Ionized Calcium 0.88 mmol/L (1.15-1.35); ABG Oxygen Saturation 100 % (95-98); ABG PCO2 39 mmHg (35-45); ABG PH 7.52 pH Units (7.32-7.45); ABG PO2 584 mmHg (85-104); ABG TCO2 33 mEq/L (20-26)
[2018-02-24 11:21] LABS: ABG Base Excess 7 mEq/L (-2 to 3); ABG Chloride 95 mEq/L (98-107); ABG Glucose 183 mg/dL (60-95); ABG HCO3 32 mEq/L (21-27); ABG Ionized Calcium 0.83 mmol/L (1.15-1.35); ABG Oxygen Saturation 96 % (95-98); ABG PCO2 45 mmHg (35-45); ABG PH 7.46 pH Units (7.32-7.45); ABG PO2 76 mmHg (85-104); ABG TCO2 33 mEq/L (20-26)
[2018-02-24] MEDS ORDERED: 0.9 % Sodium Chloride 1,000 ML ONE (11:42)
[2018-02-24 11:47] LABS: ABG Base Excess 7 mEq/L (-2 to 3); ABG Chloride 100 mEq/L (98-107); ABG Glucose 128 mg/dL (60-95); ABG HCO3 31 mEq/L (21-27); ABG Ionized Calcium 1.42 mmol/L (1.15-1.35); ABG Oxygen Saturation 97 % (95-98); ABG PCO2 42 mmHg (35-45); ABG PH 7.48 pH Units (7.32-7.45); ABG PO2 81 mmHg (85-104); ABG TCO2 33 mEq/L (20-26)
[2018-02-24] MEDS ORDERED: *HR* Dextrose 50 % in Water (Syg) 50 ML SYRINGE IVP PRN (11:48)
[2018-02-24] MEDS ORDERED: Acetaminophen 325 MG TABLET PO PRN (11:48)
[2018-02-24] MEDS ORDERED: *HR* Promethazine 25 MG/ML VIAL IVP PRN (11:48)
[2018-02-24] MEDS ORDERED: Ondansetron 4 MG/2 ML VIAL IVP PRN (11:48)
[2018-02-24] MEDS ORDERED: Insulin Regular, Human 100 UNIT/ML IV PRN (11:48)
[2018-02-24] MEDS ORDERED: Potassium Chloride 40 MEQ/200 ML BAG IVPB PRN (11:48)
[2018-02-24] MEDS ORDERED: 0.9 % Sodium Chloride w KCl 20 MEQ/1,000 ML MLS IVC SCH (12:00)
[2018-02-24] MEDS: Nitroglycerin 25 MG/250 ML INFUS..BTL IVC SCH ×2 (12:10→18:54)
[2018-02-24] MEDS: Insulin Human Regular 100 UNIT in 0.9 % Sodium Chloride 100 ML IVC SCH (12:10)
[2018-02-24 12:34] LABS: Lymphocytes % 10.6 %; Nucleated Red Blood Cells 0.4 /100 WBC (0)
[2018-02-24 12:36] LABS: Basophils % 0.3 %; Eosinophils # 0.1 K/mcL (0.0-0.6); Eosinophils % 1.3 %; Hematocrit 23.4 % (35.3-44.9); Immature Granulocytes % 4.7 % (0-4); Immature Platelets 2.5 % (1.1-6.1); Mean Corpuscular HGB Conc 34.2 g/dL (31.6-35.5); Mean Corpuscular Volume 87.6 fL (83.0-100.0); Mean Platelet Volume 8.8 fL (9.4-12.4); Monocytes # 0.8 K/mcL (0.0-1.3); Monocytes % 6.9 %; Neutrophils # 8.2 K/mcL (1.6-8.9); Red Blood Count 2.67 M/mcL (3.82-4.97); Red Cell Distribution Width 13.8 % (11.5-14.5); Segmented Neutrophils % 76.2 %
--- NOTE | 2018-02-24 12:39 | Operative Note ---
Date of procedure: 02/24/18 Was there an nurses medical assistants phlebotomists present: Yes Automatic Spinning Lathe Setter: Navarro Alexander Estimated blood loss (cc): 750 Specimen: none Condition: critical Disposition: ICU Procedure in Detail: Preoperative diagnosis. Coronary artery disease. Postoperative diagnosis. Same. Procedure. Coronary artery bypass grafting 2 with the left internal mammary artery to the LAD and a saphenous vein graft to the main right coronary artery. Surgeon. Dr. Candido Almaraz. Patient is a 62-year-old female who presented last weekend with an acute myocardial infarction. Troponin went to 53. She did have some element of cardiogenic shock and required a norepinephrine drip for blood pressure support. She also had pulmonary edema and was intubated. Cardiac catheterization revealed severe triple vessel disease and she was referred for surgery. Preoperatively, her hemoglobin was 8.7 and she did have a left groin hematoma from her cardiac catheterization. In addition. She had some element of chronic liver disease due to fatty infiltration. She was brought to the operating room where she was prepped and draped in standard fashion. The right greater saphenous vein was harvested from below the right knee to the right groin. This was done through 2 small incisions using the scope. Standard median sternotomy was performed. The left internal mammary artery retractor was inserted and the left internal mammary artery was harvested in standard fashion using the Bovie electrocoagulation. Mammary retractor was removed and the standard sternal bonsai tender was inserted. Pericardium was opened in the midline and suspended with 2-0 silk stay sutures. A double pursestring of 200 Surgilon was placed in the aorta for the aortic cannulation site. A pursestring of 20 Surgilon was placed in the right atrial appendage for the venous uptake. The patient was heparinized. The aorta was cannulated without difficulty. 2 stage venous uptake cannula was inserted through the right atrial appendage. A pursestring of 3-0 silk was placed in the aorta. The cardioplegia needle was inserted through here. This was also used as an active and passive aortic vent. The patient was placed on cardiopulmonary bypass and cooled to 34.6 degrees. The aorta was crossclamped and a liter of antegrade cardioplegia was given. Topical cooling with iced saline slush was also done. Attention was first turned to the circumflex. The circumflex coronary artery was too small and diffusely diseased for grafting. Attention was next turned to the right coronary artery. The posterior descending branches were too small and diffusely diseased for grafting. The distal main right coronary artery was dissected free with the Smyth blade and opened with a Smyth blade and the Bonilla scissors. This had a lumen of 1-1/2 mm and had mild to moderate diffuse disease. A standard end-to-side anastomosis was constructed using the saphenous vein and a 7-0 Prolene. When this is completed, the patient received the last dose of antegrade cardioplegia. Mammary pedicle was harvested. Tonsil clamp was placed distally and was divided with the Metzenbaum scissors. Distal end was tied over the 2-0 silk suture. Proximal end was trimmed and brought into the wound. The LAD was dissected free with the Smyth blade and opened with a Smyth blade and the Bonilla scissors. A standard end-to-side anastomosis was constructed using the mammary artery and a 7-0 Prolene. When this is completed, the previously placed bulldog clamp was removed and the hemostasis was good. Pedicle was tacked the surface of the heart using 2 interrupted 5-0 silk sutures. Cross- clamp was removed and rewarming was begun. Total cross-clamp time was 36 minutes. A side-biting clamp was placed on the aorta and the cardioplegia needle was removed. A hole was made in the aorta using the Smyth blade and the 4.4 mm aortic punch. A standard end-to-side anastomosis was constructed using the saphenous vein and a 5-0 Prolene. When this was completed, the side- biting clamp was removed. The graft was de-aired using #25-gauge needle and the previously placed bulldog clamp was removed. Distal anastomoses were inspected and found to be hemostatic. Proximal anastomosis was marked with a marker from [employer] sponge. I did place some FloSeal around the distal and proximal anastomoses. A pair of ventricular pacing wires was left. A 32 right angle chest tube to the left pleural space. A 32 right angle chest tube to the pericardial well. A 42 mediastinal chest tube. The patient was weaned from bypass and decannulated. Protamine was given. Hemostasis was good and the hemodynamics were good. Pericardium was loosely closed using interrupted 2-0 silk sutures. We did use platelet rich and platelet poor plasma on the sternum and tissues above the sternum. Sternum was closed with #7 sternal wires in simple and [id number] fashion. Fascial was run using a #1 Vicryl. Subcutaneous tissues with a 2-0 Vicryl. Skin was closed with a 3-0 Vicryl subcuticular stitch. The patient tolerated the procedure well and was returned intensive care unit in satisfactory and stable condition. Total bypass time 68 minutes. Total cross-clamp time 36 minutes. She been cooled to 34.6 degrees.
[2018-02-24 12:40] LABS: ABG Base Excess 7 mEq/L (-2 to 3); ABG HCO3 32 mEq/L (21-27); ABG Oxygen Saturation 100 % (95-98); ABG PCO2 48 mmHg (35-45); ABG PH 7.43 pH Units (7.32-7.45); ABG PO2 344 mmHg (85-104); ABG TCO2 34 mEq/L (20-26); Blood Gas Modality ASSIST CONTROL; Blood Gas Respiration Rate 12; Blood Gas VT 500 cc
[2018-02-24 12:41] LABS: INR 1.6
[2018-02-24] MEDS: *HR* FentaNYL (PF) 100 MCG/2 ML VIAL IVP PRN ×3 (12:43→22:46)
[2018-02-24 12:46] LABS: Activated Partial Thrombo Time 30.3 Seconds (26.0-36.0)
[2018-02-24 12:47] LABS: Prothrombin Time 17.6 Seconds (9.4-12.1)
[2018-02-24 12:58] LABS: BUN/Creatinine Ratio 26 (6-26); Blood Urea Nitrogen 9 mg/dL (8-23); Calcium 8.8 mg/dL (8.6-10.3); Carbon Dioxide 32 mEq/L (23-29); Chloride 104 mEq/L (98-107); Glucose 122 mg/dL (70-105); Magnesium 2.8 mg/dL (1.6-2.6); Osmolality,Calculated 290 (280-300); Potassium 3.5 mEq/L (3.5-5.1); Sodium 140 mEq/L (136-145); eGFR For African Americans > 60 (> 60); eGFR For Non-African Americans > 60 (> 60)
[2018-02-24 13:04] LABS: Lymphocytes # 1.1 K/mcL (0.6-4.6); Platelet Count 95 K/mcL (140-400)
[2018-02-24] MEDS: *HR* OxyCODONE/APAP 5/325 TABLET PO PRN ×2 (13:04→19:53)
[2018-02-24] MEDS: 0.9 % Sodium Chloride w KCl 20 MEQ/1,000 ML MLS IVC SCH (13:15)
--- NOTE | 2018-02-24 13:20 | Anesthesia Evaluation Post Op ---
Date of Encounter: 02/24/18 Time of Encounter: 13:18 - Vital Signs Vital Signs: Vital Signs/O2 Sat/Glucose, Most Recent Temp Pulse Resp BP Pulse Ox 98.3 F 83 16 169/85 98 02/24/18 04:02 02/24/18 04:02 02/24/18 12:48 02/24/18 04:02 02/24/18 12:48 Blood Glucose* 135 - Lungs Lungs: Rales - Airway Airway: Intubated - Cardiovascular Regular Rate - Mental Status Mental Status: Sedated - Pain Pain Scale used: Peg (Faces) - Nausea Vomiting Nausea Vomiting: Not Present - Hydration Hydration: NPO - Discharge Attestation: patient intubated and sedated in ICU. remains in stable but critical condition.
[2018-02-24] MEDS: Aspirin 81 MG TAB.CHEW PO SCH (13:55)
[2018-02-24] MEDS: Furosemide 20 MG TABLET PO SCH ×2 (13:55→19:46)
[2018-02-24] MEDS: Metoprolol XL (24 HR) Succ 25 MG TAB.ER.24H PO SCH (13:56)
[2018-02-24] MEDS: Chlorhexidine Rinse 15 ML MOUTHWASH MM SCH ×2 (13:56→19:48)
[2018-02-24] MEDS: niCARdipine 40 MG/200 ML MLS IVC SCH ×2 (14:59→23:24)
[2018-02-24 16:23] LABS: ABG Base Excess 6 mEq/L (-2 to 3); ABG HCO3 34 mEq/L (21-27); ABG Oxygen Saturation 92 % (95-98); ABG PCO2 66 mmHg (35-45); ABG PH 7.32 pH Units (7.32-7.45); ABG PO2 73 mmHg (85-104); ABG TCO2 36 mEq/L (20-26); Blood Gas Modality ASSIST CONTROL; Blood Gas Pressure Support 8 cm H2O
[2018-02-24] MEDS: Norepinephrine 4 MG in D5% in Water 250 ML IVC SCH (17:30)
--- NOTE | 2018-02-24 17:49 | Event Note ---
Date of Encounter: 02/24/18 Time of Encounter: 00:00 Patients care will be transferred to cardiothoracic service status post CABG Hospitalist service will sign off
[2018-02-24 18:12] LABS: Hematocrit 30.3 % (35.3-44.9)
[2018-02-24 18:13] LABS: Hemoglobin 10.5 g/dL (11.5-15.4)
[2018-02-24 19:17] LABS: ABG Base Excess 7 mEq/L (-2 to 3); ABG HCO3 33 mEq/L (21-27); ABG Oxygen Saturation 97 % (95-98); ABG PCO2 55 mmHg (35-45); ABG PH 7.39 pH Units (7.32-7.45); ABG PO2 92 mmHg (85-104); ABG TCO2 35 mEq/L (20-26); Blood Gas Modality NIV
[2018-02-25] MEDS: niCARdipine 40 MG/200 ML MLS IVC SCH ×2 (01:15→11:52)
[2018-02-25] MEDS: *HR* OxyCODONE/APAP 5/325 TABLET PO PRN ×4 (02:20→20:44)
[2018-02-25] MEDS: Nitroglycerin 25 MG/250 ML INFUS..BTL IVC SCH ×4 (03:17→23:06)
[2018-02-25 03:28] LABS: Basophils % 0.1 %; Hematocrit 26.6 % (35.3-44.9); Hemoglobin 9.3 g/dL (11.5-15.4); Immature Granulocytes % 2.6 % (0-4); Immature Platelets 3.1 % (1.1-6.1); Lymphocytes # 1.2 K/mcL (0.6-4.6); Mean Corpuscular Hemoglobin 31.2 pg (28.0-33.3); Mean Corpuscular Volume 89.3 fL (83.0-100.0); Mean Platelet Volume 9.2 fL (9.4-12.4); Monocytes # 0.9 K/mcL (0.0-1.3); Neutrophils # 10.9 K/mcL (1.6-8.9); Nucleated Red Blood Cells 0.3 /100 WBC (0); Platelet Count 120 K/mcL (140-400); Red Blood Count 2.98 M/mcL (3.82-4.97); Segmented Neutrophils % 81.3 %
[2018-02-25 03:48] LABS: BUN/Creatinine Ratio 25 (6-26); Blood Urea Nitrogen 12 mg/dL (8-23); Calcium 8.2 mg/dL (8.6-10.3); Carbon Dioxide 29 mEq/L (23-29); Chloride 104 mEq/L (98-107); Glucose 139 mg/dL (70-105); INR 1.2; Magnesium 2.1 mg/dL (1.6-2.6); Osmolality,Calculated 290 (280-300); Potassium 3.9 mEq/L (3.5-5.1); Sodium 139 mEq/L (136-145); eGFR For African Americans > 60 (> 60); eGFR For Non-African Americans > 60 (> 60)
[2018-02-25 03:51] LABS: Activated Partial Thrombo Time 25.8 Seconds (26.0-36.0)
[2018-02-25] MEDS: 0.9 % Sodium Chloride w KCl 20 MEQ/1,000 ML MLS IVC SCH (05:13)
[2018-02-25] MEDS: Famotidine 20 MG/2 ML VIAL IVP SCH ×2 (05:13→16:39)
[2018-02-25] MEDS: Insulin Human Regular 100 UNIT in 0.9 % Sodium Chloride 100 ML IVC SCH (05:13)
[2018-02-25] MEDS: *HR* FentaNYL (PF) 100 MCG/2 ML VIAL IVP PRN (05:29)
--- NOTE | 2018-02-25 07:09 | Cardiothoracic Progress Note ---
Date of Encounter: 02/25/18 Time of Encounter: :07 - Assessment and plan (1) NSTEMI (non-ST elevated myocardial infarction) Current Visit: Yes Status: Acute We will check a stat portable chest x-ray. We will discontinue the IV fluids, arterial line, Hampton-Dominic catheter and Richey catheter. We will leave the patient in the ICU today for pulmonary toilet and blood pressure control. - Subjective Interval history: The patient is extubated. She has mild postoperative pain. Vital Signs, Last 4 Hours Temp Pulse Resp BP Pulse Ox 02/25/18 06:00 98.3 F 101 18 137/59 93 02/25/18 05:00 97.9 F 97 15 132/54 95 02/25/18 04:21 17 129/56 94 02/25/18 04:00 97.9 F 93 14 132/56 95 Oxgyen Flow Rate Oxygen Flow Rate (LPM) 4 Clinical Data, last 8 Hours Output, Chest Tube Drainage 8 Amount [#3] Output, Chest Tube Drainage 5 Amount [#3] Output, Chest Tube Drainage 6 Amount [#3] Output, Chest Tube Drainage 0 Amount [#3] Output, Chest Tube Drainage 0 Amount [#3] Output, Chest Tube Drainage 0 Amount [#2] Output, Chest Tube Drainage 0 Amount [#2] Output, Chest Tube Drainage 10 Amount [#2] Output, Chest Tube Drainage 11 Amount [#2] Output, Chest Tube Drainage 0 Amount [#2] Output, Chest Tube Drainage 18 Amount [#1] Output, Chest Tube Drainage 16 Amount [#1] Output, Chest Tube Drainage 12 Amount [#1] Output, Chest Tube Drainage 0 Amount [#1] Output, Chest Tube Drainage 0 Amount [#1] Weight 02/23/18 02/24/18 02/25/18 23:59 23:59 23:59 Weight 114.8 kg Lungs are clear to percussion and auscultation. Heart is in a normal sinus rhythm. All incisions are healing well without signs of infection and the sternum is stable. Chest tube drainage is minimal and there is no air leak. The chest tubes and pacing wires were removed. - Labs 02/25/18 03:12 02/25/18 03:12 Lab Results, Last 24 hours 07/05/18 07/05/18 07/05/18 12:29 12:29 12:29 WBC 10.8 Hgb 8.0 L Hct 23.4 L Plt Count 95 L INR 1.6 APTT 30.3 D Sodium 140 Potassium 3.5 Chloride 104 Carbon Dioxide 32 H BUN 9 Creatinine 0.34 L Glucose 122 H Calcium 8.8 Magnesium 2.8 H 02/24/18 02/24/18 02/25/18 18:00 18:00 03:12 WBC 13.4 H Hgb 10.5 L D 9.3 L Hct 30.3 L 26.6 L Plt Count 120 L INR APTT Sodium Potassium 4.1 Chloride Carbon Dioxide BUN Creatinine Glucose Calcium Magnesium 02/25/18 02/25/18 03:12 03:12 WBC Hgb Hct Plt Count INR 1.2 APTT 25.8 L Sodium 139 Potassium 3.9 Chloride 104 Carbon Dioxide 29 BUN 12 Creatinine 0.48 L Glucose 139 H Calcium 8.2 L Magnesium 2.1 - VTE Documentation of Mechanical Device: Graduated compression elastic hosiery Consult Discharge Plan - Plan Referrals: Nicola Vinson DO [Primary Care Provider] - 03/01/18 9:30 am Clif Augustine, PATENT SEARCHER [Advanced Practice Nurse] - (the office will call patient at home with follow up appointment)
[2018-02-25] MEDS: Lacri-Lube 3.5 GM TUBE BOTH EYES SCH (07:21)
[2018-02-25] MEDS: Chlorhexidine Rinse 15 ML MOUTHWASH MM SCH ×2 (07:30→20:44)
[2018-02-25] MEDS: Aspirin 81 MG TAB.CHEW PO SCH (07:30)
[2018-02-25] MEDS: Metoprolol XL (24 HR) Succ 25 MG TAB.ER.24H PO SCH (07:30)
[2018-02-25] MEDS: Furosemide 20 MG/2 ML VIAL IVP SCH ×2 (07:30→16:39)
[2018-02-25] MEDS: Norepinephrine 4 MG in D5% in Water 250 ML IVC SCH (11:53)
--- NOTE | 2018-02-25 11:58 | Electrocardiograph Report ---
[address] [place], [place] [address] Test Date: 2018-02-24 Pat Name: Heidi Jean Department: 109 Room: [facility] Gender: F Medical Staff Credentialing Coordinator: STEVE : 1955 Requested By: Candido Almaraz Order Number: [id number] Reading MD: Alejandro Hope Measurements Intervals Decker Rate: 69 P: 64 NV: 153 QRS: 14 QRSD: 85 T: 44 QT: 430 QTc: 450 Interpretive Statements SINUS RHYTHM Electronically Signed On 02-25-2018 11:55:56 EDT by Alejandro Hope
[2018-02-25] MEDS ORDERED: Dextrose Gel 15 GM/37.5 ML TUBE PO PRN ×2 (12:11)
[2018-02-25] MEDS ORDERED: D5% in Water 1,000 ML IVC PRN (12:11)
[2018-02-25] MEDS ORDERED: *HR* Dextrose 50 % in Water (Syg) 50 ML SYRINGE IVP PRN (12:11)
[2018-02-25 14:41] LABS: Smooth Muscle Ab Titer IgG <1:20 (<1:20)
[2018-02-25 15:15] LABS: Immunoglobulin G Subclass 1 549 mg/dL (240-1118); Immunoglobulin G Subclass 2 232 mg/dL (124-549); Immunoglobulin G Subclass 3 44 mg/dL (21-134); Immunoglobulin G Subclass 4 34 mg/dL (1-123)
[2018-02-25] MEDS: Insulin LISPRO 300 UNITS/3 ML VIAL SQ SCH ×2 (16:07→20:44)
[2018-02-25] MEDS: *HR* Heparin 5,000 UNIT/ML VIAL SQ SCH (16:40)
[2018-02-26] MEDS: *HR* OxyCODONE/APAP 5/325 TABLET PO PRN ×5 (03:13→21:26)
[2018-02-26 03:23] LABS: Basophils % 0.2 %; Eosinophils # 0.1 K/mcL (0.0-0.6); Eosinophils % 0.5 %; Hematocrit 24.8 % (35.3-44.9); Immature Granulocytes % 3.8 % (0-4); Lymphocytes % 14.6 %; Mean Corpuscular HGB Conc 33.1 g/dL (31.6-35.5); Mean Corpuscular Volume 90.8 fL (83.0-100.0); Mean Platelet Volume 9.5 fL (9.4-12.4); Monocytes # 1.2 K/mcL (0.0-1.3); Monocytes % 8.3 %; Neutrophils # 10.1 K/mcL (1.6-8.9); Nucleated Red Blood Cells 0.6 /100 WBC (0); Platelet Count 143 K/mcL (140-400); Red Blood Count 2.73 M/mcL (3.82-4.97); Red Cell Distribution Width 14.9 % (11.5-14.5); Segmented Neutrophils % 72.6 %
[2018-02-26 03:26] LABS: Hemoglobin 8.2 g/dL (11.5-15.4)
[2018-02-26 03:43] LABS: BUN/Creatinine Ratio 29 (6-26); Blood Urea Nitrogen 12 mg/dL (8-23); Calcium 7.8 mg/dL (8.6-10.3); Carbon Dioxide 27 mEq/L (23-29); Chloride 96 mEq/L (98-107); Glucose 279 mg/dL (70-105); Osmolality,Calculated 284 (280-300); Potassium 3.8 mEq/L (3.5-5.1); Sodium 132 mEq/L (136-145); eGFR For African Americans > 60 (> 60); eGFR For Non-African Americans > 60 (> 60)
[2018-02-26] MEDS: *HR* Heparin 5,000 UNIT/ML VIAL SQ SCH ×2 (05:47→16:16)
[2018-02-26] MEDS: Famotidine 20 MG/2 ML VIAL IVP SCH ×2 (05:47→16:16)
--- NOTE | 2018-02-26 07:22 | Cardiothoracic Progress Note ---
Date of Encounter: 02/26/18 Time of Encounter: 07:20 - Assessment and plan (1) NSTEMI (non-ST elevated myocardial infarction) Current Visit: Yes Status: Acute The patient remained hemodynamic stable overnight. She remains extubated and is breathing comfortably. She has been able to sit in a chair without difficulty. He will begin ambulating in the ICU later today. The assessment and plan as outlined above was discussed with the patient and/or family members who expressed understanding and agreement. All questions were answered. - Subjective Procedure(s) Performed: POD#2 S/P CABG2 Interval history: The patient remained hemodynamically stable overnight. She is breathing comfortably. She has no complaints. Vital Signs, Last 4 Hours Pulse Resp BP Pulse Ox 02/26/18 07:00 95 18 139/69 97 02/26/18 06:00 97 24 133/59 97 02/26/18 05:00 98 24 109/69 95 02/26/18 04:50 20 94 02/26/18 04:00 88 24 125/61 94 Oxgyen Flow Rate Oxygen Flow Rate (LPM) 4 Clinical Data, last 8 Hours Output, Urine Amount 0 Weight 02/24/18 02/25/18 02/26/18 23:59 23:59 23:59 Weight 117.2 kg - Physical Examination General: Conversant, No Apparent Distress Neck: No JVD, Normal carotid pulses Cardiac: Reg Rate and Rhythm, Normal S1 and S2, No Murmur Incision: No signs of infection, Dry/intact dressing Sternum: Stable Lungs: Normal Breath Sounds, No Wheeze, Rales, Rhonchi Neuro: Alert and responsive, No focal deficits noted Vascular: Normal capillary refill Extremities: No Clubbing, No Cyanosis, No Edema - Labs 02/26/18 03:00 02/26/18 03:00 Lab Results, Last 24 hours 02/26/18 02/26/18 03:00 03:00 WBC 13.9 H Hgb 8.2 L Hct 24.8 L Plt Count 143 Sodium 132 L Potassium 3.8 Chloride 96 L Carbon Dioxide 27 BUN 12 Creatinine 0.41 L Glucose 279 H Calcium 7.8 L - VTE Documentation of Mechanical Device: Intermittent pneumatic compression device Consult Discharge Plan - Plan Referrals: Nicola Vinson DO [Primary Care Provider] - 03/01/18 9:30 am Clif Augustine CNP [Advanced Practice Nurse] - (the office will call patient at home with follow up appointment)
[2018-02-26] MEDS: Insulin LISPRO 300 UNITS/3 ML VIAL SQ SCH ×4 (07:38→20:24)
[2018-02-26] MEDS: niCARdipine 40 MG/200 ML MLS IVC SCH ×2 (07:42→11:15)
[2018-02-26] MEDS: Nitroglycerin 25 MG/250 ML INFUS..BTL IVC SCH ×3 (07:42→21:29)
[2018-02-26] MEDS: Metoprolol XL (24 HR) Succ 25 MG TAB.ER.24H PO SCH (07:48)
[2018-02-26] MEDS: Aspirin 81 MG TAB.CHEW PO SCH (07:49)
[2018-02-26] MEDS: Chlorhexidine Rinse 15 ML MOUTHWASH MM SCH ×2 (07:49→21:26)
[2018-02-26] MEDS: Furosemide 20 MG/2 ML VIAL IVP SCH ×2 (07:50→16:16)
[2018-02-26] MEDS: Norepinephrine 4 MG in D5% in Water 250 ML IVC SCH (09:32)
[2018-02-26 10:59] LABS: ANA IgG by ELISA DETECTED (None Detected)
[2018-02-26 11:17] LABS: Celiac Disease Dual Antigen 10 Units (0-19)
[2018-02-27] MEDS ORDERED: Amiodarone Premix 360 MG/200 ML BAG IVC ONE (01:45)
[2018-02-27] MEDS ORDERED: Amiodarone Premix 150 MG/100 ML BAG IVPB ONE (01:45)
[2018-02-27] MEDS: Nitroglycerin 25 MG/250 ML INFUS..BTL IVC SCH (05:48)
[2018-02-27] MEDS: Famotidine 20 MG/2 ML VIAL IVP SCH ×2 (05:52→17:12)
[2018-02-27] MEDS: *HR* Heparin 5,000 UNIT/ML VIAL SQ SCH ×2 (05:52→17:14)
[2018-02-27] MEDS: niCARdipine 40 MG/200 ML MLS IVC SCH ×4 (07:40→21:26)
[2018-02-27] MEDS: Aspirin 81 MG TAB.CHEW PO SCH (07:53)
[2018-02-27] MEDS: Metoprolol XL (24 HR) Succ 25 MG TAB.ER.24H PO SCH (07:54)
[2018-02-27] MEDS: Furosemide 20 MG/2 ML VIAL IVP SCH ×2 (07:54→17:12)
[2018-02-27] MEDS: Chlorhexidine Rinse 15 ML MOUTHWASH MM SCH ×2 (07:54→20:25)
[2018-02-27] MEDS: Insulin LISPRO 300 UNITS/3 ML VIAL SQ SCH ×4 (07:55→20:26)
--- NOTE | 2018-02-27 09:06 | Cardiothoracic Progress Note ---
Date of Encounter: 02/27/18 Time of Encounter: 09:03 - Assessment and plan (1) NSTEMI (non-ST elevated myocardial infarction) Current Visit: Yes Status: Acute The patient remained hemodynamic stable overnight. She is breathing comfortably. She has been able to sit in a chair and ambulate in the ICU yesterday without difficulty. She had transient atrial fibrillation early this morning, but converted to normal sinus rhythm with amiodarone. She remains in normal sinus rhythm currently. The patient will be monitored in the ICU today. The assessment and plan as outlined above was discussed with the patient and/ or family members who expressed understanding and agreement. All questions were answered. - Subjective Procedure(s) Performed: POD#3 S/P CABG2 Interval history: The patient remained hemodynamically stable overnight. She is breathing comfortably. She has no complaints. She had transient atrial fibrillation last night; however, converted to normal sinus rhythm with medical therapy. Vital Signs, Last 4 Hours Temp Pulse Resp BP Pulse Ox 02/27/18 08:01 98.4 F 02/27/18 07:39 94 12 137/72 95 02/27/18 06:00 98 22 136/94 94 02/27/18 05:29 16 94 Oxgyen Flow Rate Oxygen Flow Rate (LPM) 3 Clinical Data, last 8 Hours Output, Urine Amount 0 Output, Urine Amount 350 Output, Urine Amount 0 Weight 02/25/18 02/26/18 02/27/18 23:59 23:59 23:59 Weight 117.2 kg 118.4 kg - Physical Examination General: Conversant, No Apparent Distress Neck: No JVD, Normal carotid pulses Cardiac: Reg Rate and Rhythm, Normal S1 and S2, No Murmur Incision: No signs of infection, Dry/intact dressing Sternum: Stable Lungs: Normal Breath Sounds, No Wheeze, Rales, Rhonchi Neuro: Alert and responsive, No focal deficits noted Vascular: Normal capillary refill Extremities: No Clubbing, No Cyanosis, No Edema - Labs 02/26/18 03:00 02/26/18 03:00 - VTE Documentation of Mechanical Device: Graduated compression elastic hosiery Consult Discharge Plan - Plan Referrals: Nicola Vinson DO [Primary Care Provider] - 03/01/18 9:30 am Clif Augustine, BAND TACKER [Advanced Practice Nurse] - (the office will call patient at home with follow up appointment)
[2018-02-27] MEDS: Amiodarone Premix 360 MG/200 ML BAG IVC SCH ×2 (09:45→20:25)
[2018-02-27] MEDS: Norepinephrine 4 MG in D5% in Water 250 ML IVC SCH (11:30)
[2018-02-27] MEDS ORDERED: Metoprolol XL (24 HR) Succ 25 MG TAB.ER.24H PO ONE (12:15)
[2018-02-27] MEDS: *HR* OxyCODONE/APAP 5/325 TABLET PO PRN (14:15)
[2018-02-28] MEDS: Famotidine 20 MG/2 ML VIAL IVP SCH (05:41)
[2018-02-28] MEDS: *HR* Heparin 5,000 UNIT/ML VIAL SQ SCH ×2 (05:41→17:04)
--- NOTE | 2018-02-28 07:12 | Cardiothoracic Progress Note ---
Date of Encounter: 02/28/18 Time of Encounter: 07:10 - Assessment and plan (1) NSTEMI (non-ST elevated myocardial infarction) Current Visit: Yes Status: Acute The patient remained hemodynamic stable overnight. She is breathing comfortably. She has been able to sit in a chair and ambulate in the ICU without difficulty. She remains in normal sinus rhythm on an amiodarone drip. This will be converted to oral amiodarone today. She will be transferred to the stepdown unit later today. The assessment and plan as outlined above was discussed with the patient and/or family members who expressed understanding and agreement. All questions were answered. - Subjective Procedure(s) Performed: POD#4 S/P CABG2 Interval history: The patient remained hemodynamically stable overnight. She is breathing comfortably. She has no complaints. She remains in normal sinus rhythm on an amiodarone drip.. Vital Signs, Last 4 Hours Temp Pulse Resp BP Pulse Ox 02/28/18 05:00 82 18 131/62 97 02/28/18 04:35 18 140/70 97 02/28/18 04:00 98.2 F 84 20 140/70 97 Oxgyen Flow Rate Oxygen Flow Rate (LPM) 3 Clinical Data, last 8 Hours Output, Urine Amount 375 Output, Urine Amount 0 Output, Urine Amount 0 Weight 02/26/18 02/27/18 02/28/18 23:59 23:59 23:59 Weight 118.4 kg 118.1 kg - Physical Examination General: Conversant, No Apparent Distress Neck: No JVD, Normal carotid pulses Cardiac: Reg Rate and Rhythm, Normal S1 and S2, No Murmur Incision: No signs of infection, Dry/intact dressing Sternum: Stable Lungs: Normal Breath Sounds, No Wheeze, Rales, Rhonchi Neuro: Alert and responsive, No focal deficits noted Vascular: Normal capillary refill Extremities: No Clubbing, No Cyanosis, No Edema - Labs 02/26/18 03:00 02/26/18 03:00 - VTE Documentation of Mechanical Device: Graduated compression elastic hosiery Consult Discharge Plan - Plan Referrals: Nicola Vinson DO [Primary Care Provider] - 03/01/18 9:30 am Clif Augustine, WET FINISHER [Advanced Practice Nurse] - (the office will call patient at home with follow up appointment)
[2018-02-28] MEDS: Insulin LISPRO 300 UNITS/3 ML VIAL SQ SCH ×4 (07:36→20:20)
[2018-02-28] MEDS: niCARdipine 40 MG/200 ML MLS IVC SCH (07:40)
[2018-02-28] MEDS ORDERED: *HR* LORazepam 1 MG TABLET PO PRN (07:43)
[2018-02-28] MEDS ORDERED: Naloxone 0.4 MG/ML INJ IVP PRN (07:43)
[2018-02-28] MEDS ORDERED: Dextrose Gel 15 GM/37.5 ML TUBE PO PRN ×2 (07:43)
[2018-02-28] MEDS ORDERED: Ondansetron 4 MG/2 ML VIAL IVP PRN (07:43)
[2018-02-28] MEDS ORDERED: *HR* Dextrose 50 % in Water (Syg) 50 ML SYRINGE IVP PRN (07:43)
[2018-02-28] MEDS ORDERED: Acetaminophen 325 MG TABLET PO PRN (07:43)
[2018-02-28] MEDS ORDERED: D5% in Water 1,000 ML IVC PRN (07:43)
[2018-02-28] MEDS ORDERED: Metoprolol XL (24 HR) Succ 50 MG TAB.ER.24H PO SCH (09:00)
[2018-02-28] MEDS: Furosemide 20 MG/2 ML VIAL IVP SCH ×2 (09:08→17:04)
[2018-02-28] MEDS: Chlorhexidine Rinse 15 ML MOUTHWASH MM SCH ×2 (09:08→20:20)
[2018-02-28] MEDS: Aspirin 81 MG TAB.CHEW PO SCH (09:09)
[2018-02-28] MEDS: *HR* Amiodarone 200 MG TABLET PO SCH (09:09)
[2018-02-28] MEDS: Lisinopril-HCTZ 20-12.5mg TABLET PO SCH (09:09)
[2018-02-28] MEDS: amLODIPine 5 MG TABLET PO SCH (09:09)
[2018-02-28] MEDS: Metoprolol XL (24 HR) Succ 50 MG TAB.ER.24H PO SCH (09:10)
[2018-02-28] MEDS: *HR* Metformin 500 MG TABLET PO SCH (09:10)
[2018-02-28] MEDS: *HR* OxyCODONE/APAP 5/325 TABLET PO PRN ×2 (12:55→20:19)
[2018-02-28] MEDS: Famotidine 20 MG TABLET PO SCH (17:05)
[2018-03-01] MEDS: Famotidine 20 MG TABLET PO SCH ×2 (06:47→16:57)
[2018-03-01] MEDS: *HR* Heparin 5,000 UNIT/ML VIAL SQ SCH ×2 (06:47→16:57)
[2018-03-01] MEDS: *HR* OxyCODONE/APAP 5/325 TABLET PO PRN ×3 (06:49→19:36)
[2018-03-01] MEDS: *HR* Amiodarone 200 MG TABLET PO SCH (07:57)
[2018-03-01] MEDS: *HR* Metformin 500 MG TABLET PO SCH (07:57)
[2018-03-01] MEDS: Lisinopril-HCTZ 20-12.5mg TABLET PO SCH (07:57)
--- NOTE | 2018-03-01 07:57 | Cardiothoracic Progress Note ---
Date of Encounter: 03/01/18 Time of Encounter: 07:56 - Assessment and plan (1) NSTEMI (non-ST elevated myocardial infarction) Current Visit: Yes Status: Acute The patient remained hemodynamic stable overnight. She is breathing comfortably. She has been able to ambulate in the hallways without difficulty. The assessment and plan as outlined above was discussed with the patient and/ or family members who expressed understanding and agreement. All questions were answered. - Subjective Procedure(s) Performed: POD#5 S/P CABG2 Interval history: The patient remained hemodynamically stable overnight. She is breathing comfortably. She has no complaints. She remains in normal sinus rhythm. Vital Signs, Last 4 Hours Temp Pulse Resp Pulse Ox 03/01/18 07:53 18 100 03/01/18 07:16 98.4 F 78 18 99 03/01/18 04:50 16 96 Oxgyen Flow Rate Oxygen Flow Rate (LPM) 2 Weight 02/27/18 02/28/18 03/01/18 23:59 23:59 23:59 Weight 118.1 kg 116.9 kg - Physical Examination General: Conversant, No Apparent Distress Neck: No JVD, Normal carotid pulses Cardiac: Reg Rate and Rhythm, Normal S1 and S2, No Murmur Incision: No signs of infection, Dry/intact dressing Sternum: Stable Lungs: Normal Breath Sounds, No Wheeze, Rales, Rhonchi Neuro: Alert and responsive, No focal deficits noted Vascular: Normal capillary refill Extremities: No Clubbing, No Cyanosis, No Edema - Labs 02/26/18 03:00 02/26/18 03:00 - VTE Documentation of Mechanical Device: Graduated compression elastic hosiery Consult Discharge Plan - Plan Referrals: Nicola Vinson DO [Primary Care Provider] - 03/10/18 9:30 am Keven Mcintyre DO [Partnered Physician] - 03/30/18 10:00 am Candido Almaraz MD [Partnered Physician] - 03/17/18 1:30 pm
[2018-03-01] MEDS: Chlorhexidine Rinse 15 ML MOUTHWASH MM SCH ×2 (07:58→20:35)
[2018-03-01] MEDS: amLODIPine 5 MG TABLET PO SCH (07:58)
[2018-03-01] MEDS: Metoprolol XL (24 HR) Succ 50 MG TAB.ER.24H PO SCH (07:58)
[2018-03-01] MEDS: Aspirin 81 MG TAB.CHEW PO SCH (07:58)
[2018-03-01] MEDS: Furosemide 20 MG/2 ML VIAL IVP SCH ×2 (07:58→16:57)
[2018-03-01] MEDS: Insulin LISPRO 300 UNITS/3 ML VIAL SQ SCH ×4 (07:59→20:22)
[2018-03-02] MEDS: *HR* OxyCODONE/APAP 5/325 TABLET PO PRN ×2 (04:49→11:17)
[2018-03-02 05:03] LABS: Basophils % 0.1 %; Eosinophils # 0.2 K/mcL (0.0-0.6); Eosinophils % 2.6 %; Hematocrit 29.4 % (35.3-44.9); Hemoglobin 9.6 g/dL (11.5-15.4); Immature Granulocytes % 1.4 % (0-4); Lymphocytes # 1.1 K/mcL (0.6-4.6); Lymphocytes % 12.4 %; Mean Corpuscular HGB Conc 32.7 g/dL (31.6-35.5); Mean Corpuscular Hemoglobin 30.6 pg (28.0-33.3); Mean Corpuscular Volume 93.6 fL (83.0-100.0); Monocytes # 0.5 K/mcL (0.0-1.3); Neutrophils # 6.8 K/mcL (1.6-8.9); Platelet Count 334 K/mcL (140-400); Red Blood Count 3.14 M/mcL (3.82-4.97); Red Cell Distribution Width 15.5 % (11.5-14.5); Segmented Neutrophils % 77.5 %
[2018-03-02 05:22] LABS: BUN/Creatinine Ratio 30 (6-26); Blood Urea Nitrogen 14 mg/dL (8-23); Calcium 8.6 mg/dL (8.6-10.3); Carbon Dioxide 29 mEq/L (23-29); Chloride 96 mEq/L (98-107); Glucose 123 mg/dL (70-105); Osmolality,Calculated 282 (280-300); Potassium 3.6 mEq/L (3.5-5.1); Sodium 135 mEq/L (136-145); eGFR For African Americans > 60 (> 60); eGFR For Non-African Americans > 60 (> 60)
[2018-03-02] MEDS: Famotidine 20 MG TABLET PO SCH (06:05)
[2018-03-02] MEDS: *HR* Heparin 5,000 UNIT/ML VIAL SQ SCH (06:05)
--- NOTE | 2018-03-02 07:38 | Discharge Summary ---
Date of Encounter: 03/02/18 Time of Encounter: 07:33 - Discharge Diagnosis (1) NSTEMI (non-ST elevated myocardial infarction) Priority: Primary Status: Acute - Hospital Course Hospital course: Ms. Jean is a 62 year old type II diabetic, hypertensive, moderately obese lady with hypercholesterolemia who presented to [facility] after experiencing sudden onset of substernal chest pain and camping at the time and EMS was notified. During this port to the emergency department the patient developed acute respiratory distress and required intubation. In the emergency department she was found to have elevated troponin I levels and ECG changes consistent with an acute NSTEMI. An echocardiogram performed at that time revealed an LVEF 25%. Subsequent cardiac catheterization revealed severe 3 vessel CAD and an LVEF 40%. In particular, the patient had a 60% distal left main lesion, a 90% proximal LAD lesion, a completely occluded LCx, and a 99% proximal RCA lesion. She was recommended for high risk CABG. Given her acute respiratory distress requiring intubation and her depressed LVEF, she was allowed to recover over the next few days. She was extubated and her LVEF improved to 40-45%. The patient underwent CABG 2 on 02/24/2018. Her postoperative course was uncomplicated and she was transferred to the stepdown unit when a bed is available. She was ambulating without complaints of substernal chest pain or shortness of breath. The patient was discharged home on POD #6. - Time Spent with Patient Total time spent providing and/or coordinating discharge services: - Discharge Medications Prescriptions: OxyCODONE/APAP 5/325 [Percocet 5/325 MG] 1 each PO Q4HR PRN 7 Days #42 tablet PRN Reason: Severe Pain Metoprolol XL (24 HR) Succ [Toprol Xl] 50 mg PO DAILY #30 tab.er.24h Rosuvastatin [Crestor] 20 mg PO HS #30 tablet Home Medications: Aspirin [Adult Aspirin Regimen] 81 mg PO DAILY 02/20/18 [History] Escitalopram [Lexapro] 10 mg PO DAILY 02/20/18 [History] Lisinopril/Hydrochlorothiazide [Zestoretic 20-12.5 mg Tablet] 1 tab PO DAILY 09/09 [History] Timolol Maleate 0.25% 1 drop LEFT EYE BID 02/20/18 [History] amLODIPine [Norvasc] 5 mg PO DAILY 02/20/18 [History] metFORMIN [Glucophage] 500 mg PO 0800 02/20/18 [History] Metoprolol XL (24 HR) Succ [Toprol Xl] 50 mg PO DAILY #30 tab.er.24h 03/02/18 [ Rx] OxyCODONE/APAP 5/325 [Percocet 5/325 MG] 1 each PO Q4HR PRN 7 Days #42 tablet [Rx] Rosuvastatin [Crestor] 20 mg PO HS #30 tablet 03/02/18 [Rx] Allergies/Adverse Reactions: 3 Allergy/AdvReac Type Severity Reaction Status Date / Time No Known Allergies Allergy Verified 02/20/18 10:08 Date of admission: 02/20/18 06:01 Primary care physician: James Vinson DO Consults: 02/20/18 15:58 Consult to Cardiothoracic Surgery [CONS] Routine Consulting Provider: Cardiothoracic Surgery Carney Reason for Consult: 3VCAD, eval for CABG Call Completed: Yes 02/22/18 08:05 Consult to Gastroenterology [CONS] Routine Consulting Provider: Gastroenterology Renetta Reason for Consult: elevated liver enzymes Time Notified: 08:06 Call Completed: Yes 02/24/18 11:48 Consult to Cardiac Rehabilitation-Phase1 [CONS] Routine Comment: Reason for Consult: Post open heart Call Completed: Yes Consult to Survey Project Manager [CONS] Routine Reason for SW Consult: open heart 02/28/18 12:20 Consult to Physical Therapy [CONS] Routine Comment: Evaluate, develop and implement POC Reason for Consult: Evaluation for short-term inpatient rehabilitation placement after discharge Does patient have active BEDREST order?: No Is patient medically & hemodynamically stable?: Yes Patient assessed for mobility or mobilized this visit?: Yes 02/28/18 12:22 Consult to Occupational Therapy [CONS] Routine Comment: Evaluate, develop and implement POC Reason for Consult: Evaluation for short-term inpatient rehabilitation placement after discharge Does patient have active BEDREST order?: No Is patient medically & hemodynamically stable?: Yes Patient assessed for mobility or mobilized this visit?: Yes Procedure(s) Performed: 1. Cardiac catheterization performed 02/20/2018. 2. CABG 2 (WATKINS to LAD, SVG to RCA) performed 02/24/2018. 3. Endoscopic vein harvesting, greater saphenous vein from right lower extremity performed 02/24/2018. Discharging clinician: Mitchel Sy Anticipated date of discharge: 03/02/18 Physical Examination Vital Signs, Last 4 Hours Resp Pulse Ox 03/02/18 04:43 16 94 General: Conversant, No Apparent Distress HEENT: Atraumatic, Normocephaly, Trachea midline Neck: No JVD, Normal carotid pulses Cardiac: Reg Rate and Rhythm, Normal S1 and S2, No Murmur Lungs: Normal Breath Sounds, No Wheeze, Rales, Rhonchi Neuro: Alert and responsive, No focal deficits noted Vascular: Normal capillary refill Skin: No rashes noted on visualized skin Musculoskeletal: No Chest Wall Tenderness Extremities: No Clubbing, No Cyanosis, No Edema - Patient Status Disposition: Home, Self-Care Condition: Good Functional capacity at discharge: independent ambulation Overall status at discharge: patient is progressing back to baseline - Discharge Instructions Follow Up With: Nicola Vinson DO [Primary Care Provider] - 03/10/18 9:30 am Keven Mcintyre DO [Partnered Physician] - 03/30/18 10:00 am Candido Almaraz MD [Partnered Physician] - 03/17/18 1:30 pm - Diet and Activity Activity: sternal precautions, no driving for four weeks, no lifting greater than 10 pounds for eight weeks Diet: diabetic diet, low fat, low cholesterol [facility] Aspirin Cont/Prescribed at DC: Yes Beta Rhina Cont/Prescribed at DC: Yes Statin Cont/Prescribed at DC: Yes ARI/ARB Cont/Prescribed at DC: Yes - VTE Documentation of Mechanical Device: Graduated compression elastic hosiery
[2018-03-02] MEDS: Insulin LISPRO 300 UNITS/3 ML VIAL SQ SCH ×2 (07:51→12:51)
--- NOTE | 2018-03-02 07:52 | Physician Discharge Referral ---
Home Health/Hosp Referral Info Transfer to: Home Health Provider in Charge Post Discharge: PCP - Diagnosis (1) NSTEMI (non-ST elevated myocardial infarction) Priority: Primary Status: Acute - Respiratory Orders Smoking Cessation: Smoking cessation has been advised. For more information, call the [place] Tobacco Quit Line at 9-808-EIXH-NOW. - Diet/Nutrition Diet/Nutrition Orders: Cardiac - Activity Activity Orders: Up ad gi, Ambulate - Services Needed Following services are medically necessary services: Home Health Aide - Transfer Medications Prescriptions: OxyCODONE/APAP 5/325 [Percocet 5/325 MG] 1 each PO Q4HR PRN 7 Days #42 tablet PRN Reason: Severe Pain Metoprolol XL (24 HR) Succ [Toprol Xl] 50 mg PO DAILY #30 tab.er.24h Rosuvastatin [Crestor] 20 mg PO HS #30 tablet Home Medications: Aspirin [Adult Aspirin Regimen] 81 mg PO DAILY 02/20/18 [History] Escitalopram [Lexapro] 10 mg PO DAILY 02/20/18 [History] Lisinopril/Hydrochlorothiazide [Zestoretic 20-12.5 mg Tablet] 1 tab PO DAILY 09/09 [History] Timolol Maleate 0.25% 1 drop LEFT EYE BID 02/20/18 [History] amLODIPine [Norvasc] 5 mg PO DAILY 02/20/18 [History] metFORMIN [Glucophage] 500 mg PO 0800 02/20/18 [History] Metoprolol XL (24 HR) Succ [Toprol Xl] 50 mg PO DAILY #30 tab.er.24h 03/02/18 [ Rx] OxyCODONE/APAP 5/325 [Percocet 5/325 MG] 1 each PO Q4HR PRN 7 Days #42 tablet [Rx] Rosuvastatin [Crestor] 20 mg PO HS #30 tablet 03/02/18 [Rx] Allergies/Adverse Reactions: 3 Allergy/AdvReac Type Severity Reaction Status Date / Time No Known Allergies Allergy Verified 02/20/18 10:08 Certification: Further, I certify that my clinical findings support that this patient is homebound (i.e. absences from home require considerable and taxing effort and are for medical reasons or episcopal services or infrequently or short duration when for other reasons) because: Homebound Reason: Post-surgery restriction and or conditions limit ability to leave home Attestation: My signature below is to certify that this patient is under my care and that I, or nurse practitioner, or a physician's accountant assistant working with me, has a face-to -face encounter with this patient.
[2018-03-02] MEDS: Chlorhexidine Rinse 15 ML MOUTHWASH MM SCH (08:14)
[2018-03-02] MEDS: Furosemide 20 MG/2 ML VIAL IVP SCH (08:14)
[2018-03-02] MEDS: *HR* Metformin 500 MG TABLET PO SCH (08:15)
[2018-03-02] MEDS: *HR* Amiodarone 200 MG TABLET PO SCH (08:15)
[2018-03-02] MEDS: Lisinopril-HCTZ 20-12.5mg TABLET PO SCH (08:15)
[2018-03-02] MEDS: Aspirin 81 MG TAB.CHEW PO SCH (08:15)
[2018-03-02] MEDS: Metoprolol XL (24 HR) Succ 50 MG TAB.ER.24H PO SCH (08:16)
[2018-03-02] MEDS: amLODIPine 5 MG TABLET PO SCH (08:16)
[2018-03-02 12:15] VITALS: BP 112/78
== END 2018-03-02 15:30 | disposition home or self-care (01) | DRG 233 ==
LOC: EMEROO 02:47 → SUATTDRO 06:01 → ICNU 06:01 → 2NNU 02-22 10:10 → ICNU 02-24 08:12 → 2NNU 02-28 12:59
PROVIDERS: ADMIT Family Medicine; ATTEND Thoracic Surgery (Cardiothoracic Vascular Surgery)